=== PATIENT | male | born 1940 | race Caucasian/White ===

== ENCOUNTER → 2017-07-08 09:13 | Outpatient (POV) | payer MEDICARE, SELFPAY | PROVIDERS: Visit Provider Podiatrist | DX: Z00.00 Encounter for general adult medical examination without abnormal findings (principal) ==

== ENCOUNTER → 2017-07-22 10:15 | Outpatient (POV) | payer MEDICARE, SELFPAY | PROVIDERS: Visit Provider Podiatrist | DX: Z00.00 Encounter for general adult medical examination without abnormal findings (principal) ==

== ENCOUNTER → 2017-09-21 14:36 | Outpatient (CLI) | payer MEDICARE, SELFPAY ==
--- NOTE | 2017-09-21 14:46 | XR_ITS ---
XR foot wt bearing RT 3V HISTORY: Post traumatic pain ORDERING PHYSICIAN: Cristina Fowler DPM PATIENT AGE: 77 years COMPARISON: None FINDINGS: There is moderate hallux valgus with the first metatarsophalangeal angle of 34 degrees with hypertrophic changes of the distal aspect of the first metatarsal. No acute fracture or dislocation. There are old fracture of the distal tibia. IMPRESSION: Hallux valgus with bunion formation, no acute finding
--- NOTE | 2017-09-21 14:46 | XR_ITS ---
XR foot wt bearing LT 3V HISTORY: Posttraumatic pain ORDERING PHYSICIAN: Cristina Fowler DPM PATIENT AGE: 77 years COMPARISON: None FINDINGS: There is an oblique mildly displaced fracture involving the mid shaft of the fifth metatarsal. There is 3 mm medial displacement of the distal fracture fragment. No other significant anomalies are evident. IMPRESSION: Oblique mildly displaced fracture midshaft fifth metatarsal
== END ==
PROVIDERS: PCP Internal Medicine Adolescent Medicine; Visit Provider Podiatrist
DX: M79.672 Pain in left foot (principal)
CPT/HCPCS: 73630

== ENCOUNTER → 2017-10-24 08:38 | Outpatient (CLI) | payer MEDICARE, SELFPAY ==
--- NOTE | 2017-10-24 08:39 | XR_ITS ---
XR foot wt bearing LT 3V HISTORY: Pain, follow-up fracture ITS.REASON: fracture follow up ORDERING PHYSICIAN: Cristina Fowler DPM PATIENT AGE: 77 years COMPARISON: 09/21/2017 FINDINGS: Healing oblique fractures noted involving the mid to distal shaft of the fifth metatarsal with developing callus formation. There is approximate 4 mm medial displacement of the distal fracture fragment with good alignment. IMPRESSION: Healing fifth metatarsal fracture with mild displacement
== END ==
PROVIDERS: Visit Provider Podiatrist
DX: S92.352A Displaced fracture of fifth metatarsal bone, left foot, initial encounter for closed fracture (principal)
CPT/HCPCS: 73630

== ENCOUNTER → 2019-04-12 15:08 | Outpatient (CLI) | payer MEDICARE, SELFPAY ==
--- NOTE | 2019-04-12 15:22 | XR_ITS ---
PROCEDURE: XR FOOT WT BEARING RT 3V CLINICAL INDICATION: foot pain COMPARISON: [id number] XR foot wt bearing LT 3V from 09/21/2017 [id number] XR foot wt bearing RT 3V from 09/21/2017 [id number] XR foot wt bearing LT 3V from 10/24/2017 FINDINGS: There is a transverse fracture involving the base of the 5th metatarsal with mild proximal displacement of the proximal fracture fragment by 4 mm. There is mild hallux valgus with osteoarthritis of the 1st MTP joint and mild degenerative changes of the tarsal metatarsal junction. There is an old fracture of the distal tibia IMPRESSION: Transverse fracture base of 5th metatarsal with mild displacement Dictated by: Per Reyez MD 04/12/2019 16:32 Electronically signed by Per Reyez MD in [place] 04/12/2019 16:32
--- NOTE | 2019-04-12 15:22 | XR_ITS ---
PROCEDURE: XR ANKLE WT BEARING RT MIN 3V CLINICAL INDICATION: foot pain Pain, history of fracture COMPARISON: No exams were available for comparison FINDINGS: There is an old healed fracture involving the distal tibia. A faint calcific density is present distal to the fibula and could be due to an old injury. The ankle joint space is well preserved. There is a prominent posterior talar process. IMPRESSION: Old distal tibial fracture. Calcific density is present distal to the tip of the fibula and could be due to an avulsion injury age indeterminate. There are no old ankle films available for comparison Dictated by: Per Reyez MD 04/12/2019 16:33 Electronically signed by Per Reyez MD in [place] 04/12/2019 16:33
== END ==
PROVIDERS: Visit Provider Podiatrist
DX: M79.671 Pain in right foot (principal); M25.571 Pain in right ankle and joints of right foot
CPT/HCPCS: 73610; 73630

== ENCOUNTER → 2019-05-28 10:29 | Outpatient (CLI) | payer MEDICARE, SELFPAY ==
--- NOTE | 2019-05-28 11:02 | XR_ITS ---
PROCEDURE: XR FOOT WT BEARING RT 3V CLINICAL INDICATION: RT FOOT PAIN COMPARISON: No exams were available for comparison FINDINGS: There is a minimally displaced fracture involving the base of the 5th metatarsal. This is of unknown age. Please correlate with history. There is mild prominence of the posterior talar process. There is hallux valgus with mild osteoarthritic change of the 1st MTP joint and bunion formation of the distal aspect of the 1st metatarsal. Other findings:None. IMPRESSION: 1. Minimally distracted fracture at the base of the 5th metatarsal. 2. Hallux valgus with osteoarthritic change Dictated by: Per Reyez MD 05/28/2019 11:37 Electronically signed by Per Reyez MD in [place] 05/28/2019 11:37
== END ==
PROVIDERS: PCP Internal Medicine Adolescent Medicine; Visit Provider Podiatrist
DX: S90.31XA Contusion of right foot, initial encounter (principal); S90.121A Contusion of right lesser toe(s) without damage to nail, initial encounter; S92.351A Displaced fracture of fifth metatarsal bone, right foot, initial encounter for closed fracture
CPT/HCPCS: 73630

== ENCOUNTER → 2020-02-19 11:02 | Outpatient (CLI) | payer MEDICARE, SELFPAY ==
[2020-02-19 12:27] LABS: Chloride 107 mmol/L (98-107); Potassium 4.1 mmoL/L (3.5-5.1); Sodium 139 mmol/L (136-145)
[2020-02-19 12:30] LABS: Alanine Aminotransferase 12 U/L (12-78); Albumin Level 4.2 g/dl (3.5-5.0); Albumin/Globulin Ratio 1.2 (1.1-1.8); Alkaline Phosphatase 121 U/L (38-126); Anion Gap 10.1 mEq/L (5-15); Aspartate Amino Transferase 20 U/L (17-59); Bilirubin,Total 0.6 mg/dl (0.2-1.3); Blood Urea Nitrogen 8 mg/dl (9-20); Calcium 9.4 mg/dl (8.4-10.2); Carbon Dioxide 26 mmol/L (22.0-30.0); Cholesterol 213 mg/dl (140-200); Estimated Glomerular Filt Rate 81 ml/min (>60); GFR (African American) 98 ML/MIN (>60); Globulin 3.4 g/dL (1.3-3.2); Glucose 100 mg/dl (74-100); Total Protein,Serum 7.6 g/dl (6.3-8.2); Triglycerides 137 mg/dl (30-150); VLDL Cholesterol 27 mg/dL (0-40)
[2020-02-19 12:31] LABS: Chol/HDL Ratio 4.7 (1-3.5); HDL Cholesterol 45 mg/dl (40-60)
[2020-02-19 12:41] LABS: Direct LDL Cholesterol 124.09 mg/dL (100-129)
[2020-02-19 20:34] LABS: Free T4 (Free Thyroxine) 0.66 ng/dl (0.78-2.19)
== END ==
PROVIDERS: Visit Provider Nurse Practitioner Family
DX: E03.9 Hypothyroidism, unspecified (principal)
CPT/HCPCS: 36415; 80053; 80061; 84439; 84443

== ENCOUNTER 2021-05-22 09:11 | Emergency (ER) | payer MEDICARE, SELFPAY ==
[2021-05-22 10:22] VITALS: BP 135/84; PULSE 86; RESP 18; TEMP 36.8; O2SAT 97; BMI 17.9
--- NOTE | 2021-05-22 11:01 | HMH.EDUTC ---
[facility] [place] Disposition Clinical Impression: Right foot infection, Non-pressure chronic ulcer of other part of right foot limited to breakdown of skin, Callus of foot Foot ulcer, right Qualifiers: Non-pressure ulcer stage: with other severity Qualified Code(s): L97.518 - Non-pressure chronic ulcer of other part of right foot with other specified severity Disposition: Home, Self-Care Condition on Discharge: Good Instructions: Diabetic Foot Ulcer, DI for Diabetic Foot Ulcer Additional Instructions: Take tylenol or ibuprofen for pain or fever. Take the medications as directed. Follow up with your regular doctor. Follow up with podiatry. I put in a referral to Dr. Fowler, but you will need to call her office to schedule an appointment. Make sure you follow up with podiatry because you could lose you toe or your foot if this is not watched closely and treated appropriately. GO TO THE ER FOR ANY WORSENING SYMPTOMS Prescriptions: Mupirocin [Bactroban 2% Ointment 22gm tube] 1 applicatio TP TID 7 Days #1 gm Transmission Status: Received by [facility] #[id number] Ciprofloxacin HCl [Cipro 500mg Tab] 500 mg PO BID 10 Days #20 tab Transmission Status: Received by [facility] #[id number] clindamycin HCL [Cleocin HCl] 300 mg PO Q8H 10 Days #30 cap Transmission Status: Received by [facility] #[id number] Referrals: Provider,Referral, [Primary Care Provider] - Time of Disposition: 11:51 Medical Decision Making - Medical Records Medical records reviewed: No: I reviewed the patient's medical records. - Tanvir Inquiry Pt receiving controlled substance: No Vital Signs: 05/22/21 10:22 05/22/21 12:03 Temperature 98.2 F 98.2 F Temperature Source Oral Pulse Rate 86 Pulse Rate [Left] 86 Respiratory Rate 18 18 Blood Pressure 135/84 Blood Pressure [Right Arm] 135/84 Blood Pressure Mean [Right Arm] 101 02 Sat by Pulse Oximetry 97 Orders (Tests/Meds): ED MEDICATIONS Discontinued Medications Generic Name Dose Route Start Last Admin Trade Name Freq PRN Reason Stop Dose Admin Ceftriaxone Sodium 1 gm 05/22/21 11:20 05/22/21 11:31 Ceftriaxone 1gm Vial IM 05/22/21 11:21 1 gm ONCE ONE Administration Lidocaine HCl 0 ml 05/22/21 11:20 05/22/21 11:31 Lidocaine 1% 5ml Pf Vial IM 05/22/21 11:21 2 ml ONCE ONE Administration [facility] [place] HPI - General Stated complaint: right infection and redness of index toe Time Seen by Provider: 05/22/21 11:01 Mode of Arrival: Ambulatory Source of Information: Patient Limitations: No Limitations HEENT Symptoms (Recalled from RN notes): No Resp Symptoms (Recalled from RN notes): No Skin Symptoms (Recalled from RN notes): Yes MS Symptoms (Recalled from RN notes): Yes Functional Status (Recalled from RN notes): wnl - History of Present Illness Provider Complaint: pt c/o R toe w/ infection for seven weeks...Marvin and me cannot get well. . pts second toe on his R foot is completely red. - Related Data Home Medications Medication Instructions Recorded Confirmed levothyroxine 50 mcg capsule 50 mcg PO DAILY 04/16/19 05/28/19 Previous Rx's Medication Instructions Recorded Ciprofloxacin HCl [Cipro 500mg 500 mg PO BID 10 Days #20 tab 05/22/21 Tab] Mupirocin [Bactroban 2% Ointment 1 applicatio TP TID 7 Days #1 gm 05/22/21 22gm tube] clindamycin HCL [Cleocin HCl] 300 mg PO Q8H 10 Days #30 cap 05/22/21 Allergies Allergy/AdvReac Type Severity Reaction Status Date / Time Bactrim DS Allergy Uncoded 05/28/19 12:42 - Worker's Comp Is this a Worker's Comp case?: No [facility] History - Hepatitis A Screen Drug use history?: No High risk sexual behaviors?: No History of sexually transmitted infection?: No Currently employed?: No Childcare worker?: No Do you have indoor plumbing?: Yes Do you have electricity?: Yes Attestation statement:: This patient has been screened for Hepatitis A risk fact
[2021-05-22 12:03] VITALS: BP 135/84; PULSE 86; RESP 18; TEMP 36.8
== END 2021-05-22 12:05 | disposition home or self-care (01) ==
PROVIDERS: Emergency Provider Nurse Practitioner Family
DX: L97.511 Non-pressure chronic ulcer of other part of right foot limited to breakdown of skin (principal)
CPT/HCPCS: G0463; 87070; 87077; 87186; 87205; 96372; 99202; J0696

== ENCOUNTER 2023-08-08 16:06 | Inpatient (IN) | payer MEDICARE, SELFPAY ==
[2023-08-08] VITALS (17 sets, daily range): BP systolic 108–139; BP diastolic 71–112; PULSE 79–114; RESP 12–24; TEMP 36.6–36.9; O2SAT 87–99; BMI 18.6
--- NOTE | 2023-08-08 16:10 | XR_ITS ---
PROCEDURE INFORMATION: Exam: XR Chest Exam date and time: 08/08/2023 4:18 PM Age: 83 years old Clinical indication: Other: Hypoxia; Additional info: Hypoxia, AMS TECHNIQUE: Imaging protocol: Radiologic exam of the chest. Views: Portable semi upright chest x-ray. . COMPARISON: No relevant prior studies available. FINDINGS: Lungs: Consolidation in the right lung base near the costophrenic angle. No other airspace consolidation or nodules.. Pleural spaces: No pleural effusion. No pneumothorax. Heart/Mediastinum: No abnormalities. No cardiomegaly. No pulmonary vascular congestion. Calcified azygos lymph node. Bones/joints: No fractures or bone lesions. IMPRESSION: Right lower lobe pneumonia.
--- NOTE | 2023-08-08 16:10 | CT_ITS ---
PROCEDURE INFORMATION: Exam: CTA Head With Contrast, Arteriography Exam date and time: 08/08/2023 5:21 PM Age: 83 years old Clinical indication: Other: AMS TECHNIQUE: Imaging protocol: Computed tomographic angiography of the head with contrast. Exam focused on the arteries. 3D rendering (Not supervised by radiologist): MIP and/or 3D reconstructed images were created by the technologist. Radiation optimization: All CT scans at this facility use at least one of these dose optimization techniques: automated exposure control; mA and/or kV adjustment per patient size (includes targeted exams where dose is matched to clinical indication); or iterative reconstruction. Contrast material: ISO 370; Contrast volume: 90 ml; Contrast route: INTRAVENOUS (IV); COMPARISON: CT HEAD/BRAIN WO CON 08/08/2023 5:21 PM FINDINGS: ANTERIOR CIRCULATION: Right internal carotid artery: Intracranial segment is patent with no significant stenosis. No aneurysm. Right middle cerebral artery: No occlusion or significant stenosis. No aneurysm. Right anterior cerebral artery: No occlusion or significant stenosis. No aneurysm. Left internal carotid artery: Intracranial segment is patent with no significant stenosis. No aneurysm. Left middle cerebral artery: No occlusion or significant stenosis. No aneurysm. Left anterior cerebral artery: No occlusion or significant stenosis. No aneurysm. POSTERIOR CIRCULATION: Right vertebral artery: No occlusion or significant stenosis. No aneurysm. Terminates in the PICA. Left vertebral artery: No occlusion or significant stenosis. No aneurysm. Basilar artery: No occlusion or significant stenosis. No aneurysm. Right posterior cerebral artery: No occlusion or significant stenosis. No aneurysm. Left posterior cerebral artery: No occlusion or significant stenosis. No aneurysm. Hypoplastic P1. Brain: No definite mass, mass effect, or midline shift. Cerebral ventricles: No ventriculomegaly. Bones/joints: No acute fracture or focal bone lesions. Soft tissues: No masses or swelling. IMPRESSION: No large vessel occlusion. No acute intracranial abnormalities.
--- NOTE | 2023-08-08 16:10 | CT_ITS ---
PROCEDURE INFORMATION: Exam: CT Head Without Contrast Exam date and time: 08/08/2023 5:21 PM Age: 83 years old Clinical indication: Altered mental status/memory loss; Additional info: AMS TECHNIQUE: Imaging protocol: Computed tomography of the head without contrast. Radiation optimization: All CT scans at this facility use at least one of these dose optimization techniques: automated exposure control; mA and/or kV adjustment per patient size (includes targeted exams where dose is matched to clinical indication); or iterative reconstruction. COMPARISON: CT ANGIO HEAD 08/08/2023 5:21 PM FINDINGS: Limitations: Motion artifact. Brain: No hemorrhage. Moderately extensive low density in the white matter of both cerebral hemispheres without mass effect. No other intra-axial or extra-axial lesions or masses. No midline shift. Cerebral ventricles: Ventricular systems are mildly prominent but are age-appropriate. Paranasal sinuses: Visualized sinuses are well aerated. No fluid levels. Mastoid air cells: Visualized mastoid air cells are well aerated. Bones: No acute fracture or bone lesions. Soft tissues: No abnormalities. IMPRESSION: 1. No acute intracranial abnormality. 2. Cerebral atrophy and moderately extensive white matter microvascular disease.
--- NOTE | 2023-08-08 16:10 | CT_ITS ---
PROCEDURE INFORMATION: Exam: CTA Chest With Contrast Exam date and time: 08/08/2023 5:25 PM Age: 83 years old Clinical indication: Other: Hypoxia; Additional info: AMS, hypoxia TECHNIQUE: Imaging protocol: Computed tomographic angiography of the chest with contrast. Exam focused on the arteries. 3D rendering (Not supervised by radiologist): MIP and/or 3D reconstructed images were created by the technologist. Radiation optimization: All CT scans at this facility use at least one of these dose optimization techniques: automated exposure control; mA and/or kV adjustment per patient size (includes targeted exams where dose is matched to clinical indication); or iterative reconstruction. Contrast material: ISO 370; Contrast volume: 90 ml; Contrast route: INTRAVENOUS (IV); COMPARISON: CR XR CHEST PORTABLE 08/08/2023 4:18 PM FINDINGS: Pulmonary arteries: No large central pulmonary emboli. Assessment of the small peripheral subsegmental branch vessels in the lung bases was limited due to respiratory motion. 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 No dissection or rupture. Mild-moderate aortic tortuosity with mild calcific atherosclerosis. No mediastinal hematoma. Thyroid: The thyroid gland is moderately atrophic. Correlate clinically for evidence of hypothyroidism. Lungs: Mild-moderate bilateral bronchiectasis. Mild-moderate peripheral fibrosis in the upper, mid, and lower lung zacarias. Peripheral consolidative density in the lateral basilar right lower lobe is concerning for superimposed pneumonia versus non infectious alveolitis, or possibly a small zone of peripheral pulmonary contusion given the nearby lower right posterior rib fractures. No pulmonary mass lesions are identified. 2 cm aerated lung cyst in the lateral left lower lobe. Mild pleuroparenchymal scarring in the pulmonary apices bilaterally. Pleural spaces: No pleural effusion. No pneumothorax. Heart: Heart size normal. Mild coronary artery calcification. No pericardial effusion. Esophagus: The esophagus is largely contracted but demonstrates no gross abnormality. Lymph nodes: No supraclavicular or axillary adenopathy. Enlarged pretracheal retrocaval node, nonspecific. Bones/joints: Acute fracture of the posterior right 12th rib with mild displacement. Acute fracture of the right posterior 11th rib with slight displacement. Chronic fracture of the right posterior 10th and 9th ribs. No segmental rib fractures. Osteopenia. Soft tissues: The soft tissues of the chest wall demonstrate no acute abnormality. IMPRESSION: 1. No large central pulmonary emboli. Assessment of the small peripheral branch vessels in the lung bases was limited by respiratory motion. 2. Acute minimally displaced mildly displaced fractures of the right posterior 11th and 12th ribs. No pneumothorax. 3. Peripheral consolidative airspace disease in the posterolateral right lung base. This could represent pneumonia, alveolitis, or possibly small pulmonary contusion given the nearby rib fractures. 4. Mild-moderate peripheral interstitial fibrosis in the upper, mid, and basilar lung zacarias. Mild-moderate bilateral bronchiectasis. 5. Enlarged pretracheal retrocaval node, nonspecific.The thyroid gland is moderately atrophic. Correlate clinically for evidence of hypothyroidism.
--- NOTE | 2023-08-08 16:10 | CT_ITS ---
PROCEDURE INFORMATION: Exam: CTA Neck With Contrast Exam date and time: 08/08/2023 5:21 PM Age: 83 years old Clinical indication: Other: AMS TECHNIQUE: Imaging protocol: Computed tomographic angiography of the neck with contrast. Exam focused on the cervical segments of the vasculature. 3D rendering (Not supervised by radiologist): MIP and/or 3D reconstructed images were created by the technologist. Radiation optimization: All CT scans at this facility use at least one of these dose optimization techniques: automated exposure control; mA and/or kV adjustment per patient size (includes targeted exams where dose is matched to clinical indication); or iterative reconstruction. Contrast material: ISO 370; Contrast volume: 90 ml; Contrast route: INTRAVENOUS (IV); COMPARISON: CT ANGIO HEAD 08/08/2023 5:21 PM FINDINGS: Right common carotid artery: No stenosis. No dissection or occlusion. Right internal carotid artery: No stenosis of the extracranial segment. No dissection or occlusion. Right external carotid artery: No occlusion or stenosis of the origin. Left common carotid artery: No stenosis. No dissection or occlusion. Left internal carotid artery: No stenosis of the extracranial segment. No dissection or occlusion. Left external carotid artery: No occlusion or stenosis of the origin. Right vertebral artery: No stenosis. No dissection or occlusion. Left vertebral artery: No stenosis. No dissection or occlusion. Soft tissues: No masses or edema. Bones/joints: No acute fracture, subluxations, or bone lesions. Degenerative disc space narrowing and facet hypertrophy at multiple levels of the cervical spine. IMPRESSION: No stenosis or occlusion. REFERENCES: NASCET CRITERIA. The degree of stenosis in the cervical segment of the internal carotid artery is based on NASCET criteria. Normal is no stenosis. Mild is less than 50% stenosis. Moderate is 50-69% stenosis. Severe is 70% to 99% stenosis. Total occlusion is no detectable patent lumen.
--- NOTE | 2023-08-08 16:10 | CT_ITS ---
PROCEDURE INFORMATION: Exam: CT Abdomen And Pelvis With Contrast Exam date and time: 08/08/2023 5:25 PM Age: 83 years old Clinical indication: Other: AMS TECHNIQUE: Imaging protocol: Computed tomography of the abdomen and pelvis with contrast. Radiation optimization: All CT scans at this facility use at least one of these dose optimization techniques: automated exposure control; mA and/or kV adjustment per patient size (includes targeted exams where dose is matched to clinical indication); or iterative reconstruction. Contrast material: ISOVUE; Contrast volume: 70 ml; Contrast route: IV; COMPARISON: CT ANGIO CHEST PE PROTOCOL 08/08/2023 5:25 PM FINDINGS: Esophagus: The visualized distal esophagus is largely contracted without gross abnormality. Liver: Liver assessment is motion limited. Normal contour. No mass lesions. No intrahepatic biliary ductal dilatation. Gallbladder and bile ducts: Gallbladder is moderately distended but otherwise unremarkable. Nondilated bile ducts. Pancreas: Mild pancreatic atrophy without acute abnormality. No pancreatic ductal dilatation. Spleen: Normal. No splenomegaly. 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 This does not require further evaluation. The right adrenal gland is normal. Kidneys and ureters: No acute abnormalities. No hydronephrosis or hydroureter. No urolithiasis is identified although excretory phase contrast in the collecting system limits sensitivity for urolithiasis. Stomach and bowel: The stomach is unremarkable. The small bowel is nondilated with no gross abnormality. No acute colonic abnormalities. There are few diverticula present in the distal colon without evidence of acute diverticulitis. Appendix: No evidence of appendicitis. Intraperitoneal space: No peritoneal free fluid or air. Vasculature: No acute process. No abdominal aortic aneurysm. Mild-moderate calcific atherosclerosis. Lymph nodes: No adenopathy. Urinary bladder: Adames catheter in place with balloon appropriately positioned in the urinary bladder, which is largely contracted without gross abnormality. Reproductive: Severe prostate enlargement and heterogeneity, nonspecific, correlate with PSA. Bones/joints: No acute osseous abnormalities in the abdomen/pelvis. Osteopenia. Old healed and fixated fractures in the right hemipelvis without gross complication. Chronic appearing mild superior endplate compression deformities of L5 and L1. Lower right posterior rib fractures again noted, please see chest CT report. Soft tissues: Unremarkable. IMPRESSION: 1. No acute findings in the abdomen/pelvis. 2. Nonemergent findings detailed above.
--- NOTE | 2023-08-08 16:12 | HMH.EDGENADL ---
Discharge Plan Disposition Patient Disposition: Admitted Condition: Serious Prescriptions Prescriptions: No Action levothyroxine 100 mcg tablet 100 mcg PO DAILY Patient Comments: TAKE 1 TABLET BY MOUTH EVERY DAY gabapentin 100 mg capsule 100 mg PO TIDP PRN (Reason: Shingles Pain) Patient Comments: TAKE 1 CAPSULE BY MOUTH THREE TIMES DAILY NEEDED FOR SHINGLES PAIN Referrals Follow up/Referrals: Nate Fajardo MD [Primary Care Provider] - See instructions Clinical Impressions Clinical Impression: RLL pneumonia, UTI (urinary tract infection), Encephalopathy, metabolic, Septic shock Discharge ED Provider: Flynn Sanchez Adult HPI General Chief complaint: Weakness Stated complaint: hypoxia, been in bed for days Time Seen by Provider: 08/08/23 16:09 History of Present Illness HPI narrative: 83-year-old male with with past medical history significant for diabetes, hypothyroidism, presents today for evaluation of mental status. EMS states the patient was found in an altered state in his bed. Had reportedly been and has been alone for the past 2 to 3 days per neighbor who found him in his home. Blood pressure and blood glucose within range en route to ED. Further history this time difficult obtain Related Data Home Medications Medication Instructions Recorded Confirmed gabapentin 100 mg capsule 100 mg PO TIDP PRN Shingles Pain 08/08/23 08/08/23 levothyroxine 100 mcg tablet 100 mcg PO DAILY 08/08/23 08/08/23 Allergies Allergy/AdvReac Type Severity Reaction Status Date / Time Bactrim DS Allergy Uncoded 05/28/19 12:42 [facility] Disclaimer: The information contained in this section may have been updated after the patient was seen, as this information can be updated by other users. Medical History (Updated 08/08/23 @ 18:39 by Flynn Sanchez DO) Shingles Shingles (herpes zoster) polyneuropathy Diabetes Hypothyroid Social History (Updated 08/08/23 @ 17:45 by Kade Trammell RN) Smoking Status: Unknown if ever smoked alcohol intake: never substance use type: denies use current occupational status: retired Travel in the last 8 weeks: None household members: spouse and family housing: house ROS Obtained: Yes All systems reviewed & no additional complaints except as documented Physical Exam General General appearance: in no apparent distress, lethargic and cachectic Head Head exam: atraumatic and normocephalic Eye Eye exam: Present normal appearance, PERRL and EOMI ENT ENT exam: Present normal oropharynx and mucous membranes moist Neck Neck exam: Present full ROM; Absent meningismus Respiratory Respiratory exam: Present other (Decreased breath sounds on the right.); Absent respiratory distress, wheezes, stridor or accessory muscle use Cardiovascular Cardiovascular exam: Present normal rhythm and tachycardia Abdominal Exam Abdominal exam: Present soft; Absent distention, tenderness, guarding, rebound or rigidity Neurological Exam Neurological exam: Present alert and motor sensory deficit Expanded Neurological Exam Coma scale eye opening: Spontaneous Coma scale motor response: Withdraws to pain Coma scale verbal response: None Coma scale total: 9 Psychiatric Psychiatric exam: Present normal affect and normal mood Skin Skin exam: Present warm and dry Medical Decision Making Medical Records Medical records reviewed: Yes I reviewed the patient's medical records. Tanvir Inquiry Pt receiving controlled substance: No Tanvir was queried for this patient: No Vital Signs: 08/08/23 16:06 08/08/23 16:34 08/08/23 16:45 Temperature 97.8 F Temperature Source Axillary Pulse Rate 114 H 103 H Pulse Rate [Left] 108 H Respiratory Rate 18 24 18 Blood Pressure 139/112 H 115/74 Blood Pressure [Right Arm] 130/81 Blood Pressure Mean 117 87 Blood Pressure Mean [Right Arm] 97 Blood Pressure Source [Right Arm] Automatic Cuff Blood Pressure Position [Right Arm] Supine 02 Sat by Pulse Oximetry 87 L 95 96 Oxygen Delivery Method Room Air Nasal Cannula Nasal Cannula Oxygen Flow Rate (LPM) 4 4 08/08/23 17:01 08/08/23 17:34 08/08/23 17:46 Temperature Temperature Source Pulse Rate 108 H 102 H 102 H Pulse Rate [Left] Respiratory Rate 18 21 17 Blood Pressure 139/86 115/78 125/90 Blood Pressure [Right Arm] Blood Pressure Mean 103 90 95 Blood Pressure Mean [Right Arm] Blood Pressure Source [Right Arm] Blood Pressure Position [Right Arm] 02 Sat by Pulse Oximetry 97 98 98 Oxygen Delivery Method Nasal Cannula Nasal Cannula Nasal Cannula Oxygen Flow Rate (LPM) 2 2 4 08/08/23 18:00 08/08/23 18:15 Temperature Temperature Source Pulse Rate 91 H 94 H Pulse Rate [Left] Respiratory Rate 18 18 Blood Pressure 123/96 H 108/75 L Blood Pressure [Right Arm] Blood Pressure Mean 104 86 Blood Pressure Mean [Right Arm] Blood Pressure Source [Right Arm] Blood Pressure Position [Right Arm] 02 Sat by Pulse Oximetry 97 97 Oxygen Delivery Method Nasal Cannula Nasal Cannula Oxygen Flow Rate (LPM) 2 2 Lab Data Lab Results 08/08/23 16:12: VBG pH 7.43 H, VBG pCO2 31.8 L, VBG pO2 47.0 H, VBG HCO3 20.5 L, VBG Total CO2 21.5 L, VBG O2 Saturation 84.9 H, VBG Base Excess -3.9 L, VBG Lactic Acid 4.8 H 08/08/23 16:15: Urine Color Halle, Urine Appearance Clear, Urine pH 6.5, Ur Specific [place] 1.025, Urine Protein 1+, Urine Glucose (UA) Negative, Urine Ketones 1+, Urine Blood Trace-i, Urine Nitrate Positive, Urine Bilirubin 3+ A, Urine Urobilinogen >=8.0, Ur Leukocyte Esterase Negative, Urine RBC 3-5, Urine WBC None, Ur Squamous Epith Cells Occasional, Urine Bacteria Trace 08/08/23 16:18: WBC 14.4 H, RBC 5.98, Hgb 17.7, Hct 55.9 H, MCV 93.5, MCH 29.7, MCHC 31.7 L, RDW 16.3, Plt Count 257, MPV 8.9, Neut % (Auto) 93.7 H, Lymph % (Auto) 3.2 L, [place] % (Auto) 2.5, Eos % (Auto) 0.2, Baso % (Auto) 0.4, Neut # (Auto) 13.5 H, Lymph # (Auto) 0.5 L, [place] # (Auto) 0.4, Eos # (Auto) 0.0, Baso # (Auto) 0.1, Sodium 148 H, Potassium 5.3 H, Chloride 112 H, Carbon Dioxide 19 L, Anion Gap 22.3 H, BUN 62 H, Creatinine 1.10, Estimated Creat Clear 46, Estimated GFR 64, Est GFR ( Amer) 78, Glucose 140 H, Calcium 9.8, Total Bilirubin 2.5 H, AST 151 H, ALT 90 H, Alkaline Phosphatase 121, Total Creatine Kinase 2352 H*, Troponin I 0.06 H, Total Protein 9.4 H, Albumin 4.4, Globulin 5.0 H, Albumin/Globulin Ratio 0.9 L, TSH 21.20 H, Free T4 0.90 08/08/23 16:18 08/08/23 16:18 Orders (Tests/Meds): ED MEDICATIONS Generic Name Dose Route Start Last Admin Trade Name Fariha PRN Reason Stop Dose Admin Enoxaparin Sodium 40 mg 08/09/23 09:00 Enoxaparin 40mg/0.4ml Syringe SQ 09/08/23 08:59 DAILY MAGI Lactated Ringer's 1,870 mls @ 935 mls/hr 08/08/23 16:45 08/08/23 16:47 Lactated Ringer's 1000 Ml Bag 30 ml/kg infuse over 2 hr (1870 ml) 08/08/23 18:44 935 mls/hr IV Administration .Q2H ONE Doxycycline Hyclate 100 mg/ 250 mls @ 166.667 mls/hr 08/08/23 17:00 08/08/23 17:03 Sodium Chloride IV 08/18/23 16:59 166.667 mls/hr Q12H MAGI Administration Cefepime HCl 2 gm/ Sodium 100 mls @ 200 mls/hr 08/08/23 21:30 Chloride IV 08/18/23 21:29 Q12H MAGI Vancomycin/PEG/NADA/Lysine/Water 1.5 gm in 300 mls @ 150 mls/hr 08/08/23 18:45 Vancomycin 1.5gm/300ml (Peg) Premix IV 08/08/23 20:44 ONCE ONE Miscellaneous 1 each 08/08/23 18:30 08/08/23 18:34 Vancomycin Consult Request NOTAPPLIC 09/07/23 18:29 1 each CONSULT PHARMACY MAGI Administration Pantoprazole Sodium 40 mg 08/08/23 21:00 Pantoprazole 40mg Vial IV 09/07/23 20:59 HS MAGI Discontinued Medications Generic Name Dose Route Start Last Admin Trade Name Fariha PRN Reason Stop Dose Admin Ceftriaxone Sodium 2 gm/ 100 mls @ 200 mls/hr 08/08/23 16:49 08/08/23 17:01 Sodium Chloride IV 08/08/23 17:18 200 mls/hr Q24H ONE Administration Iopamidol 160 ml 08/08/23 17:28 08/08/23 17:29 Iopamidol-370 (76%);100ml Bottle IV 08/08/23 17:29 160 ml ONCE ONE Administration Levothyroxine Sodium 200 mcg 08/08/23 18:27 Levothyroxine Sodium 100 Mcg Vial IV 08/08/23 18:28 ONCE ONE Sodium Chloride 50 ml 08/08/23 17:28 08/08/23 17:29 0.9 % Sodium Chloride 50 Ml Vial IV 08/08/23 17:29 50 ml ONCE ONE Administration Sodium Chloride 10 ml 08/08/23 17:28 08/08/23 17:29 Sodium Chloride 0.9% 10ml Syr (Rad Only) IV 08/08/23 17:29 10 ml ONCE ONE Administration ORDERS Category Date Time Status CT abdomen pelvis w con Stat Cat Scan 08/08/23 16:[address] angio chest PE protocol Stat Cat Scan 08/08/23 16:[address] angio head Stat Cat Scan 08/08/23 16:[address] angio neck Stat Cat Scan 08/08/23 16:[address] head/brain wo con Stat Cat Scan 08/08/23 16:10 Completed CXR --portable [XR chest portable] Stat Exams 08/08/23 16:10 Completed CBC w/Auto Diff [Complete Blood Count Auto Diff] Stat Lab 08/08/23 16:18 Results CK [Creatine Kinase] Stat Lab 08/08/23 16:18 Completed CMP [Comprehensive Metabolic Panel] Stat Lab 08/08/23 16:18 Completed Complete Blood Count Auto Diff AMLAB Lab 08/09/23 06:00 Ordered Comprehensive Metabolic Panel AMLAB Lab 08/09/23 06:00 Ordered Free T4 (Free Thyroxine) Stat Lab 08/08/23 16:18 Completed Magnesium AMLAB Lab 08/09/23 06:00 Ordered TSH [Thyroid Stimulating Hormone] Stat Lab 08/08/23 16:18 Completed Trop I [Troponin I] Stat Lab 08/08/23 16:18 Completed Troponin I Q3H Lab 08/08/23 19:15 Ordered Troponin I Q3H Lab 08/08/23 22:15 Ordered UA [Urinalysis and Microscopic] Stat Lab 08/08/23 16:15 Ordered Blood Culture Stat Micro 08/08/23 18:17 Ordered VBG [Venous Blood Gas] Stat RT 08/08/23 16:15 Ordered Medical Decision Narrative: 83-year-old male with with past medical history significant for diabetes, hypothyroidism, presents today for evaluation of mental status. EMS states the patient was found in an altered state in his bed. Had reportedly been and has been alone for the past 2 to 3 days per neighbor who found him in his home. He was also found to be hypoxic per EMS. Further history difficult to obtain. On assessment, he was normotensive, tachycardic, afebrile. Minimally responsive, he did withdraw from pain. GCS of 9. Chest with decreased breath sounds on the right. Abdomen soft nondistended. On nonrebreather for oxygen support. No signs of trauma. Differential diagnoses include but limited to intracranial abnormality, ACS, arrhythmia, electrolyte disturbance, UTI, sepsis, septic shock, pleural effusion, pneumonia, pneumothorax, among others. EKG personally inter by me. Sinus tachycardia with a rate of 110 bpm. No ischemic changes. QTc is not prolonged at 386. Patient's lab workup today has been remarkable for a WBC of 14.4. VBG showing pH of 7.43. pCO2 31.8. Lactic acid of 4.8. Sodium 148, potassium 5.3, chloride 112. Anion gap of 22.3. BUN 62. Creatinine within range at 1.1. His CK is elevated at 2352. Initial troponin of 0.06. TSH 21.2, free T4 of 0.9. Urinalysis showing positive nitrates. CT scan of the head and CTA head/neck without any acute abnormalities. He does have a right lower lobe pneumonia on my informal interpretation on chest x-ray. On my wet read of the CT scan of the chest, I can also visualize a right lower lobe pneumonia, radiology report confirmed. CT scan of the abdomen and pelvis with no acute findings. After patient's chest x-ray resulted and given that he had a right lower lobe pneumonia, I did order for ceftriaxone and doxycycline to initiate treatment. Will broaden antibiotics given that patient's labs are consistent with septic shock. I did consult with hospital medicine and discussed management and they have agreed to evaluate and admit. Critical Care Critical Care Time Critical Care Time: Yes Attestation: On 08/08/23, the high probability of a clinically significant, sudden or life threatening deterioration of the following system(s) required my full and direct attention, intervention and personal management. The time I documented below is in addition to time spent performing reported procedures but includes the following listed in this critical care notation. Total Time Total Critical Care Time: 35
--- NOTE | 2023-08-08 16:13 | ECG_ITS ---
APPROVED REPORT Exam: Resting ECG HR:110 bpm ECG Measurements Heart Rate 110 AXES ME 150 P 82 QRSd 90 QRS 90 QT 321 T 83 QTc 386 Conclusion SINUS TACHYCARDIA WITH OCCASIONAL SUPRAVENTRICULAR PREMATURE COMPLEXES NONSPECIFIC ST & T-WAVE ABNORMALITY ABNORMAL RHYTHM ECG UNCONFIRMED REPORT Electronically signed by : VALERIE TORRE, 08/08/2023 23:49:40
[2023-08-08 16:27] LABS: VBG Base Excess -3.9 mmol/L (-2.4-2.3); VBG HCO3 20.5 mmol/L (23-30); VBG Oxygen Saturation 84.9 % (50-70); VBG PCO2 31.8 mmol/L (35-51); VBG PH 7.43 mmol/L (7.31-7.41); VBG Total CO2 21.5 mmol/L (23-27)
[2023-08-08 16:30] LABS: Lactate Venous 4.8 mmol/L (0.4-2.0)
[2023-08-08 16:31] LABS: Basophils # 0.1 K/mm3 (0-0.2); Basophils % 0.4 % (0.1-2.0); Eosinophils % 0.2 % (0.1-12.0); Hematocrit 55.9 % (42.0-52.0); Hemoglobin 17.7 g/dL (14.1-18.0); Lymphocytes # 0.5 K/mm3 (0.7-4.5); Lymphocytes % 3.2 % (10-50); Mean Corpuscular HGB Conc 31.7 g/dL (31.8-35.4); Mean Corpuscular Hemoglobin 29.7 pg (27.0-31.2); Mean Corpuscular Volume 93.5 fl (80-94); Mean Platelet Volume 8.9 fl (7.4-10.4); Monocytes # 0.4 K/mm3 (0.1-1.0); Monocytes % 2.5 % (1.7-9.3); Neutrophils # 13.5 K/mm3 (1.8-7.8); Neutrophils % 93.7 % (37.0-80.0); Platelet Count 257 K/mm3 (142-424); Red Blood Count 5.98 M/mm3 (4.60-6.20); Red Cell Distribution Width 16.3 % (11.5-17.5); White Blood Count 14.4 K/mm3 (4.8-10.8)
[2023-08-08 16:31] LABS: Microscopic, Urine URINE MICROSCOPIC (MICROSCOPIC)
[2023-08-08 16:43] LABS: Chloride 112 mmol/L (98-107); Potassium 5.3 mmoL/L (3.5-5.1); Sodium 148 mmol/L (136-145)
[2023-08-08 16:46] LABS: Alanine Aminotransferase 90 U/L (12-78); Albumin Level 4.4 g/dl (3.5-5.0); Albumin/Globulin Ratio 0.9 (1.1-1.8); Alkaline Phosphatase 121 U/L (38-126); Anion Gap 22.3 mEq/L (5-15); Aspartate Amino Transferase 151 U/L (17-59); Bilirubin,Total 2.5 mg/dl (0.2-1.3); Blood Urea Nitrogen 62 mg/dl (9-20); Calcium 9.8 mg/dl (8.4-10.2); Carbon Dioxide 19 mmol/L (22.0-30.0); Creatinine Clearance Estimated 46 mL/min (50-200); Estimated Glomerular Filt Rate 64 ml/min (>60); GFR (African American) 78 ML/MIN (>60); Glucose 140 mg/dl (74-100); Total Protein,Serum 9.4 g/dl (6.3-8.2)
[2023-08-08] MEDS: LACTATED RINGERS 935 ML IV (16:47)
[2023-08-08 16:51] LABS: Appearance,Urine CLEAR (Clear); Blood, Urine TRACE-I (Negative); Color,Urine AMBER (Yellow); Glucose,Urine (UA) Negative (Negative); Ketones,Urine 1+ (Negative); Leukocyte Esterase,Urine Negative (Negative); Nitrate,Urine POSITIVE (Negative); PH,Urine 6.5 (5.0-8.5); Protein,Urine 1+ (Negative); Specific Gravity, Urine 1.025 (1.005-1.030); Urobilinogen,Urine >=8.0 EU/dl (0.2)
[2023-08-08 16:59] LABS: Bilirubin,Urine 3+ (Negative)
[2023-08-08 16:59] LABS: Troponin I 0.06 ng/ml (0.00-0.034)
[2023-08-08 17:00] LABS: MANUAL DIFFERENTIAL MANUAL DIFFERENTIAL (MANUAL DIFF)
[2023-08-08] MEDS: CEFTRIAXONE SODIUM 2 GM in 0.9 % SODIUM CHLORIDE 100 ML IV (17:01)
[2023-08-08] MEDS: DOXYCYCLINE HYCLATE 100 MG in 0.9 % SODIUM CHLORIDE 250 ML 166.667000000000002 MG IV (17:03)
--- NOTE | 2023-08-08 17:15 | PC.NURSE ---
going to CT
[2023-08-08 17:17] LABS: Creatine Kinase 2352 U/L (55-170)
[2023-08-08 17:21] LABS: Bacteria,Urine Trace /lpf; Squamous Epithelial Cell,Urine Occasional #/hpf (0-5)
[2023-08-08] MEDS: IOPAMIDOL-370 (76%);100ML BOTTLE 160 ML IV (17:29)
[2023-08-08] MEDS: SODIUM CHLORIDE 0.9% 10ML SYR (RAD ONLY) 10 ML IV (17:29)
[2023-08-08] MEDS: 0.9 % SODIUM CHLORIDE 50 ML VIAL IV (17:29)
--- NOTE | 2023-08-08 17:31 | PC.NURSE ---
pt returned from CT
--- NOTE | 2023-08-08 18:32 | PC.NURSE ---
Per House, Dr. Pineda would like pt adx as step-down. States there the pt in room 218 is being d/c and they will have to turn-over the room. Staff will call ER once room is ready.
--- NOTE | 2023-08-08 18:33 | PC.NURSE ---
Spoke to Liz with [facility] to verify Vanc and Levothyroxine dosing
[2023-08-08] MEDS: VANCOMYCIN CONSULT REQUEST 1 EACH NOTAPPLIC ×2 (18:34→21:54)
[2023-08-08] MEDS: VANCOMYCIN/WATER FOR INJ (PEG) 1.5 GM/300 ML PIGGYBACK IV (18:41)
[2023-08-08] MEDS: LEVOTHYROXINE SODIUM 100 MCG VIAL 200 MCG IV (18:41)
[2023-08-08 19:11] LABS: Lymphocytes % 9 % (10-50); Monocytes % 1 % (2-9); Neutrophils % 90 % (42-76); Platelet Estimate Normal; RBC Morphology Normal; Total Cells Counted 100
--- NOTE | 2023-08-08 19:13 | PC.NURSE ---
Report still unable to be given at this time. 2nd floor to call when available
[2023-08-08 19:48] LABS: Troponin I 0.07 ng/ml (0.00-0.034)
--- NOTE | 2023-08-08 19:56 | PC.NURSE ---
Report given to ALFREDITO Barr at this time
[2023-08-08 20:02] LABS: Acetone, Serum (Rapid) None Detected (None Detect)
[2023-08-08 20:06] LABS: Ethyl Alcohol < 10 mg/dl (0-10)
[2023-08-08 20:28] LABS: Reflex Lactic Add Lactic Reflex
[2023-08-08] MEDS: CEFEPIME HCL 2 GM in 0.9 % SODIUM CHLORIDE 100 ML IV (21:18)
[2023-08-08] MEDS: PANTOPRAZOLE 40MG VIAL 40 MG IV (21:18)
[2023-08-08] MEDS: 0.9 % SODIUM CHLORIDE 1000ML 1,000 ML 150 ML IV (21:37)
[2023-08-08 21:40] LABS: Lactic Acid Follow Up (RFLX 1) 3.5 mmol/L (0.7-2.1)
[2023-08-08] MEDS: 0.9 % SODIUM CHLORIDE 1000ML 1,000 ML 999 ML IV (21:56)
[2023-08-08 22:05] LABS: Ammonia < 9 umol/L (9-30)
--- NOTE | 2023-08-08 22:09 | EXP.SEPSISRE ---
[facility] Tissue Perfusion Eval Sepsis Re-Evaluation Performed: Yes Date Performed: 08/08/23 Time Performed: 21:40
[2023-08-08 22:11] LABS: POC Glucose,Bedside 120 (70-110)
[2023-08-08 22:17] LABS: Troponin I 0.07 ng/ml (0.00-0.034)
[2023-08-08 22:59] LABS: Reflex Lactic (2 hrs) Add Lactic Reflex
--- NOTE | 2023-08-08 23:15 | EXP.HP ---
History of Present Illness *Admission Date: 08/08/23 *Reason for visit:: Altered mental status *History of present illness: This is an 83-year-old male with past medical history of diabetes and hypothyroidism who presents to the emergency department for altered mental status. Information surrounding patient unable to be obtained secondary to patient's mental status at this time. Does not appear to have much medical history other than hypothyroidism. Does follow in the outpatient setting with podiatry but no other documentation to aid in collateral. No family at bedside. Patient was apparently found by a neighbor who had not seen him in several days. When neighbor found him, he was unresponsive. At the time of patient's arrival to the emergency department via EMS, he was noted to have stable blood pressure and glucose, requiring 2 L nasal cannula for hypoxia but otherwise stable. Emergency department workup notable for blood blood cell 14, VBG showing AHI 7.4, lactic acid of 4.8, potassium of 5.3 with anion gap of 22. Creatinine 1.1. CK of 2352, mildly elevated troponin at 0.04. TSH of 21 with a free T4 of 0.9. Urinalysis positive for nitrates but otherwise negative. CT scan of the abdomen and chest notable for right lower lobe pneumonia with subsequent acute 11th and 12th rib fractures. He is also noted to have elevated AST and ALT, with a T bilirubin of 2.5. Given patient's encephalopathy and likely septic pneumonia with rhabdomyolysis, he will be admitted to the hospital service for further evaluation management. [facility] Disclaimer: The information contained in this section may have been updated after the patient was seen, as this information can be updated by other users. Medical History (Updated 08/08/23 @ 23:48 by SERGIO Smallwood) Shingles Shingles (herpes zoster) polyneuropathy Diabetes Hypothyroid Social History (Updated 08/08/23 @ 17:45 by Kade Trammell RN) Smoking Status: Unknown if ever smoked alcohol intake: never substance use type: denies use current occupational status: retired Travel in the last 8 weeks: None household members: spouse and family housing: house Review of Systems Review of Systems Review of systems:: unable to obtain Meds Home Medications and Allergies Home Medications Medication Instructions Recorded Confirmed Type gabapentin 100 mg capsule 100 mg PO TIDP PRN Shingles Pain 08/08/23 08/08/23 History levothyroxine 100 mcg tablet 100 mcg PO DAILY 08/08/23 08/08/23 History New Prescriptions to Start Prescriptions: Allergies Allergy/AdvReac Type Severity Reaction Status Date / Time Bactrim DS Allergy Uncoded 05/28/19 12:42 Exam Data for Last 24 hours Vital signs and Labs for Last 24 Hours: Temp Pulse Resp BP Pulse Ox O2 Del Method O2 Flow Rate 98.4 F 81 12 131/73 99 Room Air 2 08/08/23 20:00 08/08/23 21:52 08/08/23 20:00 08/08/23 20:00 08/08/23 20:00 08/08/23 20:00 08/08/23 19:58 Laboratory Results - last 24 hr 08/08/23 16:12: VBG pH 7.43 H, VBG pCO2 31.8 L, VBG pO2 47.0 H, VBG HCO3 20.5 L, VBG Total CO2 21.5 L, VBG O2 Saturation 84.9 H, VBG Base Excess -3.9 L, VBG Lactic Acid 4.8 H 08/08/23 16:15: Urine Color Halle, Urine Appearance Clear, Urine pH 6.5, Ur Specific [place] 1.025, Urine Protein 1+, Urine Glucose (UA) Negative, Urine Ketones 1+, Urine Blood Trace-i, Urine Nitrate Positive, Urine Bilirubin 3+ A, Urine Urobilinogen >=8.0, Ur Leukocyte Esterase Negative, Urine RBC 3-5, Urine WBC None, Ur Squamous Epith Cells Occasional, Urine Bacteria Trace 08/08/23 16:18: WBC 14.4 H, RBC 5.98, Hgb 17.7, Hct 55.9 H, MCV 93.5, MCH 29.7, MCHC 31.7 L, RDW 16.3, Plt Count 257, MPV 8.9, Neut % (Auto) 93.7 H, Lymph % (Auto) 3.2 L, [place] % (Auto) 2.5, Eos % (Auto) 0.2, Baso % (Auto) 0.4, Neut # (Auto) 13.5 H, Lymph # (Auto) 0.5 L, [place] # (Auto) 0.4, Eos # (Auto) 0.0, Baso # (Auto) 0.1, Total Counted 100, Neutrophils % (Manual) 90 H, Lymphocytes % (Manual) 9 L, Monocytes % (Manual) 1 L, Platelet Estimate Normal, RBC Morphology Normal, Sodium 148 H, Potassium 5.3 H, Chloride 112 H, Carbon Dioxide 19 L, Anion Gap 22.3 H, BUN 62 H, Creatinine 1.10, Estimated Creat Clear 46, Estimated GFR 64, Est GFR ( Amer) 78, Glucose 140 H, Calcium 9.8, Total Bilirubin 2.5 H, AST 151 H, ALT 90 H, Alkaline Phosphatase 121, Total Creatine Kinase 2352 H*, Troponin I 0.06 H, Total Protein 9.4 H, Albumin 4.4, Globulin 5.0 H, Albumin/Globulin Ratio 0.9 L, TSH 21.20 H, Free T4 0.90 08/08/23 16:31: Plasma/Serum Alcohol < 10, Acetone Level None detected 08/08/23 19:08: Troponin I 0.07 H 08/08/23 21:00: Lactate 3.5 H 08/08/23 21:35: Ammonia < 9 L, Troponin I 0.07 H 08/08/23 22:05: POC Glucose 120 H I & O for Last 24 hours: Intake & Output 08/05/23 08/06/23 08/07/23 08/08/23 23:59 23:59 23:59 23:59 Intake Total 2350 / 2350 Output Total 1500 / 1500 Balance 850 / 850 Weight 62.46 kg Constitutional Constitutional: no acute distress and chronically ill appearing *Routine HEENT Exam Head: Present normocephalic and atraumatic Eye: Present EOMI ENT: Present mucous membranes dry *Routine Neck Exam Neck: Present supple and full ROM *Routine Respiratory Exam Respiratory: Present crackles (RLL) and normal respiratory effort *Routine Cardiovascular Exam Cardiovascular: Present RRR, Normal S1 and Normal S2 *Routine Abdominal Exam Abdominal: Present soft and normoactive bowel sounds *Routine Rectal Exam Rectal:: deferred *Routine Genitalia Exam Genitalia:: deferred *Routine Extremities Exam Extremities: Present full ROM, pulses intact and normal capillary refill *Routine Skin Exam Comments: Deep tissue injury to coccyx/sacrum. Ecchymosis noted to the right lateral chest *Routine Neurological Exam Neurological: Present CN II-XII intact Comments: Nonbillable but will shake head when asked his name. Does reach for blankets when removed from him for physical assessment. Will move upper and lower extremities spontaneously Detailed Neurological Exam Brainstem reflexes: present: corneal reflex and present: gag reflex Assessment and Plan *Assessment and plan (1) Severe sepsis with acute organ dysfunction: Status: Acute Category: Medical Code(s): A41.9 - Sepsis, unspecified organism; R65.20 - Severe sepsis without septic shock (2) Encephalopathy, metabolic: Status: Acute Category: Medical Code(s): G93.41 - Metabolic encephalopathy (3) Acute cystitis: Status: Acute Qualifiers: Hematuria presence: without hematuria Qualified Code(s): N30.00 - Acute cystitis without hematuria Category: Medical Code(s): N30.00 - Acute cystitis without hematuria (4) Hypothyroid: Status: Acute Qualifiers: Hypothyroidism type: acquired Qualified Code(s): E03.9 - Hypothyroidism, unspecified Category: Medical Code(s): E03.9 - Hypothyroidism, unspecified (5) Pneumonia: Status: Acute Qualifiers: Laterality: right Lung location: lower lobe of lung Pneumonia type: due to unspecified organism Qualified Code(s): J18.9 - Pneumonia, unspecified organism Category: Medical Code(s): J18.9 - Pneumonia, unspecified organism (6) Fracture of rib of right side: Status: Acute Qualifiers: Encounter type: initial encounter Fracture type: closed Rib fracture type: multiple ribs Qualified Code(s): S22.41XA - Multiple fractures of ribs, right side, initial encounter for closed fracture Category: Medical Code(s): S22.31XA - Fracture of one rib, right side, initial encounter for closed fracture (7) Rhabdomyolysis: Status: Acute Qualifiers: Encounter type: initial encounter Rhabdomyolysis type: traumatic Qualified Code(s): T79.6XXA - Traumatic ischemia of muscle, initial encounter Category: Medical Code(s): M62.82 - Rhabdomyolysis (8) Transaminitis: Status: Acute Category: Medical Code(s): R74.01 - Elevation of levels of liver transaminase levels (9) NSTEMI (non-ST elevated myocardial infarction): Status: Acute Category: Medical Code(s): I21.4 - Non-ST elevation (NSTEMI) myocardial infarction Plan #Severe sepsis with organ dysfunction Meets criteria for leukocytosis, tachycardia, lactic acidosis, elevated troponin with right lower lobe pneumonia Received 30 mL/kg of normal saline in emergency department Repeat lactic acid improved to 3.5 Blood cultures obtained prior to broad-spectrum antibiotic coverage Continue Vanco and cefepime Legionella, MRSA and sputum culture pending #Metabolic encephalopathy Unknown baseline, no family at bedside to provide collateral Likely secondary to acute infection. May be element severe hypothyroidism causing myexadema coma like symptoms Some improvement in mental status noted after admission. Patient opening eyes to verbal stimuli and shaking his head yes and no spoken to. Reorient as needed #Pneumonia #Right rib fractures Pneumonia likely sympathetic to right rib fractures given location Currently oxygenating well on room air Sputum culture pending Blood cultures pending Continue broad-spectrum antibiotic coverage #Anion Gap Acidosis likely secondary to dehydration, sepsis and trauma Continue MIVF Renal funciton stable #Traumatic rhabdomyolysis #Transaminitis CPK of 2300. Likely patient had fall resulting in right rib fractures and was found down after approximately 2 days Liver enzymes likely secondary to hepatic congestion given muscle breakdown with rhabdomyolysis Continue aggressive hydration Adames catheter for strict intake and output Repeat CPK in a.m. Repeat CMP in a.m. # Hypothyroidism Patient with known hypothyroidism with a TSH today of 21 Patient received 200 mcg of levothyroxine IV on admission Continue 100 mcg IV daily, transition to oral once able to take p.o. Patient still lethargic but will open eyes to verbal stimuli and shake head yes and no to some questions. Mental status seems to be slowly improving Vital signs stable. No bradycardia noted. No hypertension noted. Respiratory rate even and unlabored. Oxygenating well on room air Glucose within normal limits #Acute cystitis Urinalysis with only nitrite positive but given patient's altered mental status will continue antibiotics. Currently on broad-spectrum antibiotics #Drug therapeutic monitoring Will need pharmacy consult for vancomycin #T2DM Reported, but does not take any medications on home medicine list Will continue glucose checks given hypothyroidism #NSTEMI DVT PPx Lovenox Full code No family or contact information for collateral
[2023-08-08 23:34] LABS: Lactic Acid Follow up (RFLX 2) 2.9 mmol/L (0.7-2.1)
--- NOTE | 2023-08-08 23:56 | PC.WOUNDNOTE ---
Skin assessment upon admission
[2023-08-09] VITALS (23 sets, daily range): BP systolic 88–118; BP diastolic 50–73; PULSE 70–96; RESP 12–20; TEMP 36.7–37.2; O2SAT 95–100; BMI 18.7
[2023-08-09] MEDS: SODIUM CHLORIDE 3% 15ML NEB 3 ML IH (00:46)
[2023-08-09 00:52] LABS: Lactic Acid 2.7 mmol/L (0.7-2.1)
[2023-08-09 02:56] LABS: Troponin I 0.07 ng/ml (0.00-0.034)
[2023-08-09] MEDS: DOXYCYCLINE HYCLATE 100 MG in 0.9 % SODIUM CHLORIDE 250 ML 166.667000000000002 MG IV ×2 (04:29→17:01)
[2023-08-09] MEDS: 0.9 % SODIUM CHLORIDE 1000ML 1,000 ML 150 ML IV ×2 (05:17→12:25)
[2023-08-09] MEDS: LEVOTHYROXINE SODIUM 100 MCG VIAL IV (06:25)
[2023-08-09 06:33] LABS: Basophils % 0.2 % (0.1-2.0); Eosinophils % 0.1 % (0.1-12.0); Hematocrit 44.5 % (42.0-52.0); Lymphocytes # 0.5 K/mm3 (0.7-4.5); Lymphocytes % 4.4 % (10-50); Mean Corpuscular HGB Conc 32.4 g/dL (31.8-35.4); Mean Corpuscular Volume 92.7 fl (80-94); Mean Platelet Volume 9.2 fl (7.4-10.4); Monocytes # 0.3 K/mm3 (0.1-1.0); Neutrophils # 9.7 K/mm3 (1.8-7.8); Neutrophils % 92.3 % (37.0-80.0); Platelet Count 195 K/mm3 (142-424); Red Cell Distribution Width 16.3 % (11.5-17.5); White Blood Count 10.5 K/mm3 (4.8-10.8)
[2023-08-09 06:51] LABS: POC Glucose,Bedside 101 (70-110)
[2023-08-09 06:52] LABS: Hemoglobin 14.4 g/dL (14.1-18.0); MANUAL DIFFERENTIAL MANUAL DIFFERENTIAL (MANUAL DIFF)
[2023-08-09 07:05] LABS: Alanine Aminotransferase 62 U/L (12-78); Albumin Level 2.9 g/dl (3.5-5.0); Albumin/Globulin Ratio 0.9 (1.1-1.8); Alkaline Phosphatase 113 U/L (38-126); Anion Gap 12.5 mEq/L (5-15); Aspartate Amino Transferase 103 U/L (17-59); Bilirubin,Total 1.1 mg/dl (0.2-1.3); Blood Urea Nitrogen 39 mg/dl (9-20); Calcium 8.1 mg/dl (8.4-10.2); Carbon Dioxide 23 mmol/L (22.0-30.0); Chloride 117 mmol/L (98-107); Creatine Kinase 1176 U/L (55-170); Creatinine Clearance Estimated 51 mL/min (50-200); Estimated Glomerular Filt Rate 108 ml/min (>60); GFR (African American) 131 ML/MIN (>60); Globulin 3.2 g/dL (1.3-3.2); Glucose 105 mg/dl (74-100); Potassium 3.5 mmoL/L (3.5-5.1); Sodium 149 mmol/L (136-145); Total Protein,Serum 6.1 g/dl (6.3-8.2)
[2023-08-09 08:19] LABS: Eosinophils % 1 % (0-3); Lymphocytes % 4 % (10-50); Monocytes % 4 % (2-9); Neutrophils % 75 % (42-76); Total Cells Counted 100
[2023-08-09 08:20] LABS: Anisocytosis 1+; Platelet Estimate Normal
[2023-08-09 08:21] LABS: Burr Cells 1+
[2023-08-09 08:23] LABS: Hypochromasia 1+; Poikilocytosis 1+
--- NOTE | 2023-08-09 08:27 | P.CONPHA_ITS ---
Pharmacy Consult Date: 08/09/23 Time: 08:27 Referring provider: DR. ROBERTSON Reason for Consult:: VANCOMYCIN DOSING Allergies Allergy/AdvReac Type Severity Reaction Status Date / Time Bactrim DS Allergy Uncoded 05/28/19 12:42 Home Medications Medication Instructions Recorded Confirmed Type gabapentin 100 mg capsule 100 mg PO TIDP PRN Shingles Pain 08/08/23 08/08/23 History levothyroxine 100 mcg tablet 100 mcg PO DAILY 08/08/23 08/08/23 History New Prescriptions to Start Prescriptions: Height: 1.83 m Weight: 62.777 kg Laboratory Results:: Laboratory Results - last 24 hr 08/08/23 16:12: VBG pH 7.43 H, VBG pCO2 31.8 L, VBG pO2 47.0 H, VBG HCO3 20.5 L, VBG Total CO2 21.5 L, VBG O2 Saturation 84.9 H, VBG Base Excess -3.9 L, VBG Lactic Acid 4.8 H 08/08/23 16:15: Urine Color Halle, Urine Appearance Clear, Urine pH 6.5, Ur S pecific [place] 1.025, Urine Protein 1+, Urine Glucose (UA) Negative, Urine Ketones 1+, Urine Blood Trace-i, Urine Nitrate Positive, Urine Bilirubin 3+ A, Urine Urobilinogen >=8.0, Ur Leukocyte Esterase Negative, Urine RBC 3-5, Urine WBC None, Ur Squamous Epith Cells Occasional, Urine Bacteria Trace 08/08/23 16:18: WBC 14.4 H, RBC 5.98, Hgb 17.7, Hct 55.9 H, MCV 93.5, MCH 29.7, MCHC 31.7 L, RDW 16.3, Plt Count 257, MPV 8.9, Neut % (Auto) 93.7 H, Lymph % (Auto) 3.2 L, [place] % (Auto) 2.5, Eos % (Auto) 0.2, Baso % (Auto) 0.4, Neut # (Auto) 13.5 H, Lymph # (Auto) 0.5 L, [place] # (Auto) 0.4, Eos # (Auto) 0.0, Baso # (Auto) 0.1, Total Counted 100, Neutrophils % (Manual) 90 H, Lymphocytes % (Manual) 9 L, Monocytes % (Manual) 1 L, Platelet Estimate Normal, RBC Morphology Normal, Sodium 148 H, Potassium 5.3 H, Chloride 112 H, Carbon Dioxide 19 L, Anion Gap 22.3 H, BUN 62 H, Creatinine 1.10, Estimated Creat Clear 46, Estimated GFR 64, Est GFR ( Amer) 78, Glucose 140 H, Calcium 9.8, Total Bilirubin 2.5 H, AST 151 H, ALT 90 H, Alkaline Phosphatase 121, Total Creatine Kinase 2352 H*, Troponin I 0.06 H, Total Protein 9.4 H, Albumin 4.4, Globulin 5.0 H, Albumin/Globulin Ratio 0.9 L, TSH 21.20 H, Free T4 0.90 08/08/23 16:31: Plasma/Serum Alcohol < 10, Acetone Level None detected 08/08/23 19:08: Troponin I 0.07 H 08/08/23 21:00: Lactate 3.5 H 08/08/23 21:35: Ammonia < 9 L, Troponin I 0.07 H 08/08/23 22:05: POC Glucose 120 H 08/08/23 23:13: Lactate 2.9 H 08/09/23 00:33: Lactate 2.7 H 08/09/23 02:15: Troponin I 0.07 H 08/09/23 05:39: WBC 10.5 D, RBC 4.80, Hgb 14.4 D, Hct 44.5, MCV 92.7, MCH 30.0, MCHC 32.4, RDW 16.3, Plt Count 195, MPV 9.2, Neut % (Auto) 92.3 H, Lymph % (Auto) 4.4 L, [place] % (Auto) 3.0, Eos % (Auto) 0.1, Baso % (Auto) 0.2, Neut # (Auto) 9.7 H, Lymph # (Auto) 0.5 L, [place] # (Auto) 0.3, Eos # (Auto) 0.0, Baso # (Auto) 0.0, Total Counted 100, Neutrophils % (Manual) 75, Band Neutrophils % 16.0 H, Lymphocytes % (Manual) 4 L, Monocytes % (Manual) 4, Eosinophils % (Manual) 1, Platelet Estimate Normal, RBC Morphology Not Reportable, Hypochromasia 1+, Poikilocytosis 1+, Anisocytosis 1+, Umer Cells 1+, Sodium 149 H, Potassium 3.5 D, Chloride 117 H, Carbon Dioxide 23, Anion Gap 12.5, BUN 39 H D, Creatinine 0.70 D, Estimated Creat Clear 51, Estimated GFR 108, Est GFR ( Amer) 131 D, Glucose 105 H D, Calcium 8.1 L, Magnesium 2.0, Total Bilirubin 1.1, AST 103 H D, ALT 62 D, Alkaline Phosphatase 113, Total Creatine Kinase 1176 H* D, Total Protein 6.1 L D, Albumin 2.9 L D, Globulin 3.2, Albumin/Globulin Ratio 0.9 L 08/09/23 06:44: POC Glucose 101 Medical History: Medical History (Updated 08/08/23 @ 23:48 by Aixa Boogie [facility]Gregory) Shingles Shingles (herpes zoster) polyneuropathy Diabetes Hypothyroid Assessment and Plan Assessment and plan all Dx Assessment and Plan for all problems:: Pharmacokinetic dosing service Objective: Patient: Floor: Age: 83 yo Serum creatinine: 1 mg/dL Height: 72.0 Inches Weight (kg): 63 Assessment: IBW (kg): 77.60 Dosing wt(kg): 63 Estimated Creatinine clearance (ml/min): 50.8 CRCL method: Cockcroft and Gault using ibw(default). Drug selected: Vancomycin Loading dose (mg): 0 Vd (liters): 50.4 (factor used: 0.8 L/kg) Tad (hr-1): 0.047 Half life (hrs): 14.75 Recommended dose: 1250 mg Interval: 24 hrs Infusion time (hrs): 2.0 Predicted peak (mcg/mL): 35.0 Predicted trough (mcg/mL): 12.45 Total body weight is being used for vancomycin dosing. Recommendations: Give Vancomycin 1250 mg q 24 hrs with an expected Cpeak of 35.0 mcg/ml and an expected Ctrough of 12.45 mcg/ml ----Vanco only - ignore for aminoglycosides----- CLvanco= 2.37 L/hr AUC 0-24 /ROMMEL Data: ROMMEL 0.5 mcg/mL: AUC/ROMMEL: 1054.9 ROMMEL 1.0 mcg/mL: AUC/ROMMEL: 527.4 --------- ROMMEL 1.5 mcg/mL: AUC/ROMMEL: 351.6 ROMMEL 2.0 mcg/mL: AUC/ROMMEL: 263.7
[2023-08-09] MEDS: CEFEPIME HCL 2 GM in 0.9 % SODIUM CHLORIDE 100 ML IV ×2 (08:55→20:36)
[2023-08-09] MEDS: ENOXAPARIN 40MG/0.4ML SYRINGE 40 MG SQ (08:55)
--- NOTE | 2023-08-09 09:55 | HMH.PHAINT1 ---
Pharmacy Intervention Comments: MEDICATION RECONCILIATION COMPLETED ON PATIENT USING EXTERNAL FILL HISTORY FROM PHARMACY. -ALVA SMALLWOOD, ANNEMARIED
--- NOTE | 2023-08-09 10:00 | HMH.PTEV ---
Physical Therapy Evaluation Rehab PT IP Evaluation Start: 08/08/23 18:25 Freq: ONCE Status: Active Protocol: Document 08/09/23 09:53 ROBBI (Rec: 08/09/23 10:00 ROBBI [id number]) Subjective/History History History Per H&P: This is an 83-year-old male with past medical history of diabetes and hypothyroidism who presents to the emergency department for altered mental status. Information surrounding patient unable to be obtained secondary to patient's mental status at this time. Does not appear to have much medical history other than hypothyroidism. Does follow in the outpatient setting with podiatry but no other documentation to aid in collateral. No family at bedside. Subjective Subjective Pt non-verbal. Confirm history with CM. New diagnosis of cancer in past 12 No months? Rehab PT IP Eval Objective Appearance Difficulty following instructions none Ambulation Patient Able to Ambulate No Balance Ability to Arise Unable Transfers Bed Transfer Ability Maximum x 2 (75% assist) Rehab PT IP prob,goals,plan Problems Date of Evaluation: 08/09/23 PT IP Problems Bed Mobility,Transfers,Gait, Balance,Self care,Safety Rehab Potential Rehab Potential Fair Equipment Needs Assistive Devices None / NA Plan PT Intervention Plan Bed Mobility,Transfers,Gait, Balance,Self care,Safety, Therapeutic Exercise Other Intervention Plan 1-2 times PT Plan Frequency Daily Duration LOS Discharge Goals Bed Transfer Ability Maximum x 1 (75% assist) Sit to Stand Chair Transfer Ability Maximum x 2 (75% assist) Discharge Plan PT Discharge Plan Initial physical therapy evaluation performed. Patient presents below baseline at this time in functional mobility, transfers, and strength. Pt not safe to return home at this time d/t current level of functional mobility. PT recommending short-term rehabilitation stay upon d/c from [facility]. Pt would benefit from skilled PT while at [facility] to prevent further functional decline and maximize safety with mobility. Eval Complexity Eval Charge Codes 07228 - High Complexity PHYSICIAN CERTIFICATION: I certify the specified therapy services for Robert Smiley Kenrick are required, authorized, and reviewed every 30 days.
--- NOTE | 2023-08-09 10:04 | HMH.OTEV ---
OT Inpatient Evaluation Rehab OT IP Evaluation Start: 08/08/23 18:25 Freq: ONCE Status: Active Protocol: Document 08/09/23 09:45 ADALBERTO (Rec: 08/09/23 10:04 ADALBERTO [id number]) Rehab OT IP Assessment Subjective History This is an 83-year-old male with past medical history of diabetes and hypothyroidism who presents to the emergency department for altered mental status. Information surrounding patient unable to be obtained secondary to patient's mental status at this time. Does not appear to have much medical history other than hypothyroidism. Does follow in the outpatient setting with podiatry but no other documentation to aid in collateral. No family at bedside. Patient was apparently found by a neighbor who had not seen him in several days. When neighbor found him, he was unresponsive. At the time of patient's arrival to the emergency department via EMS, he was noted to have stable blood pressure and glucose, requiring 2 L nasal cannula for hypoxia but otherwise stable. Emergency department workup notable for blood blood cell 14, VBG showing AHI 7.4, lactic acid of 4.8, potassium of 5.3 with anion gap of 22. Creatinine 1.1. CK of 2352, mildly elevated troponin at 0. 04. TSH of 21 with a free T4 of 0.9. Urinalysis positive for nitrates but otherwise negative. CT scan of the abdomen and chest notable for right lower lobe pneumonia with subsequent acute 11th and 12th rib fractures. He is also noted to have elevated AST and ALT, with a T bilirubin of 2.5. Given patient's encephalopathy and likely septic pneumonia with rhabdomyolysis, he will be admitted to the hospital service for further evaluation management. Subjective Patient did not speak during initial evaluation. Instructed Patient on proper hand and foot placement to complete bed mobility from supine->sit @ EOB with Max A x2. Patient required max A to sit @ EOB this date up to 2-3 mins. Patient able to follow simple 1 step commands 50% of time when asked, Can you move your toes? Can you look up? Patient unable to move finger on command. Objective Patient Orientation Person,Name,Age,Birthday,Year Right Upper Extremity Gross ROM WFL Left Upper Extremity Gross ROM WFL Bed Mobility bed mobility - supine/sit Assist Level Maximum x 2 (75% assist) Lower Body Dressing Ability Unable/dependent Upper Body Dressing Ability Unable/dependent Rehab OT IP prob,goals,plan Problems Date of Evaluation: 08/09/23 OT IP Problems Bed Mobility,Transfers,Balance ,Self care,Safety Rehab Potential Rehab Potential Good Equipment Needs Assistive Devices Rolling / Wheeled Walker Plan OT intervention Plan Bed Mobility,Transfers,Balance ,Self care,Safety,Therapeutic Exercise OT Plan Frequency Daily Duration LOS Discharge Goals Bed Mobility Ability Assistance x2 Discharge Plan OT Discharge Plan Recommend placement at this time. Patient unable to provide for self indepedently. will continue to assist patient as needed til proper placement. Eval Complexity Eval Charge Codes 51315 - Low Complexity PHYSICIAN CERTIFICATION: I certify the specified therapy services for Robert Smiley Kenrick are required, authorized, and reviewed every 30 days.
--- NOTE | 2023-08-09 10:51 | CA_ITS ---
APPROVED REPORT EXAM: Comprehensive 2D, Doppler, and color-flow Echocardiogram Legal Paraprofessional: Chantal Mcbride RVT Ht: 6 ft 0 in Wt: 138lbs BSA: 1.82 BP: 98/62 mmHg Indications: AMS,DM,SEPTIC SHOCK,PNEUMONIA TDS-PT UNRESPONSIVE LAYING ON BACK,BEST WINDOWS POSSIBLE 2D Dimensions IVSd 0.88 cm M: 0.6-1.2 LVEF (Visual) 65.90 % PWd 0.62 cm M: 0.6 - 1.2 LVDd 3.34 cm M: 4.2 - 5.9 LVDs 2.16 cm M: 2.5 - 4.0 M-Mode Dimensions LA Diam 2.17 cm (1.9-4.0) LV Diastology E Decel Time 150 (160-240 msec) E/A Ratio 1.3 Aortic Valve AO Peak GR. 5.30 mmHg Mitral Valve MV E Max Poli. 75.0 (40-130 cm/s) MV A Velocity 57.0 (40-130 cm/s) E/A Ratio 1.32 MV PHT 44.0 ms Pulmonary Valve PV Peak Velocity 85.0 (50-150 cm/s) Tricuspid Valve TR P. Velocity 252.00 cm/s RAP Estimate 10.00 mmHg RVSP 35.40 mmHg Left Ventricle The left ventricle is normal size. The left ventricular systolic function is normal. The left ventricular ejection fraction is within the normal range. There is increased LV wall thickness. The septum is asynchronous. The left ventricular diastolic function is normal. LVEF is 55%. Right Ventricle The right ventricle is mildly dilated. The right ventricular systolic function is normal. Atria The left atrium size is normal. The right atrium size is normal. There is no Doppler evidence of interatrial shunt. Aortic Valve The aortic valve is mildly thickened. There is no aortic valvular stenosis. Trace aortic regurgitation. Mitral Valve The mitral valve leaflets are mildly thickened. Trace mitral regurgitation. No evidence of mitral valve stenosis. Tricuspid Valve The tricuspid valve leaflets are thin and pliable. Mild tricuspid regurgitation. RVSP is 30???35 mmHg. Pulmonic Valve The pulmonary valve is not well-visualized. Great Vessels The aortic root is normal in size. The ascending aorta is mildly dilated, measuring 3.9 cm in diameter. IVC is normal in size and collapses >50% with inspiration. Pericardium There is a small sized, anterior pericardial effusion present, measuring 0.4 cm in its largest pocket in diastole. The effusion echogenicity appears heterogeneous. No echo indications of tamponade. Other Information Study Quality: Fair Conclusion Normal LV systolic function. Mild RV dilation with normal RV systolic function. Mild TR. RVSP 30-35 mmHg. Small sized, anterior pericardial effusion present, measuring 0.4 cm in its largest pocket in diastole. The effusion echogenicity appears heterogeneous. No echo indications of tamponade. In the setting of small anterior pericardial effusion, serial TTE's are recommended to evaluate for progression. Electronically signed by : Anupama Delarosa MD 08/11/2023 13:50:39
--- NOTE | 2023-08-09 11:54 | SW/DCPLANNER ---
Addendum entered by [facility] 08/18/23 10:42: Patient will discharge to [facility] level of care w/ Hospice to admit once he arrives to facility. Addendum entered by [facility] 08/17/23 15:04: Elvi stated that once patient discharges to [facility] he will be admitted to their services. Per Dr Pineda patient is planned to discharge tomorrow morning. Addendum entered by [facility] 08/17/23 13:32: Elvi w/ Hospice will be onsite to evaluate patient today. Addendum entered by [facility] 08/17/23 12:41: Guille has called back and stated that he is agreeable to pursue Hospice. I will follow up w/ Zoe at [facility] once information is reviewed. Violet rae/ Valery Petit stated that she can accept this patient under Hospice as well. Addendum entered by [facility] 08/17/23 11:34: stated that due to little/no improvement we will approach Hospice again w/ patient and family. I attempted to call Guille x2 no answer at this time VM left. Addendum entered by [facility] 08/16/23 12:18: Violet rae/ Valery Petit stated that she can accept this patient once medically stable for discharge. Discharge date is unknown at this time. Addendum entered by [facility] 08/16/23 08:51: I spoke w/ patient's brother Guille this AM regarding discharge plans. Patient has shown improvement and is able to work w/ PT at this time. I have updated Guille that we could start looking into placement for this patient. Guille is agreeable to placement, willing to assist w/ paperwork and prefer information be faxed to [facility] and [place]. I will fax information to both facilities and continue to follow up. Discharge date is unknown at this time. Original Note: Patient is not able to communicate at this time. I did call Rachele Soto to confirm I can look up his brother's phone number (Guille). Guille answered and stated that he does not have the best relationship w/ patient but is willing to assist w/ decision making if needed. I will inform patient's nurse (Olivia) of Guille's contact information. I will continue to follow up w/ Guille regarding discharge plans. [place] [phone]
[2023-08-09 12:19] LABS: POC Glucose,Bedside 96 (70-110)
--- NOTE | 2023-08-09 13:10 | PC.NURSE ---
1310 attempted to call pt brother, call went straight to voicemail.
--- NOTE | 2023-08-09 13:38 | EXP.CARD.CON ---
History of Present Illness History of Present Illness Consult date: 08/09/23 Requesting physician: Aixa Boogie Chief complaint: AMS History of present illness: 83-year-old white male without known cardiovascular disease was brought in by EMS after being found down by neighbor with altered mental status. Workup in the ER revealed right rib fractures with associated pneumonia sepsis and rhabdomyolysis with a CK greater than 2000. We are consulted for elevated troponin. He had a series of 4 troponins checked which were all 0.07. EKG shows sinus rhythm without ischemia. Patient remains altered and unresponsive. No family bedside, staff is working on this. [facility] Disclaimer: The information contained in this section may have been updated after the patient was seen, as this information can be updated by other users. Medical History Shingles Shingles (herpes zoster) polyneuropathy Diabetes Hypothyroid Social History Smoking Status: Unknown if ever smoked alcohol intake: never substance use type: denies use current occupational status: retired Travel in the last 8 weeks: None household members: spouse and family housing: house Review of Systems Review of Systems Review of systems:: unable to obtain Exam Data for Last 24 hours Vital signs and Labs for Last 24 Hours: Temp Pulse Resp BP Pulse Ox O2 Del Method O2 Flow Rate 98.5 F 79 19 88/53 L 100 Room Air 1 08/09/23 08:00 08/09/23 12:00 08/09/23 12:00 08/09/23 12:00 08/09/23 12:00 08/09/23 12:00 08/09/23 04:00 Laboratory Results - last 24 hr 08/08/23 16:12: VBG pH 7.43 H, VBG pCO2 31.8 L, VBG pO2 47.0 H, VBG HCO3 20.5 L, VBG Total CO2 21.5 L, VBG O2 Saturation 84.9 H, VBG Base Excess -3.9 L, VBG Lactic Acid 4.8 H 08/08/23 16:15: Urine Color Halle, Urine Appearance Clear, Urine pH 6.5, Ur Specific [place] 1.025, Urine Protein 1+, Urine Glucose (UA) Negative, Urine Ketones 1+, Urine Blood Trace-i, Urine Nitrate Positive, Urine Bilirubin 3+ A, Urine Urobilinogen >=8.0, Ur Leukocyte Esterase Negative, Urine RBC 3-5, Urine WBC None, Ur Squamous Epith Cells Occasional, Urine Bacteria Trace 08/08/23 16:18: WBC 14.4 H, RBC 5.98, Hgb 17.7, Hct 55.9 H, MCV 93.5, MCH 29.7, MCHC 31.7 L, RDW 16.3, Plt Count 257, MPV 8.9, Neut % (Auto) 93.7 H, Lymph % (Auto) 3.2 L, [place] % (Auto) 2.5, Eos % (Auto) 0.2, Baso % (Auto) 0.4, Neut # (Auto) 13.5 H, Lymph # (Auto) 0.5 L, [place] # (Auto) 0.4, Eos # (Auto) 0.0, Baso # (Auto) 0.1, Total Counted 100, Neutrophils % (Manual) 90 H, Lymphocytes % (Manual) 9 L, Monocytes % (Manual) 1 L, Platelet Estimate Normal, RBC Morphology Normal, Sodium 148 H, Potassium 5.3 H, Chloride 112 H, Carbon Dioxide 19 L, Anion Gap 22.3 H, BUN 62 H, Creatinine 1.10, Estimated Creat Clear 46, Estimated GFR 64, Est GFR ( Amer) 78, Glucose 140 H, Calcium 9.8, Total Bilirubin 2.5 H, AST 151 H, ALT 90 H, Alkaline Phosphatase 121, Total Creatine Kinase 2352 H*, Troponin I 0.06 H, Total Protein 9.4 H, Albumin 4.4, Globulin 5.0 H, Albumin/Globulin Ratio 0.9 L, TSH 21.20 H, Free T4 0.90 08/08/23 16:31: Plasma/Serum Alcohol < 10, Acetone Level None detected 08/08/23 19:08: Troponin I 0.07 H 08/08/23 21:00: Lactate 3.5 H 08/08/23 21:35: Ammonia < 9 L, Troponin I 0.07 H 08/08/23 22:05: POC Glucose 120 H 08/08/23 23:13: Lactate 2.9 H 08/09/23 00:33: Lactate 2.7 H 08/09/23 02:15: Troponin I 0.07 H 08/09/23 05:39: WBC 10.5 D, RBC 4.80, Hgb 14.4 D, Hct 44.5, MCV 92.7, MCH 30.0, MCHC 32.4, RDW 16.3, Plt Count 195, MPV 9.2, Neut % (Auto) 92.3 H, Lymph % (Auto) 4.4 L, [place] % (Auto) 3.0, Eos % (Auto) 0.1, Baso % (Auto) 0.2, Neut # (Auto) 9.7 H, Lymph # (Auto) 0.5 L, [place] # (Auto) 0.3, Eos # (Auto) 0.0, Baso # (Auto) 0.0, Total Counted 100, Neutrophils % (Manual) 75, Band Neutrophils % 16.0 H, Lymphocytes % (Manual) 4 L, Monocytes % (Manual) 4, Eosinophils % (Manual) 1, Platelet Estimate Normal, RBC Morphology Not Reportable, Hypochromasia 1+, Poikilocytosis 1+, Anisocytosis 1+, [place] Cells 1+, Sodium 149 H, Potassium 3.5 D, Chloride 117 H, Carbon Dioxide 23, Anion Gap 12.5, BUN 39 H D, Creatinine 0.70 D, Estimated Creat Clear 51, Estimated GFR 108, Est GFR ( Amer) 131 D, Glucose 105 H D, Calcium 8.1 L, Magnesium 2.0, Total Bilirubin 1.1, AST 103 H D, ALT 62 D, Alkaline Phosphatase 113, Total Creatine Kinase 1176 H* D, Total Protein 6.1 L D, Albumin 2.9 L D, Globulin 3.2, Albumin/Globulin Ratio 0.9 L 08/09/23 06:44: POC Glucose 101 08/09/23 12:10: POC Glucose 96 I & O for Last 24 hours: Intake & Output 08/06/23 08/07/23 08/08/23 08/09/23 23:59 23:59 23:59 23:59 Intake Total 2350 / 2350 2230 / 2230 Output Total 1500 / 1500 1490 / 1490 Balance 850 / 850 740 / 740 Weight 137 lb 9 oz 138 lb 6.4 oz Microbiology Reports for the Last 24 Hours: Microbiology 08/08/23 17:00 Blood Blood Culture - Preliminary Constitutional Constitutional: obtunded *Routine HEENT Exam Eye: Present PERRL *Routine Respiratory Exam Respiratory: Present CTA bilaterally; Absent accessory muscle use, wheezes or crackles *Routine Cardiovascular Exam Cardiovascular: Present RRR, Normal S1 and Normal S2; Absent murmur, gallop or rubs *Routine Abdominal Exam Abdominal: Present soft *Routine Extremities Exam Extremities: Present pulses intact; Absent cyanosis or edema *Routine Skin Exam Skin: Present intact; Absent erythema or wounds *Routine Neurological Exam Neurological: Present altered mental status Meds Home Medications and Allergies Home Medications Medication Instructions Recorded Confirmed Type gabapentin 100 mg capsule 100 mg PO TIDP PRN Shingles Pain 08/08/23 08/08/23 History levothyroxine 100 mcg tablet 100 mcg PO DAILY 08/08/23 08/08/23 History New Prescriptions to Start Prescriptions: Allergies Allergy/AdvReac Type Severity Reaction Status Date / Time sulfamethoxazole Allergy Unknown Unknown Verified 08/09/23 10:21 [From Bactrim] allergy reaction trimethoprim [From Bactrim] Allergy Unknown Unknown Verified 08/09/23 10:21 allergy reaction Assessment and Plan *Assessment and plan (1) Elevated troponin: Status: Acute Category: Medical Code(s): R79.89 - Other specified abnormal findings of blood chemistry (2) Rhabdomyolysis: Status: Acute Qualifiers: Rhabdomyolysis type: traumatic Encounter type: initial encounter Qualified Code(s): T79.6XXA - Traumatic ischemia of muscle, initial encounter Category: Medical Code(s): M62.82 - Rhabdomyolysis (3) Fracture of rib of right side: Status: Acute Qualifiers: Encounter type: initial encounter Rib fracture type: multiple ribs Fracture type: closed Qualified Code(s): S22.41XA - Multiple fractures of ribs, right side, initial encounter for closed fracture Category: Medical Code(s): S22.31XA - Fracture of one rib, right side, initial encounter for closed fracture (4) Acute cystitis: Status: Acute Qualifiers: Hematuria presence: without hematuria Qualified Code(s): N30.00 - Acute cystitis without hematuria Category: Medical Code(s): N30.00 - Acute cystitis without hematuria (5) Severe sepsis with acute organ dysfunction: Status: Acute Category: Medical Code(s): A41.9 - Sepsis, unspecified organism; R65.20 - Severe sepsis without septic shock (6) Encephalopathy, metabolic: Status: Acute Category: Medical Code(s): G93.41 - Metabolic encephalopathy Plan Elevated troponin -Mild flat troponin elevation in the setting of septic shock with rhabdomyolysis -Normal EKG -Will check 2D echo Septic shock, rhabdomyolysis, rib fracture, pneumonia -Complex clinical scenario, patient on broad-spectrum antibiotics Acute metabolic encephalopathy -Staff attempting to contact family
--- NOTE | 2023-08-09 13:49 | PC.NURSE ---
when turning pt at this time, pt was more verbally responsive to staff. when asked if pt was in pain he said no. when asked if he was hot, he said no . when asked if he was cold, pt again said no . frequent oral care is being provided to pt as he has thick coating of phlegm on his tongue and palate of his mouth.
--- NOTE | 2023-08-09 17:22 | P.PN_ITS ---
Subjective *Date: 08/09/23 *Time: 17:22 Interval history: seen at bedside, denied CP, SOB, N/V Exam Data for Last 24 hours Vital signs and Labs for Last 24 Hours: Temp Pulse Resp BP Pulse Ox O2 Del Method O2 Flow Rate 98.9 F 80 20 109/66 L 100 Room Air 1 08/09/23 15:38 08/09/23 16:00 08/09/23 15:38 08/09/23 15:38 08/09/23 15:38 08/09/23 15:38 08/09/23 04:00 Laboratory Results - last 24 hr 08/08/23 16:15: Urine Color [place], Urine Appearance Clear, Urine pH 6.5, Ur Specific [place] 1.025, Urine Protein 1+, Urine Glucose (UA) Negative, Urine Ketones 1+, Urine Blood Trace-i, Urine Nitrate Positive, Urine Bilirubin 3+ A, Urine Urobilinogen >=8.0, Ur Leukocyte Esterase Negative, Urine RBC 3-5, Urine WBC None, Ur Squamous Epith Cells Occasional, Urine Bacteria Trace 08/08/23 16:18: Total Counted 100, Neutrophils % (Manual) 90 H, Lymphocytes % (Manual) 9 L, Monocytes % (Manual) 1 L, Platelet Estimate Normal, RBC Morphology Normal 08/08/23 16:31: Plasma/Serum Alcohol < 10, Acetone Level None detected 08/08/23 19:08: Troponin I 0.07 H 08/08/23 21:00: Lactate 3.5 H 08/08/23 21:35: Ammonia < 9 L, Troponin I 0.07 H 08/08/23 22:05: POC Glucose 120 H 08/08/23 23:13: Lactate 2.9 H 08/09/23 00:33: Lactate 2.7 H 08/09/23 02:15: Troponin I 0.07 H 08/09/23 05:39: WBC 10.5 D, RBC 4.80, Hgb 14.4 D, Hct 44.5, MCV 92.7, MCH 30.0, MCHC 32.4, RDW 16.3, Plt Count 195, MPV 9.2, Neut % (Auto) 92.3 H, Lymph % (Auto) 4.4 L, [place] % (Auto) 3.0, Eos % (Auto) 0.1, Baso % (Auto) 0.2, Neut # (Auto) 9.7 H, Lymph # (Auto) 0.5 L, [place] # (Auto) 0.3, Eos # (Auto) 0.0, Baso # (Auto) 0.0, Total Counted 100, Neutrophils % (Manual) 75, Band Neutrophils % 16.0 H, Lymphocytes % (Manual) 4 L, Monocytes % (Manual) 4, Eosinophils % (Manual) 1, Platelet Estimate Normal, RBC Morphology Not Reportable, Hypochromasia 1+, Poikilocytosis 1+, Anisocytosis 1+, [place] Cells 1+, Sodium 149 H, Potassium 3.5 D, Chloride 117 H, Carbon Dioxide 23, Anion Gap 12.5, BUN 39 H D, Creatinine 0.70 D, Estimated Creat Clear 51, Estimated GFR 108, Est GFR ( Amer) 131 D, Glucose 105 H D, Calcium 8.1 L, Magnesium 2.0, Total Bilirubin 1.1, AST 103 H D, ALT 62 D, Alkaline Phosphatase 113, Total Creatine Kinase 1176 H* D, Total Protein 6.1 L D, Albumin 2.9 L D, Globulin 3.2, Albumin/Globulin Ratio 0.9 L 08/09/23 06:44: POC Glucose 101 08/09/23 12:10: POC Glucose 96 I & O for Last 24 hours: Intake & Output 08/06/23 08/07/23 08/08/23 08/09/23 23:59 23:59 23:59 23:59 Intake Total 2350 / 2350 2462 / 2462 Output Total 1500 / 1500 2115 / 2115 Balance 850 / 850 347 / 347 Weight 62.397 kg 62.777 kg Microbiology Reports for the Last 24 Hours: Microbiology 08/08/23 17:00 Blood Blood Culture - Preliminary Constitutional Constitutional: no acute distress *Routine HEENT Exam Head: Present normocephalic Eye: Present EOMI and PERRL ENT: Present mucous membranes moist *Routine Neck Exam Neck: Present supple; Absent lymphadenopathy *Routine Respiratory Exam Respiratory: Present CTA bilaterally *Routine Cardiovascular Exam Cardiovascular: Present RRR *Routine Abdominal Exam Abdominal: Present soft and normoactive bowel sounds; Absent tenderness *Routine Extremities Exam Extremities: Absent cyanosis, clubbing or edema *Routine Skin Exam Skin: Present warm; Absent rash *Routine Neurological Exam Neurological: Present alert and oriented X3 Assessment and Plan *Assessment and plan (1) Severe sepsis with acute organ dysfunction: Status: Acute Category: Medical Code(s): A41.9 - Sepsis, unspecified organism; R65.20 - Severe sepsis without septic shock (2) Encephalopathy, metabolic: Status: Acute Category: Medical Code(s): G93.41 - Metabolic encephalopathy (3) Acute cystitis: Status: Acute Qualifiers: Hematuria presence: without hematuria Qualified Code(s): N30.00 - Acute cystitis without hematuria Category: Medical Code(s): N30.00 - Acute cystitis without hematuria (4) Hypothyroid: Status: Acute Qualifiers: Hypothyroidism type: acquired Qualified Code(s): E03.9 - Hypothyroidism, unspecified Category: Medical Code(s): E03.9 - Hypothyroidism, unspecified (5) Pneumonia: Status: Acute Qualifiers: Pneumonia type: due to unspecified organism Laterality: right Lung location: lower lobe of lung Qualified Code(s): J18.9 - Pneumonia, unspecified organism Category: Medical Code(s): J18.9 - Pneumonia, unspecified organism (6) Fracture of rib of right side: Status: Acute Qualifiers: Encounter type: initial encounter Rib fracture type: multiple ribs Fracture type: closed Qualified Code(s): S22.41XA - Multiple fractures of ribs, right side, initial encounter for closed fracture Category: Medical Code(s): S22.31XA - Fracture of one rib, right side, initial encounter for closed fracture (7) Rhabdomyolysis: Status: Acute Qualifiers: Rhabdomyolysis type: traumatic Encounter type: initial encounter Qualified Code(s): T79.6XXA - Traumatic ischemia of muscle, initial encounter Category: Medical Code(s): M62.82 - Rhabdomyolysis (8) Transaminitis: Status: Acute Category: Medical Code(s): R74.01 - Elevation of levels of liver transaminase levels (9) NSTEMI (non-ST elevated myocardial infarction): Status: Acute Category: Medical Code(s): I21.4 - Non-ST elevation (NSTEMI) myocardial infarction Plan #Severe sepsis with organ dysfunction continue IV fluids, not requiring vasopresor support for now Blood cultures obtained prior to broad-spectrum antibiotic coverage Continue Vancomycin and cefepime Legionella, MRSA and sputum culture pending #Metabolic encephalopathy - improving Unknown baseline, no family at bedside to provide collateral Likely secondary to acute infection. May be element severe hypothyroidism causing myexadema coma like symptoms Some improvement in mental status noted after admission. Patient opening eyes to verbal stimuli and shaking his head yes and no spoken to. Reorient as needed #Pneumonia #Right rib fractures Pneumonia likely sympathetic to right rib fractures given location Currently oxygenating well on room air Sputum culture pending Blood cultures pending Continue broad-spectrum antibiotic coverage #Anion Gap Acidosis likely secondary to dehydration, sepsis and trauma Continue MIVF Renal funciton stable #Traumatic rhabdomyolysis #Transaminitis CPK of 2300. Likely patient had fall resulting in right rib fractures and was found down after approximately 2 days Liver enzymes likely secondary to hepatic congestion given muscle breakdown with rhabdomyolysis Continue aggressive hydration Adames catheter for strict intake and output monitor CK level # Hypothyroidism Patient with known hypothyroidism with a TSH today of 21 Patient received 200 mcg of levothyroxine IV on admission Continue 100 mcg IV daily, transition to oral once able to take p.o. #Acute cystitis Urinalysis with only nitrite positive but given patient's altered mental status will continue antibiotics. Currently on broad-spectrum antibiotics #T2DM ISS, monitor #NSTEMI DVT PPx Lovenox Full code No family or contact information for collateral continue IV abx and IV fluids, monitor CK level
[2023-08-09 17:35] LABS: POC Glucose,Bedside 79 (70-110)
--- NOTE | 2023-08-09 17:42 | PC.NURSE ---
TOOK OVER CARE OF PATIENT AT APPX 1530. SINCE THIS, PT HAS REMAINED MOSTLY UNRESPONSIVE. PT HAS NO VERBAL RESPONSE. DID SLIGHTLY REACT TO TOUCHES TO THE FACE. NO OTHER REACTIONS. Q2H TURNING AND ORAL CARE BEING COMPLETED. PT TOLERATING THESE WELL. X2 ASSIST. F/C IN PLACE DRAINING DARK YELLOW URINE. FLUIDS AND ABX INFUSING AT THIS TIME. NO NEEDS OR C/O NOTED. FSBS AT 1700 WAS 79. VSS.
[2023-08-09] MEDS: VANCOMYCIN/WATER FOR INJ (PEG) 1.25 GM/250 ML PIGGYBACK IV (20:36)
[2023-08-09] MEDS: PANTOPRAZOLE 40MG VIAL 40 MG IV (20:36)
[2023-08-09] MEDS: Dextrose 5 % and 0.9 % NaCl 1,000 ML 75 ML IV (21:01)
[2023-08-09 21:09] LABS: POC Glucose,Bedside 103 (70-110)
[2023-08-10] VITALS (10 sets, daily range): BP systolic 94–136; BP diastolic 62–68; PULSE 0–80; RESP 16–20; TEMP 36.4–36.9; O2SAT 96–98
[2023-08-10] MEDS: DOXYCYCLINE HYCLATE 100 MG in 0.9 % SODIUM CHLORIDE 250 ML 166.667000000000002 MG IV ×2 (04:47→18:01)
[2023-08-10 05:13] LABS: POC Glucose,Bedside 110 (70-110)
--- NOTE | 2023-08-10 05:18 | PC.NURSE ---
PATIENT IS NON-VERBAL. WILL OPEN EYES BRIEFLY TO SHAKING. VITAL SIGNS STABLE. NO INDICATIONS OF PAIN. REMAINS NPO. LIANG CATH PATENT AND INTACT TO BSD, URINE CLEAR YELLOW. HAS NOT REQUIRED S/S INSULIN THIS SHUFT. LAST FSBS WAs 110.
[2023-08-10] MEDS: ENOXAPARIN 40MG/0.4ML SYRINGE 40 MG SQ (08:49)
[2023-08-10] MEDS: CEFEPIME HCL 2 GM in 0.9 % SODIUM CHLORIDE 100 ML IV ×2 (08:50→21:07)
[2023-08-10 10:50] LABS: Basophils % 0.6 % (0.1-2.0); Eosinophils # 0.1 K/mm3 (0.0-0.4); Eosinophils % 0.8 % (0.1-12.0); Hematocrit 43.5 % (42.0-52.0); Hemoglobin 13.9 g/dL (14.1-18.0); Lymphocytes # 0.5 K/mm3 (0.7-4.5); Lymphocytes % 6.7 % (10-50); Mean Corpuscular HGB Conc 31.8 g/dL (31.8-35.4); Mean Corpuscular Hemoglobin 29.5 pg (27.0-31.2); Mean Corpuscular Volume 92.6 fl (80-94); Mean Platelet Volume 9.3 fl (7.4-10.4); Monocytes # 0.1 K/mm3 (0.1-1.0); Monocytes % 1.9 % (1.7-9.3); Neutrophils % 90.1 % (37.0-80.0); Platelet Count 208 K/mm3 (142-424); Red Cell Distribution Width 16.4 % (11.5-17.5); White Blood Count 6.7 K/mm3 (4.8-10.8)
--- NOTE | 2023-08-10 10:52 | PC.NURSE ---
I spoke with pt's brother Guille. He stated that he and his would be here around 2-2:30 this afternoon.
[2023-08-10 11:02] LABS: Anion Gap 11.9 mEq/L (5-15); Blood Urea Nitrogen 23 mg/dl (9-20); Calcium 7.9 mg/dl (8.4-10.2); Carbon Dioxide 22 mmol/L (22.0-30.0); Chloride 117 mmol/L (98-107); Creatine Kinase 437 U/L (55-170); Creatinine Clearance Estimated 54 mL/min (50-200); Estimated Glomerular Filt Rate 108 ml/min (>60); GFR (African American) 131 ML/MIN (>60); Glucose 121 mg/dl (74-100); Sodium 148 mmol/L (136-145)
[2023-08-10 11:04] LABS: Ammonia < 9 umol/L (9-30); Potassium 2.9 mmoL/L (3.5-5.1)
[2023-08-10 11:14] LABS: MANUAL DIFFERENTIAL MANUAL DIFFERENTIAL (MANUAL DIFF)
[2023-08-10 11:54] LABS: POC Glucose,Bedside 122 (70-110)
--- NOTE | 2023-08-10 11:54 | P.PN_ITS ---
Subjective Subjective Date: 08/10/23 Time: 10:00 Principal diagnosis: Sepsis, rhabdomyolysis Interval history: No significant clinical changes overnight. This morning patient is able to squeeze my hand on command but otherwise remains obtunded. 2D echo shows normal function but mild heterogeneous pericardial effusion which may be suggestive of mild bleeding. Exam Data for Last 24 hours Vital signs and Labs for Last 24 Hours: Temp Pulse Resp BP Pulse Ox O2 Del Method O2 Flow Rate 97.6 F 73 16 136/65 98 Room Air 1 08/10/23 11:08/10/23 11:08/10/23 11:08/10/23 11:08/10/23 11:08/10/23 11:08/09/23 04:00 Laboratory Results - last 24 hr 08/09/23 12:10: POC Glucose 96 08/09/23 17:28: POC Glucose 79 08/09/23 20:31: POC Glucose 103 08/10/23 05:04: POC Glucose 110 08/10/23 10:25: WBC 6.7 D, RBC 4.70, Hgb 13.9 L, Hct 43.5, MCV 92.6, MCH 29.5, MCHC 31.8, RDW 16.4, Plt Count 208, MPV 9.3, Neut % (Auto) 90.1 H, Lymph % (Auto) 6.7 L, [place] % (Auto) 1.9, Eos % (Auto) 0.8, Baso % (Auto) 0.6, Neut # (Auto) 6.0, Lymph # (Auto) 0.5 L, [place] # (Auto) 0.1, Eos # (Auto) 0.1, Baso # (Auto) 0.0, Sodium 148 H, Potassium 2.9 L*, Chloride 117 H, Carbon Dioxide 22, Anion Gap 11.9, BUN 23 H D, Creatinine 0.70, Estimated Creat Clear 54, Estimated GFR 108, Est GFR ( Amer) 131, Glucose 121 H, Calcium 7.9 L, Ammonia < 9 L , Total Creatine Kinase 437 H D Temp Pulse Resp BP Pulse Ox O2 Del Method O2 Flow Rate 98.5 F 79 19 88/53 L 100 Room Air 1 08/09/23 08:00 08/09/23 12:08/09/23 12:00 08/09/23 12:00 08/09/23 12:00 08/09/23 12:00 08/09/23 04:00 Laboratory Results - last 24 hr 08/08/23 16:12: VBG pH 7.43 H, VBG pCO2 31.8 L, VBG pO2 47.0 H, VBG HCO3 20.5 L, VBG Total CO2 21.5 L, VBG O2 Saturation 84.9 H, VBG Base Excess -3.9 L, VBG Lactic Acid 4.8 H 08/08/23 16:15: Urine Color [place]alle, Urine Appearance Clear, Urine pH 6.5, Ur Specific [place] 1.025, Urine Protein 1+, Urine Glucose (UA) Negative, Urine Ketones 1+, Urine Blood Trace-i, Urine Nitrate Positive, Urine Bilirubin 3+ A, Urine Urobilinogen >=8.0, Ur Leukocyte Esterase Negative, Urine RBC 3-5, Urine WBC None, Ur Squamous Epith Cells Occasional, Urine Bacteria Trace 08/08/23 16:18: WBC 14.4 H, RBC 5.98, Hgb 17.7, Hct 55.9 H, MCV 93.5, MCH 29.7, MCHC 31.7 L, RDW 16.3, Plt Count 257, MPV 8.9, Neut % (Auto) 93.7 H, Lymph % (Auto) 3.2 L, [place] % (Auto) 2.5, Eos % (Auto) 0.2, Baso % (Auto) 0.4, Neut # (Auto) 13.5 H, Lymph # (Auto) 0.5 L, [place] # (Auto) 0.4, Eos # (Auto) 0.0, Baso # (Auto) 0.1, Total Counted 100, Neutrophils % (Manual) 90 H, Lymphocytes % (Manual) 9 L, Monocytes % (Manual) 1 L, Platelet Estimate Normal, RBC Morphology Normal, Sodium 148 H, Potassium 5.3 H, Chloride 112 H, Carbon Dioxide 19 L, Anion Gap 22.3 H, BUN 62 H, Creatinine 1.10, Estimated Creat Clear 46, Estimated GFR 64, Est GFR ( Amer) 78, Glucose 140 H, Calcium 9.8, Total Bilirubin 2.5 H, AST 151 H, ALT 90 H, Alkaline Phosphatase 121, Total Creatine Kinase 2352 H*, Troponin I 0.06 H, Total Protein 9.4 H, Albumin 4.4, Globulin 5.0 H, Albumin/Globulin Ratio 0.9 L, TSH 21.20 H, Free T4 0.90 08/08/23 16:31: Plasma/Serum Alcohol < 10, Acetone Level None detected 08/08/23 19:08: Troponin I 0.07 H 08/08/23 21:00: Lactate 3.5 H 08/08/23 21:35: Ammonia < 9 L, Troponin I 0.07 H 08/08/23 22:05: POC Glucose 120 H 08/08/23 23:13: Lactate 2.9 H 08/09/23 00:33: Lactate 2.7 H 08/09/23 02:15: Troponin I 0.07 H 08/09/23 05:39: WBC 10.5 D, RBC 4.80, Hgb 14.4 D, Hct 44.5, MCV 92.7, MCH 30.0, MCHC 32.4, RDW 16.3, Plt Count 195, MPV 9.2, Neut % (Auto) 92.3 H, Lymph % (Auto) 4.4 L, [place] % (Auto) 3.0, Eos % (Auto) 0.1, Baso % (Auto) 0.2, Neut # (Auto) 9.7 H, Lymph # (Auto) 0.5 L, [place] # (Auto) 0.3, Eos # (Auto) 0.0, Baso # (Auto) 0.0, Total Counted 100, Neutrophils % (Manual) 75, Band Neutrophils % 16.0 H, Lymphocytes % (Manual) 4 L, Monocytes % (Manual) 4, Eosinophils % (Manual) 1, Platelet Estimate Normal, RBC Morphology Not Reportable, Hypochromasia 1+, Poikilocytosis 1+, Anisocytosis 1+, [place] Cells 1+, Sodium 149 H, Potassium 3.5 D, Chloride 117 H, Carbon Dioxide 23, Anion Gap 12.5, BUN 39 H D, Creatinine 0.70 D, Estimated Creat Clear 51, Estimated GFR 108, Est GFR ( Amer) 131 D, Glucose 105 H D, Calcium 8.1 L, Magnesium 2.0, Total Bilirubin 1.1, AST 103 H D, ALT 62 D, Alkaline Phosphatase 113, Total Creatine Kinase 1176 H* D, Total Protein 6.1 L D, Albumin 2.9 L D, Globulin 3.2, Albumin/Globulin Ratio 0.9 L 08/09/23 06:44: POC Glucose 101 08/09/23 12:10: POC Glucose 96 I & O for Last 24 hours: Intake & Output 08/07/23 08/08/23 08/09/23 08/10/23 23:59 23:59 23:59 23:59 Intake Total 2350 / 2350 2462 / 3942 2125 / 2125 Output Total 1500 / 1500 2115 / 2115 2650 / 2650 Balance 850 / 850 347 / 1827 -525 / -525 Weight 137 lb 9 oz 148 lb 1.352 oz 148 lb 1.6 oz Intake & Output 08/06/23 08/07/23 08/08/23 08/09/23 23:59 23:59 23:59 23:59 Intake Total 2350 / 2350 2230 / 2230 Output Total 1500 / 1500 1490 / 1490 Balance 850 / 850 740 / 740 Weight 137 lb 9 oz 138 lb 6.4 oz Microbiology Reports for the Last 24 Hours: Microbiology 08/08/23 17:00 Blood Blood Culture - Preliminary Microbiology 08/08/23 17:00 Blood Blood Culture - Preliminary Constitutional Constitutional: obtunded *Routine HEENT Exam Eye: Present PERRL *Routine Respiratory Exam Respiratory: Present CTA bilaterally; Absent accessory muscle use, wheezes or crackles *Routine Cardiovascular Exam Cardiovascular: Present RRR, Normal S1 and Normal S2; Absent murmur, gallop or rubs *Routine Abdominal Exam Abdominal: Present soft *Routine Extremities Exam Extremities: Present pulses intact; Absent cyanosis or edema *Routine Skin Exam Skin: Present intact; Absent erythema or wounds *Routine Neurological Exam Neurological: Present altered mental status Progress Note: A&P Assessment and plan (1) Severe sepsis with acute organ dysfunction: Status: Acute (2) Encephalopathy, metabolic: Status: Acute (3) Acute cystitis: Status: Acute (4) Hypothyroid: Status: Acute (5) Pneumonia: Status: Acute (6) Fracture of rib of right side: Status: Acute (7) Rhabdomyolysis: Status: Acute (8) Transaminitis: Status: Acute (9) NSTEMI (non-ST elevated myocardial infarction): Status: Acute Assessment and Plan Assessment and Plan for All Diagnoses:: Small anterior heterogeneous pericardial effusion -Possible bleed, labs stable, repeat limited echo tomorrow Elevated troponin -Mild flat troponin elevation in the setting of septic shock with rhabdomyolysis -Normal EKG -ECHO shows normal EF, no wall motion changes -Plan: No further inpatient ischemic workup warranted at this time, can reassess outpatient. Septic shock, rhabdomyolysis, rib fracture, pneumonia -Complex clinical scenario, patient on broad-spectrum antibiotics Acute metabolic encephalopathy -Staff attempting to contact family Altered Mental Status - pt obtunded but responds slowly to basic commands
[2023-08-10 12:34] LABS: Eosinophils % 1 % (0-3); Lymphocytes % 6 % (10-50); Neutrophils % 93 % (42-76); RBC Morphology Normal; Total Cells Counted 100
[2023-08-10 12:35] LABS: Platelet Estimate Normal
[2023-08-10] MEDS: Dextrose 5 % and 0.9 % NaCl 1,000 ML 75 ML IV (12:59)
--- NOTE | 2023-08-10 14:36 | CARE MANAGER ---
Expressed concern to Dr. Noe about K+ level of 2.9 and no K+ replacement ordered. ALFREDITO Crowell
--- NOTE | 2023-08-10 15:59 | EXP.PN ---
Subjective *Date: 08/10/23 *Time: 15:59 Interval history: patient is seen at bedside, he is lethargic and not holding conversations, he is not eating/swallowing Exam Data for Last 24 hours Vital signs and Labs for Last 24 Hours: Temp Pulse Resp BP Pulse Ox O2 Del Method O2 Flow Rate 97.6 F 60 16 136/65 98 Room Air 1 08/10/23 11:29 08/10/23 12:00 08/10/23 11:29 08/10/23 11:29 08/10/23 11:29 08/10/23 13:00 08/09/23 04:00 Laboratory Results - last 24 hr 08/09/23 17:28: POC Glucose 79 08/09/23 20:31: POC Glucose 103 08/10/23 05:04: POC Glucose 110 08/10/23 10:25: WBC 6.7 D, RBC 4.70, Hgb 13.9 L, Hct 43.5, MCV 92.6, MCH 29.5, MCHC 31.8, RDW 16.4, Plt Count 208, MPV 9.3, Neut % (Auto) 90.1 H, Lymph % (Auto) 6.7 L, [place] % (Auto) 1.9, Eos % (Auto) 0.8, Baso % (Auto) 0.6, Neut # (Auto) 6.0, Lymph # (Auto) 0.5 L, [place] # (Auto) 0.1, Eos # (Auto) 0.1, Baso # (Auto) 0.0, Total Counted 100, Neutrophils % (Manual) 93 H, Lymphocytes % (Manual) 6 L, Eosinophils % (Manual) 1, Platelet Estimate Normal, RBC Morphology Normal, Sodium 148 H, Potassium 2.9 L*, Chloride 117 H, Carbon Dioxide 22, Anion Gap 11.9, BUN 23 H D, Creatinine 0.70, Estimated Creat Clear 54, Estimated GFR 108, Est GFR ( Amer) 131, Glucose 121 H, Calcium 7.9 L, Ammonia < 9 L, Total Creatine Kinase 437 H D 08/10/23 11:33: POC Glucose 122 H I & O for Last 24 hours: Intake & Output 08/07/23 08/08/23 08/09/23 08/10/23 23:59 23:59 23:59 23:59 Intake Total 2350 / 2350 2462 / 3942 2125 / 2125 Output Total 1500 / 1500 2115 / 2115 2650 / 2650 Balance 850 / 850 347 / 1827 -525 / -525 Weight 62.397 kg 67.17 kg 67.177 kg Microbiology Reports for the Last 24 Hours: Microbiology 08/08/23 17:00 Blood Blood Culture - Preliminary Constitutional Constitutional: somnolent Comments: lethargic *Routine HEENT Exam Head: Present normocephalic Eye: Present EOMI and PERRL ENT: Present mucous membranes moist *Routine Neck Exam Neck: Present supple; Absent lymphadenopathy *Routine Respiratory Exam Respiratory: Present CTA bilaterally *Routine Cardiovascular Exam Cardiovascular: Present RRR *Routine Abdominal Exam Abdominal: Present soft and normoactive bowel sounds; Absent tenderness *Routine Extremities Exam Extremities: Absent cyanosis, clubbing or edema *Routine Skin Exam Skin: Present warm; Absent rash Assessment and Plan *Assessment and plan (1) Severe sepsis with acute organ dysfunction: Status: Acute Category: Medical Code(s): A41.9 - Sepsis, unspecified organism; R65.20 - Severe sepsis without septic shock (2) Encephalopathy, metabolic: Status: Acute Category: Medical Code(s): G93.41 - Metabolic encephalopathy (3) Acute cystitis: Status: Acute Qualifiers: Hematuria presence: without hematuria Qualified Code(s): N30.00 - Acute cystitis without hematuria Category: Medical Code(s): N30.00 - Acute cystitis without hematuria (4) Hypothyroid: Status: Acute Qualifiers: Hypothyroidism type: acquired Qualified Code(s): E03.9 - Hypothyroidism, unspecified Category: Medical Code(s): E03.9 - Hypothyroidism, unspecified (5) Pneumonia: Status: Acute Qualifiers: Pneumonia type: due to unspecified organism Laterality: right Lung location: lower lobe of lung Qualified Code(s): J18.9 - Pneumonia, unspecified organism Category: Medical Code(s): J18.9 - Pneumonia, unspecified organism (6) Fracture of rib of right side: Status: Acute Qualifiers: Encounter type: initial encounter Rib fracture type: multiple ribs Fracture type: closed Qualified Code(s): S22.41XA - Multiple fractures of ribs, right side, initial encounter for closed fracture Category: Medical Code(s): S22.31XA - Fracture of one rib, right side, initial encounter for closed fracture (7) Rhabdomyolysis: Status: Acute Qualifiers: Rhabdomyolysis type: traumatic Encounter type: initial encounter Qualified Code(s): T79.6XXA - Traumatic ischemia of muscle, initial encounter Category: Medical Code(s): M62.82 - Rhabdomyolysis (8) Transaminitis: Status: Acute Category: Medical Code(s): R74.01 - Elevation of levels of liver transaminase levels (9) NSTEMI (non-ST elevated myocardial infarction): Status: Acute Category: Medical Code(s): I21.4 - Non-ST elevation (NSTEMI) myocardial infarction Plan #Severe sepsis with organ dysfunction continue IV fluids, not requiring vasopresor support for now Blood cultures obtained prior to broad-spectrum antibiotic coverage Continue Vancomycin and cefepime Legionella, MRSA and sputum culture pending #Metabolic encephalopathy - improving Unknown baseline, no family at bedside to provide collateral Likely secondary to acute infection. May be element severe hypothyroidism causing myexadema coma like symptoms Some improvement in mental status noted after admission. Patient opening eyes to verbal stimuli and shaking his head yes and no spoken to Reorient as needed #Pneumonia #Right rib fractures Pneumonia likely sympathetic to right rib fractures given location Currently oxygenating well on room air Sputum culture pending Blood cultures pending Continue broad-spectrum antibiotic coverage #Anion Gap Acidosis likely secondary to dehydration, sepsis and trauma Continue MIVF Renal funciton stable #Traumatic rhabdomyolysis #Transaminitis CPK of 2300. Likely patient had fall resulting in right rib fractures and was found down after approximately 2 days Liver enzymes likely secondary to hepatic congestion given muscle breakdown with rhabdomyolysis Continue aggressive hydration Adames catheter for strict intake and output monitor CK level # Hypothyroidism Patient with known hypothyroidism with a TSH today of 21 Patient received 200 mcg of levothyroxine IV on admission Continue 100 mcg IV daily, transition to oral once able to take p.o. #Acute cystitis Urinalysis with only nitrite positive but given patient's altered mental status will continue antibiotics. Currently on broad-spectrum antibiotics #T2DM ISS, monitor #NSTEMI DVT PPx Lovenox Full code No family or contact information for collateral continue IV abx and IV fluids, monitor CK level, discussed with family at the bedside, and updated on plan of care
[2023-08-10] MEDS: KCl 10mEq/100ml 100 ML 100 MEQ IV ×3 (18:01→21:08)
[2023-08-10 18:53] LABS: POC Glucose,Bedside 110 (70-110)
[2023-08-10] MEDS: SODIUM CHLORIDE 0.9% 10ML VIAL 10 ML IV (21:07)
[2023-08-10] MEDS: PANTOPRAZOLE 40MG VIAL 40 MG IV (21:07)
[2023-08-10] MEDS: VANCOMYCIN/WATER FOR INJ (PEG) 1.25 GM/250 ML PIGGYBACK IV (21:17)
[2023-08-10 21:29] LABS: POC Glucose,Bedside 108 (70-110)
[2023-08-11] VITALS (9 sets, daily range): BP systolic 92–138; BP diastolic 63–70; PULSE 60–84; RESP 16–22; TEMP 35.8–36.9; O2SAT 91–100
[2023-08-11] MEDS: Dextrose 5 % and 0.9 % NaCl 1,000 ML 75 ML IV (01:57)
[2023-08-11] MEDS: DOXYCYCLINE HYCLATE 100 MG in 0.9 % SODIUM CHLORIDE 250 ML 166.667000000000002 MG IV ×2 (05:12→16:53)
[2023-08-11 06:07] LABS: Basophils % 0.4 % (0.1-2.0); Eosinophils # 0.1 K/mm3 (0.0-0.4); Eosinophils % 0.7 % (0.1-12.0); Hematocrit 45.6 % (42.0-52.0); Hemoglobin 14.3 g/dL (14.1-18.0); Lymphocytes # 0.6 K/mm3 (0.7-4.5); Lymphocytes % 7.2 % (10-50); Mean Corpuscular HGB Conc 31.3 g/dL (31.8-35.4); Mean Corpuscular Hemoglobin 29.5 pg (27.0-31.2); Mean Corpuscular Volume 94.1 fl (80-94); Mean Platelet Volume 9.4 fl (7.4-10.4); Monocytes # 0.2 K/mm3 (0.1-1.0); Monocytes % 2.8 % (1.7-9.3); Neutrophils # 7.1 K/mm3 (1.8-7.8); Platelet Count 161 K/mm3 (142-424); Red Blood Count 4.85 M/mm3 (4.60-6.20); Red Cell Distribution Width 16.5 % (11.5-17.5)
[2023-08-11 06:09] LABS: MANUAL DIFFERENTIAL MANUAL DIFFERENTIAL (MANUAL DIFF)
--- NOTE | 2023-08-11 06:11 | PC.NURSE ---
Pt only responds to touch, will moan when talked to, eyes remain open when turning and changing. Adames in place and draining. Remains on room air. Q2 turn. Call light in reach.
[2023-08-11 06:14] LABS: Blood Urea Nitrogen 19 mg/dl (9-20); Calcium 7.8 mg/dl (8.4-10.2); Carbon Dioxide 19 mmol/L (22.0-30.0); Chloride 117 mmol/L (98-107); Creatinine Clearance Estimated 54 mL/min (50-200); Estimated Glomerular Filt Rate 129 ml/min (>60); GFR (African American) 156 ML/MIN (>60); Glucose 136 mg/dl (74-100); Sodium 145 mmol/L (136-145)
[2023-08-11 06:23] LABS: POC Glucose,Bedside 117 (70-110)
[2023-08-11] MEDS: KCl 20mEq/100ml 100 ML 50 MEQ IV ×3 (06:25→10:52)
[2023-08-11 07:02] LABS: Thyroid Stimulating Hormone 5.16 uIU/mL (0.465-4.68)
[2023-08-11 07:51] LABS: Lymphocytes % 15 % (10-50); Neutrophils % 77 % (42-76); Total Cells Counted 100
[2023-08-11 07:56] LABS: Anisocytosis 1+; Platelet Estimate Normal; Poikilocytosis 1+; Tear Drop Cells 1+
[2023-08-11 08:05] LABS: Spherocytes 1+
[2023-08-11 08:06] LABS: Burr Cells 1+
[2023-08-11] MEDS: LEVOTHYROXINE SODIUM 100 MCG VIAL IV (08:11)
[2023-08-11] MEDS: ENOXAPARIN 40MG/0.4ML SYRINGE 40 MG SQ (08:12)
--- NOTE | 2023-08-11 08:39 | P.PN_ITS ---
Subjective *Date: 08/11/23 *Time: 08:39 Medical Exam Vital signs and Labs for Last 24 Hours: Vital Signs Temp Pulse Pulse Resp BP Pulse Ox O2 Del Method 08/11/23 06:55 Room Air 08/11/23 06:00 70 08/11/23 05:00 Room Air 08/11/23 04:00 98.2 F 76 20 105/67 L 96 Room Air 08/11/23 03:00 Room Air 08/11/23 03:00 60 08/11/23 01:00 Room Air 08/11/23 00:00 98.2 F 73 18 138/63 98 Room Air 08/10/23 23:00 Room Air 08/10/23 21:00 Room Air 08/10/23 20:00 80 08/10/23 20:00 Room Air 08/10/23 20:00 98.1 F 74 16 100/68 L 97 Room Air 08/10/23 19:00 Room Air 08/10/23 17:00 Room Air 08/10/23 16:00 75 08/10/23 16:00 98.4 F 76 20 94/62 L 96 Room Air 08/10/23 15:00 Room Air 08/10/23 13:00 Room Air 08/10/23 12:00 60 08/10/23 11:29 97.6 F 73 16 136/65 98 Room Air 08/10/23 11:00 Room Air 08/10/23 09:00 Room Air 08/10/23 08:50 Room Air Intake and Output 08/10/23 08/11/23 08/11/23 23:59 07:59 15:59 Intake Total 2272 / 3 Output Total 500 / 3150 1300 / 1300 Balance -500 / -1025 973 / 973 Intake: Intake, Total IV Amount 2272 / 2273 Cefepime HCl 2 gm In 0.9 % 100 / 100 Sodium Chloride 100 ml @ 200 mls/hr IV Q12H [facility] Rx#:[id number] Dextrose 5 % and 0.9 % NaCl 1, 1673 / 1673 000 ml @ 75 mls/hr IV .[id number] [facility] Rx#:[id number] Doxycycline Hyclate 100 mg In 0 250 / 250 .9 % Sodium Chloride 250 ml @ 166.667 mls/hr IV Q12H [facility] Rx#: [id number] Vancomycin/Water For Inj (Peg) 250 / 250 1.25 gm In 250 ml @ 125 mls/hr IV Q24H [facility] Rx#:[id number] Output: Output, Urine Amount 500 / 3150 1300 / 1300 Other: Number of Voids 0 Number of Unmeasured Voids 0 Weight 67.268 kg Patient Weight 08/11/23 23:59 Weight 67.268 kg Laboratory Results - last 24 hr 08/10/23 10:25: WBC 6.7 D, RBC 4.70, Hgb 13.9 L, Hct 43.5, MCV 92.6, MCH 29.5, MCHC 31.8, RDW 16.4, Plt Count 208, MPV 9.3, Neut % (Auto) 90.1 H, Lymph % (Auto) 6.7 L, [place] % (Auto) 1.9, Eos % (Auto) 0.8, Baso % (Auto) 0.6, Neut # (Auto) 6.0, Lymph # (Auto) 0.5 L, [place] # (Auto) 0.1, Eos # (Auto) 0.1, Baso # (Auto) 0.0, Total Counted 100, Neutrophils % (Manual) 93 H, Lymphocytes % ([place]) 6 L, Eosinophils % (Manual) 1, Platelet Estimate Normal, RBC Morphology Normal, Sodium 148 H, Potassium 2.9 L*, Chloride 117 H, Carbon Dioxide 22, Anion Gap 11.9, BUN 23 H D, Creatinine 0.70, Estimated Creat Clear 54, Estimated GFR 108, Est GFR ( Amer) 131, Glucose 121 H, Calcium 7.9 L, Ammonia < 9 L, Total Creatine Kinase 437 H D 08/10/23 11:33: POC Glucose 122 H 08/10/23 18:45: POC Glucose 110 08/10/23 20:39: POC Glucose 108 08/11/23 05:55: WBC 8.0, RBC 4.85, Hgb 14.3, Hct 45.6, MCV 94.1 H, MCH 29.5, MCHC 31.3 L, RDW 16.5, Plt Count 161, MPV 9.4, Neut % (Auto) 89.0 H, Lymph % (Auto) 7.2 L, [place] % (Auto) 2.8, Eos % (Auto) 0.7, Baso % (Auto) 0.4, Neut # (Auto) 7.1, Lymph # (Auto) 0.6 L, [place] # (Auto) 0.2, Eos # (Auto) 0.1, Baso # (Auto) 0.0, Total Counted 100, Neutrophils % (Manual) 77 H, Band Neutrophils % 8.0, Lymphocytes % (Manual) 15, Platelet Estimate Normal, Poikilocytosis 1+, Anisocytosis 1+, Spherocytes 1+, Tear Drop Cells 1+, [place] Cells 1+, Sodium 145, Potassium 3.0 L, Chloride 117 H, Carbon Dioxide 19 L, Anion Gap 12.0, BUN 19, Creatinine 0.60 L, Estimated Creat Clear 54, Estimated GFR 129, Est GFR ( Amer) 156, Glucose 136 H, Calcium 7.8 L, TSH 5.16 H D 08/11/23 06:15: POC Glucose 117 H I & O for Labs for Last 24 Hours: Intake & Output 08/08/23 08/09/23 08/10/23 08/11/23 23:59 23:59 23:59 23:59 Intake Total 2350 / 2350 2462 / 3942 2125 / 2125 2273 / 2273 Output Total 1500 / 1500 2115 / 2115 3150 / 3150 1300 / 1300 Balance 850 / 850 347 / 1827 -1025 / -1025 973 / 973 Weight 62.397 kg 67.17 kg 67.177 kg 67.268 kg Microbiology Reports for the Last 24 Hours: Microbiology 08/08/23 17:00 Blood Blood Culture - Preliminary The patient's infection will respond to the chosen ABx?: Yes (BLOOD CULTURES PE NDING, SPUTUM UNCOLLECTED. AFEBRILE OVER 24 HR, WBC 8.0) Is the patient receiving the right drug, dose, and route?: Yes Could a more targeted ABx be ordered?: No
--- NOTE | 2023-08-11 09:00 | CA_ITS ---
APPROVED REPORT EXAM: Comprehensive 2D, Doppler, and color-flow Echocardiogram Machining Associate: Carmela Jones, RCS, RVS Ht: 6 ft 0 in Wt: 148lbs BSA: 1.87 BP: 136/55 mmHg Indications: Septic shock, Follow up effusion, DM, Elevated tropnins 2D Dimensions IVSd 0.60 cm M: 0.6-1.2 LVEF (Visual) 35.90 % PWd 0.37 cm M: 0.6 - 1.2 LVDd 5.19 cm M: 4.2 - 5.9 LVDs 4.29 cm M: 2.5 - 4.0 M-Mode Dimensions RVDd 1.71 cm (0.9-2.6) LVDd 5.23 cm (3.5-5.7) LVDs 4.22 cm (3.5-5.7) IVSd 0.70 cm (0.6-1.1) PWd 0.67 cm (0.6-1.1) EF (Teich) 39.40% FS 19.30% EDV (Teich) 131.20 mL ESV (Teich) 79.50 mL LV Diastology E Decel Time 217 (160-240 msec) E/A Ratio 1.19 MED A' 7.00 cm/s LAT A' 10.00 cm/s Mitral Valve MV A Velocity 52.0 (40-130 cm/s) E/A Ratio 1.19 Other Information Study Quality: Technically Difficult Conclusion This is a limited TTE to evaluate for pericardial effusion. Limited windows were obtained. Technically difficult study. There is a small sized, anterior pericardial effusion present. The largest pocket measures 0.3-0.4 cm in diastole. The effusion appears heterogeneous and echodensity. No echo indications of tamponade. Compared to prior study from 2 days prior on 08/09/2023, no significant changes are noted. Electronically signed by : Anupama Delarosa MD 08/11/2023 23:09:54
--- NOTE | 2023-08-11 10:02 | DIET.NUTRFU ---
Addendum entered by Dorinda Hendrix RD, LD 08/11/23 11:24: Spoke to brother and explained TF via NGT and he okay to proceed. Brother does not want PEG if needed manufacturing advisor but was okay with providing nutrition short term to see if the ABT tx would improve his mental status over the next couple days. If mental status improves will consult TAX ACCOUNTING MANAGER for swallow study to determine if oral diet is appropriate. Patient was on a regular diet prior to admit and was independent with meals. Provider ordered another CT scan to review. Brother did also review code status with nursing and patient was made a DNR. PMH indicates patient is diabetic, but does not take medications for that and BS have been fairly controlled since admit (110-136). Will start Jevity 1.2 at 20ml/hr via NG tube with 60ml/hr as goal to provide 100% nutrition at 1728kcal/80mg protein with 1162ml formula water. Currently on dextrose, minimal flushes until fluid completed. Other labs reviewed. No reported BM since admit, no meds in place will continue to monitor. Original Note: Saw patient this morning, nursing staff present. He was unable to follow commands, asked him to blink eyes or squeeze my hand and he was unable to respond. His eye are open and he hangs his mouth open and moans slightly. He continues to be NPO, based on today visit he would not be able to follow commands for bedside swallow. Spoke to dialysis social worker who has been in connect with family and they are not ready for hospice. Currently on Dextrose providing minimal calories. Would recommend NG tube with TF to provide nutritional needs until more alert or usp. He is currently at risk for PCM, will review with provider and nursing team during rounds
[2023-08-11] MEDS: CEFEPIME HCL 2 GM in 0.9 % SODIUM CHLORIDE 100 ML IV ×2 (10:18→20:30)
[2023-08-11 10:30] LABS: POC Glucose,Bedside 118 (70-110)
--- NOTE | 2023-08-11 10:52 | EXP.CARD.PN ---
Subjective Subjective Date: 08/11/23 Time: 10:00 Principal diagnosis: Sepsis, rhabdomyolysis Interval history: No significant change overnight. Patient is obtunded and noncommunicative. Exam Data for Last 24 hours Vital signs and Labs for Last 24 Hours: Temp Pulse Resp BP Pulse Ox O2 Del Method O2 Flow Rate 97.9 F 77 20 109/70 L 96 Room Air 1 08/11/23 08:00 08/11/23 08:00 08/11/23 08:00 08/11/23 08:00 08/11/23 08:00 08/11/23 09:00 08/09/23 04:00 Laboratory Results - last 24 hr 08/10/23 10:25: WBC 6.7 D, RBC 4.70, Hgb 13.9 L, Hct 43.5, MCV 92.6, MCH 29.5, MCHC 31.8, RDW 16.4, Plt Count 208, MPV 9.3, Neut % (Auto) 90.1 H, Lymph % (Auto) 6.7 L, [place] % (Auto) 1.9, Eos % (Auto) 0.8, Baso % (Auto) 0.6, Neut # (Auto) 6.0, Lymph # (Auto) 0.5 L, [place] # (Auto) 0.1, Eos # (Auto) 0.1, Baso # (Auto) 0.0, Total Counted 100, Neutrophils % (Manual) 93 H, Lymphocytes % (Manual) 6 L, Eosinophils % (Manual) 1, Platelet Estimate Normal, RBC Morphology Normal, Sodium 148 H, Potassium 2.9 L*, Chloride 117 H, Carbon Dioxide 22, Anion Gap 11.9, BUN 23 H D, Creatinine 0.70, Estimated Creat Clear 54, Estimated GFR 108, Est GFR ( Amer) 131, Glucose 121 H, Calcium 7.9 L, Ammonia < 9 L, Total Creatine Kinase 437 H D 08/10/23 11:33: POC Glucose 122 H 08/10/23 18:45: POC Glucose 110 08/10/23 20:39: POC Glucose 108 08/11/23 05:55: WBC 8.0, RBC 4.85, Hgb 14.3, Hct 45.6, MCV 94.1 H, MCH 29.5, MCHC 31.3 L, RDW 16.5, Plt Count 161, MPV 9.4, Neut % (Auto) 89.0 H, Lymph % (Auto) 7.2 L, [place] % (Auto) 2.8, Eos % (Auto) 0.7, Baso % (Auto) 0.4, Neut # (Auto) 7.1, Lymph # (Auto) 0.6 L, [place] # (Auto) 0.2, Eos # (Auto) 0.1, Baso # (Auto) 0.0, Total Counted 100, Neutrophils % (Manual) 77 H, Band Neutrophils % 8.0, Lymphocytes % (Manual) 15, Platelet Estimate Normal, Poikilocytosis 1+, Anisocytosis 1+, Spherocytes 1+, Tear Drop Cells 1+, [place] Cells 1+, Sodium 145, Potassium 3.0 L, Chloride 117 H, Carbon Dioxide 19 L, Anion Gap 12.0, BUN 19, Creatinine 0.60 L, Estimated Creat Clear 54, Estimated GFR 129, Est GFR ( Amer) 156, Glucose 136 H, Calcium 7.8 L, TSH 5.16 H D 08/11/23 06:15: POC Glucose 117 H 08/11/23 10:22: POC Glucose 118 H Temp Pulse Resp BP Pulse Ox O2 Del Method O2 Flow Rate 98.5 F 79 19 88/53 L 100 Room Air 1 08/09/23 08:00 08/09/23 12:00 08/09/23 12:00 08/09/23 12:00 08/09/23 12:00 08/09/23 12:00 08/09/23 04:00 Laboratory Results - last 24 hr 08/08/23 16:12: VBG pH 7.43 H, VBG pCO2 31.8 L, VBG pO2 47.0 H, VBG HCO3 20.5 L, VBG Total CO2 21.5 L, VBG O2 Saturation 84.9 H, VBG Base Excess -3.9 L, VBG Lactic Acid 4.8 H 08/08/23 16:15: Urine Color [place], Urine Appearance Clear, Urine pH 6.5, Ur Specific [place] 1.025, Urine Protein 1+, Urine Glucose (UA) Negative, Urine Ketones 1+, Urine Blood Trace-i, Urine Nitrate Positive, Urine Bilirubin 3+ A, Urine Urobilinogen >=8.0, Ur Leukocyte Esterase Negative, Urine RBC 3-5, Urine WBC None, Ur Squamous Epith Cells Occasional, Urine Bacteria Trace 08/08/23 16:18: WBC 14.4 H, RBC 5.98, Hgb 17.7, Hct 55.9 H, MCV 93.5, MCH 29.7, MCHC 31.7 L, RDW 16.3, Plt Count 257, MPV 8.9, Neut % (Auto) 93.7 H, Lymph % (Auto) 3.2 L, [place] % (Auto) 2.5, Eos % (Auto) 0.2, Baso % (Auto) 0.4, Neut # (Auto) 13.5 H, Lymph # (Auto) 0.5 L, [place] # (Auto) 0.4, Eos # (Auto) 0.0, Baso # (Auto) 0.1, Total Counted 100, Neutrophils % (Manual) 90 H, Lymphocytes % (Manual) 9 L, Monocytes % (Manual) 1 L, Platelet Estimate Normal, RBC Morphology Normal, Sodium 148 H, Potassium 5.3 H, Chloride 112 H, Carbon Dioxide 19 L, Anion Gap 22.3 H, BUN 62 H, Creatinine 1.10, Estimated Creat Clear 46, Estimated GFR 64, Est GFR ( Amer) 78, Glucose 140 H, Calcium 9.8, Total Bilirubin 2.5 H, AST 151 H, ALT 90 H, Alkaline Phosphatase 121, Total Creatine Kinase 2352 H*, Troponin I 0.06 H, Total Protein 9.4 H, Albumin 4.4, Globulin 5.0 H, Albumin/Globulin Ratio 0.9 L, TSH 21.20 H, Free T4 0.90 08/08/23 16:31: Plasma/Serum Alcohol < 10, Acetone Level None detected 08/08/23 19:08: Troponin I 0.07 H 08/08/23 21:00: Lactate 3.5 H 08/08/23 21:35: Ammonia < 9 L, Troponin I 0.07 H 08/08/23 22:05: POC Glucose 120 H 08/08/23 23:13: Lactate 2.9 H 08/09/23 00:33: Lactate 2.7 H 08/09/23 02:15: Troponin I 0.07 H 08/09/23 05:39: WBC 10.5 D, RBC 4.80, Hgb 14.4 D, Hct 44.5, MCV 92.7, MCH 30.0, MCHC 32.4, RDW 16.3, Plt Count 195, MPV 9.2, Neut % (Auto) 92.3 H, Lymph % (Auto) 4.4 L, [place] % (Auto) 3.0, Eos % (Auto) 0.1, Baso % (Auto) 0.2, Neut # (Auto) 9.7 H, Lymph # (Auto) 0.5 L, [place] # (Auto) 0.3, Eos # (Auto) 0.0, Baso # (Auto) 0.0, Total Counted 100, Neutrophils % (Manual) 75, Band Neutrophils % 16.0 H, Lymphocytes % (Manual) 4 L, Monocytes % (Manual) 4, Eosinophils % (Manual) 1, Platelet Estimate Normal, RBC Morphology Not Reportable, Hypochromasia 1+, Poikilocytosis 1+, Anisocytosis 1+, [place] Cells 1+, Sodium 149 H, Potassium 3.5 D, Chloride 117 H, Carbon Dioxide 23, Anion Gap 12.5, BUN 39 H D, Creatinine 0.70 D, Estimated Creat Clear 51, Estimated GFR 108, Est GFR ( Amer) 131 D, Glucose 105 H D, Calcium 8.1 L, Magnesium 2.0, Total Bilirubin 1.1, AST 103 H D, ALT 62 D, Alkaline Phosphatase 113, Total Creatine Kinase 1176 H* D, Total Protein 6.1 L D, Albumin 2.9 L D, Globulin 3.2, Albumin/Globulin Ratio 0.9 L 08/09/23 06:44: POC Glucose 101 08/09/23 12:10: POC Glucose 96 I & O for Last 24 hours: Intake & Output 08/08/23 08/09/23 08/10/23 08/11/23 23:59 23:59 23:59 23:59 Intake Total 2350 / 2350 2462 / 3942 2124 / 5 2273 / 2273 Output Total 1500 / 1500 2115 / 2115 3150 / 3150 1300 / 1300 Balance 850 / 850 347 / 1827 -1025 / -1025 973 / 973 Weight 137 lb 9 oz 148 lb 1.352 oz 148 lb 1.6 oz 148 lb 4.8 oz Intake & Output 08/06/23 08/07/23 08/08/23 08/09/23 23:59 23:59 23:59 23:59 Intake Total 2350 / 2350 2230 / 2230 Output Total 1500 / 1500 1490 / 1490 Balance 850 / 850 740 / 740 Weight 137 lb 9 oz 138 lb 6.4 oz Microbiology Reports for the Last 24 Hours: Microbiology 08/08/23 17:00 Blood Blood Culture - Final Staphylococcus epidermidis Microbiology 08/08/23 17:00 Blood Blood Culture - Preliminary Constitutional Constitutional: obtunded *Routine HEENT Exam Eye: Present PERRL *Routine Respiratory Exam Respiratory: Present CTA bilaterally; Absent accessory muscle use, wheezes or crackles *Routine Cardiovascular Exam Cardiovascular: Present RRR, Normal S1 and Normal S2; Absent murmur, gallop or rubs *Routine Abdominal Exam Abdominal: Present soft *Routine Extremities Exam Extremities: Present pulses intact; Absent cyanosis or edema *Routine Skin Exam Skin: Present intact; Absent erythema or wounds *Routine Neurological Exam Neurological: Present altered mental status Progress Note: A&P Assessment and plan (1) Severe sepsis with acute organ dysfunction: Status: Acute (2) Encephalopathy, metabolic: Status: Acute (3) Acute cystitis: Status: Acute (4) Hypothyroid: Status: Acute (5) Pneumonia: Status: Acute (6) Fracture of rib of right side: Status: Acute (7) Rhabdomyolysis: Status: Acute (8) Transaminitis: Status: Acute (9) NSTEMI (non-ST elevated myocardial infarction): Status: Acute Assessment and Plan Assessment and Plan for All Diagnoses:: Small anterior heterogeneous pericardial effusion -Possible bleed, labs stable -Plan: repeat limited echo today Elevated troponin -Mild flat troponin elevation in the setting of septic shock with rhabdomyolysis -Normal EKG -ECHO shows normal EF, no wall motion changes -Plan: No further inpatient ischemic workup warranted at this time, can reassess outpatient. Septic shock, rhabdomyolysis, rib fracture, pneumonia -Complex clinical scenario, patient on broad-spectrum antibiotics Acute metabolic encephalopathy -Staff attempting to contact family Altered Mental Status - pt obtunded but responds slowly to basic commands 08/10: Repeat limited ECHO shows no change and no evidence of bleeding. No further inpatient CV workup warranted at this time. Patient can f/u in our office 2 weeks post discharge.
--- NOTE | 2023-08-11 10:58 | CT_ITS ---
FINAL REPORT CLINICAL HISTORY: change in mental status COMPARISON: 08/08/2023 FINDINGS: Axial images of the head were obtained without contrast. Coronal and sagittal reformatted images were also obtained. This study was performed with techniques to keep radiation doses as low as reasonably achievable (ALARA). Individualized dose reduction techniques using automated exposure control or adjustment of mA and/or kV according to the patient's size were employed. There is generalized age-appropriate atrophy. Periventricular low-attenuation areas are seen consistent with mild chronic ischemic changes. There is no evidence of intracranial hemorrhage or mass. There is no evidence of acute infarct. There is no evidence of shift of the midline structures. No skull abnormality is seen on the bone window images. IMPRESSION: Atrophy and mild periventricular chronic ischemic changes. No acute intracranial abnormality identified. Reviewed, Interpreted and Dictated by Uriel Miranda III, MD Transcribed by Jessica Pineda Authenticated and [facility]
--- NOTE | 2023-08-11 13:05 | XR_ITS ---
FINAL REPORT CLINICAL HISTORY: NG placement. FINDINGS: ABDOMEN SINGLE VIEW There is a nonspecific, nonobstructive bowel gas pattern. No bowel dilation is identified. No abnormal calcification is seen. NG tube tip terminates in the body of the stomach. There are right base pulmonary opacities worrisome for pneumonia. IMPRESSION: NG tube as above. Findings worrisome for right base pneumonia. Reviewed, Interpreted and Dictated by Uriel Miranda III, MD Transcribed by Nitza Acosta Authenticated and [facility]
--- NOTE | 2023-08-11 13:10 | PC.NURSE ---
NG placed right nare.
--- NOTE | 2023-08-11 15:58 | PC.NURSE ---
Dr. Hasmukh harley to start tube feed. jevity 1.2 started at 20 ml/hr with free h2o 125 ml every 6 hours.
[2023-08-11 16:29] LABS: POC Glucose,Bedside 138 (70-110)
--- NOTE | 2023-08-11 17:05 | EXP.PN ---
Subjective *Date: 08/11/23 *Time: 17:05 Interval history: Patient is opening eyes, more alert and awake than yesterday however not completely following commands he appears confused Exam Data for Last 24 hours Vital signs and Labs for Last 24 Hours: Temp Pulse Resp BP Pulse Ox O2 Del Method O2 Flow Rate 98.2 F 65 22 100/70 L 95 Room Air 1 08/11/23 11:30 08/11/23 16:00 08/11/23 11:30 08/11/23 11:30 08/11/23 11:30 08/11/23 15:00 08/09/23 04:00 Laboratory Results - last 24 hr 08/10/23 18:45: POC Glucose 110 08/10/23 20:39: POC Glucose 108 08/11/23 05:55: WBC 8.0, RBC 4.85, Hgb 14.3, Hct 45.6, MCV 94.1 H, MCH 29.5, MCHC 31.3 L, RDW 16.5, Plt Count 161, MPV 9.4, Neut % (Auto) 89.0 H, Lymph % (Auto) 7.2 L, [place] % (Auto) 2.8, Eos % (Auto) 0.7, Baso % (Auto) 0.4, Neut # (Auto) 7.1, Lymph # (Auto) 0.6 L, [place] # (Auto) 0.2, Eos # (Auto) 0.1, Baso # (Auto) 0.0, Total Counted 100, Neutrophils % (Manual) 77 H, Band Neutrophils % 8.0, Lymphocytes % (Manual) 15, Platelet Estimate Normal, Poikilocytosis 1+, Anisocytosis 1+, Spherocytes 1+, Tear Drop Cells 1+, [place] Cells 1+, Sodium 145, Potassium 3.0 L, Chloride 117 H, Carbon Dioxide 19 L, Anion Gap 12.0, BUN 19, Creatinine 0.60 L, Estimated Creat Clear 54, Estimated GFR 129, Est GFR ( Amer) 156, Glucose 136 H, Calcium 7.8 L, TSH 5.16 H D 08/11/23 06:15: POC Glucose 117 H 08/11/23 10:22: POC Glucose 118 H 08/11/23 16:21: POC Glucose 138 H I & O for Last 24 hours: Intake & Output 08/08/23 08/09/23 08/10/23 08/11/23 23:59 23:59 23:59 23:59 Intake Total 2350 / 2350 2462 / 3942 2125 / 2125 3498 / 3498 Output Total 1500 / 1500 2115 / 2115 3150 / 3150 2700 / 2700 Balance 850 / 850 347 / 1827 -1025 / -1025 798 / 798 Weight 62.397 kg 67.17 kg 67.177 kg 67.268 kg Microbiology Reports for the Last 24 Hours: Microbiology 08/08/23 17:00 Blood Blood Culture - Final Staphylococcus epidermidis Constitutional Constitutional: somnolent Comments: lethargic *Routine HEENT Exam Head: Present normocephalic Eye: Present EOMI and PERRL ENT: Present mucous membranes moist *Routine Neck Exam Neck: Present supple; Absent lymphadenopathy *Routine Respiratory Exam Respiratory: Present CTA bilaterally *Routine Cardiovascular Exam Cardiovascular: Present RRR *Routine Abdominal Exam Abdominal: Present soft and normoactive bowel sounds; Absent tenderness *Routine Extremities Exam Extremities: Absent cyanosis, clubbing or edema *Routine Skin Exam Skin: Present warm; Absent rash *Routine Neurological Exam Neurological: Present altered mental status Assessment and Plan *Assessment and plan (1) Severe sepsis with acute organ dysfunction: Status: Acute Category: Medical Code(s): A41.9 - Sepsis, unspecified organism; R65.20 - Severe sepsis without septic shock (2) Encephalopathy, metabolic: Status: Acute Category: Medical Code(s): G93.41 - Metabolic encephalopathy (3) Acute cystitis: Status: Acute Qualifiers: Hematuria presence: without hematuria Qualified Code(s): N30.00 - Acute cystitis without hematuria Category: Medical Code(s): N30.00 - Acute cystitis without hematuria (4) Hypothyroid: Status: Acute Qualifiers: Hypothyroidism type: acquired Qualified Code(s): E03.9 - Hypothyroidism, unspecified Category: Medical Code(s): E03.9 - Hypothyroidism, unspecified (5) Pneumonia: Status: Acute Qualifiers: Pneumonia type: due to unspecified organism Laterality: right Lung location: lower lobe of lung Qualified Code(s): J18.9 - Pneumonia, unspecified organism Category: Medical Code(s): J18.9 - Pneumonia, unspecified organism (6) Fracture of rib of right side: Status: Acute Qualifiers: Encounter type: initial encounter Rib fracture type: multiple ribs Fracture type: closed Qualified Code(s): S22.41XA - Multiple fractures of ribs, right side, initial encounter for closed fracture Category: Medical Code(s): S22.31XA - Fracture of one rib, right side, initial encounter for closed fracture (7) Rhabdomyolysis: Status: Acute Qualifiers: Rhabdomyolysis type: traumatic Encounter type: initial encounter Qualified Code(s): T79.6XXA - Traumatic ischemia of muscle, initial encounter Category: Medical Code(s): M62.82 - Rhabdomyolysis (8) Transaminitis: Status: Acute Category: Medical Code(s): R74.01 - Elevation of levels of liver transaminase levels (9) NSTEMI (non-ST elevated myocardial infarction): Status: Acute Category: Medical Code(s): I21.4 - Non-ST elevation (NSTEMI) myocardial infarction Plan #Severe sepsis with organ dysfunction continue IV fluids, not requiring vasopresor support for now Blood cultures obtained prior to broad-spectrum antibiotic coverage Continue Vancomycin and cefepime Legionella, MRSA and sputum culture pending #Metabolic encephalopathy - improving Unknown baseline, no family at bedside to provide collateral Likely secondary to acute infection. May be element severe hypothyroidism causing myexadema coma like symptoms Some improvement in mental status noted after admission. Patient opening eyes to verbal stimuli and shaking his head yes and no spoken to Reorient as needed #Pneumonia #Right rib fractures Pneumonia likely sympathetic to right rib fractures given location Currently oxygenating well on room air Sputum culture pending Blood cultures pending Continue broad-spectrum antibiotic coverage #Anion Gap Acidosis likely secondary to dehydration, sepsis and trauma Continue MIVF Renal funciton stable #Traumatic rhabdomyolysis #Transaminitis CPK of 2300. Likely patient had fall resulting in right rib fractures and was found down after approximately 2 days Liver enzymes likely secondary to hepatic congestion given muscle breakdown with rhabdomyolysis Continue aggressive hydration Adames catheter for strict intake and output monitor CK level # Hypothyroidism Patient with known hypothyroidism with a TSH today of 21 Patient received 200 mcg of levothyroxine IV on admission Continue 100 mcg IV daily, transition to oral once able to take p.o. #Acute cystitis Urinalysis with only nitrite positive but given patient's altered mental status will continue antibiotics. Currently on broad-spectrum antibiotics #T2DM ISS, monitor #NSTEMI DVT PPx Lovenox Full code No family or contact information for collateral continue IV abx and IV fluids, monitor CBC, BMP, started on feeding tube
[2023-08-11] MEDS: KCl 10mEq/100ml 100 ML 100 MEQ IV (17:21)
[2023-08-11 20:17] LABS: Vancomycin,Trough 11.4 ug/mL (5.0-10.0)
[2023-08-11] MEDS: VANCOMYCIN/WATER FOR INJ (PEG) 1.25 GM/250 ML PIGGYBACK IV (20:26)
[2023-08-11] MEDS: PANTOPRAZOLE 40MG VIAL 40 MG IV (20:26)
[2023-08-11 20:43] LABS: POC Glucose,Bedside 112 (70-110)
--- NOTE | 2023-08-11 21:29 | PC.NURSE ---
GR was 15cc. pt tolerating feed well. increased rate to 40ml/hr.
[2023-08-12] VITALS (9 sets, daily range): BP systolic 90–106; BP diastolic 48–70; PULSE 64–111; RESP 16–22; TEMP 36.3–36.9; O2SAT 97–100
--- NOTE | 2023-08-12 01:36 | PC.NURSE ---
pts bp came up to 103/59 after 250cc of fluid given. pt denies any complaints
--- NOTE | 2023-08-12 01:49 | PC.NURSE ---
GR was 150cc gastric contents, rate still at 40ml/hr.
--- NOTE | 2023-08-12 05:49 | PC.NURSE ---
GR was 100cc of gastric contents, rate at 40mlhr. checked ng tube placement by auscultation. still in proper place. pts abdomen is soft with no distention noted. no vomiting through the shift. pt still obtunded. doesn't follow commands. ocassional groaning through the shift. lerner to bedside draining dark yellow urine. room air. vss. pt receiving iv abx. bed alarm on
[2023-08-12] MEDS: DOXYCYCLINE HYCLATE 100 MG in 0.9 % SODIUM CHLORIDE 250 ML 166.667000000000002 MG IV ×2 (05:57→17:40)
[2023-08-12] MEDS: LEVOTHYROXINE SODIUM 100 MCG VIAL IV (06:03)
[2023-08-12 06:09] LABS: Basophils % 0.2 % (0.1-2.0); Eosinophils # 0.1 K/mm3 (0.0-0.4); Eosinophils % 0.7 % (0.1-12.0); Hematocrit 45.3 % (42.0-52.0); Hemoglobin 14.4 g/dL (14.1-18.0); Lymphocytes # 0.6 K/mm3 (0.7-4.5); Lymphocytes % 8.4 % (10-50); Mean Corpuscular HGB Conc 31.7 g/dL (31.8-35.4); Mean Corpuscular Hemoglobin 29.1 pg (27.0-31.2); Mean Corpuscular Volume 91.9 fl (80-94); Mean Platelet Volume 9.6 fl (7.4-10.4); Monocytes # 0.2 K/mm3 (0.1-1.0); Neutrophils # 6.4 K/mm3 (1.8-7.8); Neutrophils % 88.7 % (37.0-80.0); Platelet Count 145 K/mm3 (142-424); Red Blood Count 4.93 M/mm3 (4.60-6.20); Red Cell Distribution Width 16.6 % (11.5-17.5); White Blood Count 7.3 K/mm3 (4.8-10.8)
[2023-08-12 06:11] LABS: MANUAL DIFFERENTIAL MANUAL DIFFERENTIAL (MANUAL DIFF)
[2023-08-12 06:17] LABS: POC Glucose,Bedside 123 (70-110)
[2023-08-12 06:21] LABS: Anion Gap 16.3 mEq/L (5-15); Blood Urea Nitrogen 21 mg/dl (9-20); Carbon Dioxide 16 mmol/L (22.0-30.0); Chloride 115 mmol/L (98-107); Creatinine Clearance Estimated 54 mL/min (50-200); Estimated Glomerular Filt Rate 129 ml/min (>60); Potassium 3.3 mmoL/L (3.5-5.1); Sodium 144 mmol/L (136-145)
[2023-08-12 06:22] LABS: Calcium 8.1 mg/dl (8.4-10.2); GFR (African American) 156 ML/MIN (>60); Glucose 138 mg/dl (74-100)
--- NOTE | 2023-08-12 07:49 | EXP.PHA.PN ---
Subjective *Date: 08/12/23 *Time: 07:49 Medical Exam Vital signs and Labs for Last 24 Hours: Vital Signs Temp Pulse Pulse Resp BP Pulse Ox O2 Del Method 08/12/23 07:31 97.4 F L 90 22 90/48 L 100 Room Air 08/12/23 06:44 Room Air 08/12/23 05:00 Room Air 08/12/23 04:00 98.4 F 89 20 91/49 L 100 Room Air 08/12/23 04:00 86 08/12/23 03:00 Room Air 08/12/23 01:00 Room Air 08/12/23 00:00 98.2 F 80 17 90/57 L 98 Room Air 08/11/23 23:00 Room Air 08/11/23 21:00 Room Air 08/11/23 20:00 80 08/11/23 20:00 98.5 F 84 18 103/68 L 91 L Room Air 08/11/23 19:56 Room Air 08/11/23 18:08 Room Air 08/11/23 17:00 Room Air 08/11/23 16:00 96.5 F L 73 16 92/63 L 100 Room Air 08/11/23 16:00 65 08/11/23 15:00 Room Air 08/11/23 13:00 Room Air 08/11/23 12:04 Room Air 08/11/23 12:00 75 08/11/23 11:30 98.2 F 83 22 100/70 L 95 Room Air 08/11/23 11:00 Room Air 08/11/23 09:00 Room Air 08/11/23 08:00 75 08/11/23 08:00 Room Air 08/11/23 08:00 97.9 F 77 20 109/70 L 96 Room Air Intake and Output 08/11/23 08/11/23 08/12/23 15:59 23:59 07:59 Intake Total 300 / 3848 925 / 3848 576 / 576 Output Total 1400 / 3200 500 / 3200 1270 / 1270 Balance -1100 / 648 425 / 648 -694 / -694 Intake: Intake, Tube Feeding Amount 226 / 226 Intake, Total IV Amount 300 / 3848 925 / 3848 350 / 350 Cefepime HCl 2 gm In 0.9 % 100 / 300 100 / 100 Sodium Chloride 100 ml @ 200 mls/hr IV Q12H [facility] Rx#:[id number] Dextrose 5 % and 0.9 % NaCl 1, 675 / 2348 000 ml @ 75 mls/hr IV .[id number] [facility] Rx#:[id number] Doxycycline Hyclate 100 mg In 0 250 / 500 .9 % Sodium Chloride 250 ml @ 166.667 mls/hr IV Q12H [facility] Rx#: [id number] KCl 20mEq/100ml 100 ml @ 50 mls 100 / 100 /hr IV Q2H [facility] Rx#:[id number] KCl 20mEq/100ml 100 ml @ 50 mls 100 / 100 /hr IV Q2H [facility] Rx#:[id number] Vancomycin/Water For Inj (Peg) 250 / 250 1.25 gm In 250 ml @ 125 mls/hr IV Q24H [facility] Rx#:[id number] Output: Output, Urine Amount 500 / 1800 550 / 550 Output, Urine Amount (Catheter) 1400 / 1400 720 / 720 Adames 1400 / 1400 720 / 720 Other: Number of Unmeasured Voids 0 0 0 Weight 67.3 kg Patient Weight 08/12/23 23:59 Weight 67.3 kg Laboratory Results - last 24 hr 08/11/23 05:55: Total Counted 100, Neutrophils % (Manual) 77 H, Band Neutrophils % 8.0, Lymphocytes % (Manual) 15, Platelet Estimate Normal, Poikilocytosis 1+, Anisocytosis 1+, Spherocytes 1+, Tear Drop Cells 1+, [place] Cells 1+ 08/11/23 10:22: POC Glucose 118 H 08/11/23 16:21: POC Glucose 138 H 08/11/23 19:52: Vancomycin Trough 11.4 H 08/11/23 20:21: POC Glucose 112 H 08/12/23 05:36: WBC 7.3, RBC 4.93, Hgb 14.4, Hct 45.3, MCV 91.9, MCH 29.1, MCHC 31.7 L, RDW 16.6, Plt Count 145, MPV 9.6, Neut % (Auto) 88.7 H, Lymph % (Auto) 8.4 L, [place] % (Auto) 2.0, Eos % (Auto) 0.7, Baso % (Auto) 0.2, Neut # (Auto) 6.4, Lymph # (Auto) 0.6 L, [place] # (Auto) 0.2, Eos # (Auto) 0.1, Baso # (Auto) 0.0, Sodium 144, Potassium 3.3 L, Chloride 115 H, Carbon Dioxide 16 L, Anion Gap 16.3 H, BUN 21 H, Creatinine 0.60 L, Estimated Creat Clear 54, Estimated GFR 129, Est GFR ( Amer) 156, Glucose 138 H, Calcium 8.1 L 08/12/23 05:56: POC Glucose 123 H I & O for Labs for Last 24 Hours: Intake & Output 08/09/23 08/10/23 08/11/23 08/12/23 23:59 23:59 23:59 23:59 Intake Total 2462 / 3942 2125 / 2125 3498 / 3848 576 / 576 Output Total 2114 / 5 3150 / 3150 3200 / 3200 1270 / 1270 Balance 347 / 1827 -1025 / -1025 298 / 648 -694 / -694 Weight 67.17 kg 67.177 kg 67.268 kg 67.3 kg Microbiology Reports for the Last 24 Hours: Microbiology 08/08/23 17:00 Blood Blood Culture - Final Staphylococcus epidermidis The patient's infection will respond to the chosen ABx?: Yes (WBC = 7.3, AFEBRILE OVER 24 HRS, BLOOD CX = S. EPIDERMIDIS, 2ND CX PENDING) Is the patient receiving the right drug, dose, and route?: Yes Could a more targeted ABx be ordered?: No
[2023-08-12 07:55] LABS: Lymphocytes % 9 % (10-50); Neutrophils % 82 % (42-76); Total Cells Counted 100
[2023-08-12 07:58] LABS: Burr Cells 1+; Platelet Estimate Normal
[2023-08-12 07:59] LABS: Anisocytosis 1+; Poikilocytosis 1+; Tear Drop Cells 1+
--- NOTE | 2023-08-12 08:15 | EXP.PHA.CONS ---
Pharmacy Consult Date: 08/12/23 Time: 08:15 Referring provider: DR. ROBERTSON Reason for Consult:: VANCOMYCIN LEVEL Allergies Allergy/AdvReac Type Severity Reaction Status Date / Time sulfamethoxazole Allergy Unknown Unknown Verified 08/09/23 10:21 [From Bactrim] allergy reaction trimethoprim [From Bactrim] Allergy Unknown Unknown Verified 08/09/23 10:21 allergy reaction Home Medications Medication Instructions Recorded Confirmed Type gabapentin 100 mg capsule 100 mg PO TIDP PRN Shingles Pain 08/08/23 08/08/23 History levothyroxine 100 mcg tablet 100 mcg PO DAILY 08/08/23 08/08/23 History New Prescriptions to Start Prescriptions: Height: 1.83 m Weight: 67.3 kg Laboratory Results:: Laboratory Results - last 24 hr 08/11/23 10:22: POC Glucose 118 H 08/11/23 16:21: POC Glucose 138 H 08/11/23 19:52: Vancomycin Trough 11.4 H 08/11/23 20:21: POC Glucose 112 H 08/12/23 05:36: WBC 7.3, RBC 4.93, Hgb 14.4, Hct 45.3, MCV 91.9, MCH 29.1, MCHC 31.7 L, RDW 16.6, Plt Count 145, MPV 9.6, Neut % (Auto) 88.7 H, Lymph % (Auto) 8.4 L, [place] % (Auto) 2.0, Eos % (Auto) 0.7, Baso % (Auto) 0.2, Neut # (Auto) 6.4, Lymph # (Auto) 0.6 L, [place] # (Auto) 0.2, Eos # (Auto) 0.1, Baso # (Auto) 0.0, Total Counted 100, Neutrophils % (Manual) 82 H, Band Neutrophils % 8.0, Lymphocytes % (Manual) 9 L, Basophils % (Manual) 1.0, Platelet Estimate Normal, Poikilocytosis 1+, Anisocytosis 1+, Tear Drop Cells 1+, [place] Cells 1+, Sodium 144, Potassium 3.3 L, Chloride 115 H, Carbon Dioxide 16 L, Anion Gap 16.3 H, BUN 21 H, Creatinine 0.60 L, Estimated Creat Clear 54, Estimated GFR 129, Est GFR ( Amer) 156, Glucose 138 H, Calcium 8.1 L 08/12/23 05:56: POC Glucose 123 H Medical History: Medical History (Updated 08/09/23 @ 13:45 by YAZ Bains) Shingles Shingles (herpes zoster) polyneuropathy Diabetes Hypothyroid Assessment and Plan Assessment and plan all Dx Assessment and Plan for all problems:: PATIENT'S VANCOMYCIN TROUGH LEVEL WAS 11.4 MCG/ML OVERNIGHT. CONTINUE WITH CURRENT DOSE AND INTERVAL.
--- NOTE | 2023-08-12 08:31 | DIET.NUTRFU ---
Spoke to nursing, tolerating tubefeeding increased to 50ml/hr with goal rate at 60ml/hr. Nursing reported no signs of discomfort with TF. Upon visit patient had eyes open and some moaning. No BM noted, was NPO for 3 days prior to TF starting, will continue to monitor. Dextrose was discontinued will continue flush at 125ml A5S=569po with total fluid of 1623ml once at goal rate meeting 100%. Labs reviewed Na 144, K 3.3L, BUN 21, Cr 0.6 and BS 123. Will continue to monitor.
[2023-08-12] MEDS: CEFEPIME HCL 2 GM in 0.9 % SODIUM CHLORIDE 100 ML IV ×2 (10:04→20:31)
[2023-08-12] MEDS: ENOXAPARIN 40MG/0.4ML SYRINGE 40 MG SQ (10:05)
--- NOTE | 2023-08-12 11:59 | XR_ITS ---
FINAL REPORT CLINICAL HISTORY: SOB COMPARISON: 08/11/2023 FINDINGS: A single portable view of the chest was obtained. The heart size and pulmonary vascularity are within normal limits. The mediastinum is within normal limits. There are persistent bibasilar opacities present, worrisome for pneumonia. An NG tube is present with its tip below the left hemidiaphragm. The bony thorax is intact. IMPRESSION: Persistent bibasilar opacities are present, worrisome for pneumonia. Reviewed, Interpreted and Dictated by Uriel Miranda III, MD Transcribed by Jessica Pineda Authenticated and [facility]
--- NOTE | 2023-08-12 12:00 | EXP.PN ---
Subjective *Date: 08/12/23 *Time: 12:00 Interval history: Patient is opening eyes, more alert and awake today, however not following commands and appears lethargic Exam Data for Last 24 hours Vital signs and Labs for Last 24 Hours: Temp Pulse Resp BP Pulse Ox O2 Del Method O2 Flow Rate 97.6 F 111 H 22 106/70 L 98 Room Air 1 08/12/23 11:38 08/12/23 11:38 08/12/23 11:38 08/12/23 11:38 08/12/23 11:38 08/12/23 11:38 08/09/23 04:00 Laboratory Results - last 24 hr 08/11/23 16:21: POC Glucose 138 H 08/11/23 19:52: Vancomycin Trough 11.4 H 08/11/23 20:21: POC Glucose 112 H 08/12/23 05:36: WBC 7.3, RBC 4.93, Hgb 14.4, Hct 45.3, MCV 91.9, MCH 29.1, MCHC 31.7 L, RDW 16.6, Plt Count 145, MPV 9.6, Neut % (Auto) 88.7 H, Lymph % (Auto) 8.4 L, [place] % (Auto) 2.0, Eos % (Auto) 0.7, Baso % (Auto) 0.2, Neut # (Auto) 6.4, Lymph # (Auto) 0.6 L, [place] # (Auto) 0.2, Eos # (Auto) 0.1, Baso # (Auto) 0.0, Total Counted 100, Neutrophils % (Manual) 82 H, Band Neutrophils % 8.0, Lymphocytes % (Manual) 9 L, Basophils % (Manual) 1.0, Platelet Estimate Normal, Poikilocytosis 1+, Anisocytosis 1+, Tear Drop Cells 1+, [place] Cells 1+, Sodium 144, Potassium 3.3 L, Chloride 115 H, Carbon Dioxide 16 L, Anion Gap 16.3 H, BUN 21 H, Creatinine 0.60 L, Estimated Creat Clear 54, Estimated GFR 129, Est GFR ( Amer) 156, Glucose 138 H, Calcium 8.1 L 08/12/23 05:56: POC Glucose 123 H I & O for Last 24 hours: Intake & Output 08/09/23 08/10/23 08/11/23 05/17/24 23:59 23:59 23:59 23:59 Intake Total 2462 / 3942 2125 / 2125 3498 / 3848 1096 / 1096 Output Total 2114 / 2114 3150 / 3150 3200 / 3200 1270 / 1270 Balance 347 / 1827 -1025 / -1025 298 / 648 -174 / -174 Weight 67.17 kg 67.177 kg 67.268 kg 67.3 kg Microbiology Reports for the Last 24 Hours: Microbiology 08/08/23 17:00 Blood Blood Culture - Final Staphylococcus epidermidis Constitutional Constitutional: no acute distress *Routine HEENT Exam Head: Present normocephalic Eye: Present EOMI and PERRL ENT: Present mucous membranes moist *Routine Neck Exam Neck: Present supple; Absent lymphadenopathy *Routine Respiratory Exam Respiratory: Present CTA bilaterally *Routine Cardiovascular Exam Cardiovascular: Present RRR *Routine Abdominal Exam Abdominal: Present soft and normoactive bowel sounds; Absent tenderness *Routine Extremities Exam Extremities: Absent cyanosis, clubbing or edema *Routine Skin Exam Skin: Present warm; Absent rash *Routine Neurological Exam Neurological: Present alert and oriented X3 Assessment and Plan *Assessment and plan (1) Severe sepsis with acute organ dysfunction: Status: Acute Category: Medical Code(s): A41.9 - Sepsis, unspecified organism; R65.20 - Severe sepsis without septic shock (2) Encephalopathy, metabolic: Status: Acute Category: Medical Code(s): G93.41 - Metabolic encephalopathy (3) Acute cystitis: Status: Acute Qualifiers: Hematuria presence: without hematuria Qualified Code(s): N30.00 - Acute cystitis without hematuria Category: Medical Code(s): N30.00 - Acute cystitis without hematuria (4) Hypothyroid: Status: Acute Qualifiers: Hypothyroidism type: acquired Qualified Code(s): E03.9 - Hypothyroidism, unspecified Category: Medical Code(s): E03.9 - Hypothyroidism, unspecified (5) Pneumonia: Status: Acute Qualifiers: Pneumonia type: due to unspecified organism Laterality: right Lung location: lower lobe of lung Qualified Code(s): J18.9 - Pneumonia, unspecified organism Category: Medical Code(s): J18.9 - Pneumonia, unspecified organism (6) Fracture of rib of right side: Status: Acute Qualifiers: Encounter type: initial encounter Rib fracture type: multiple ribs Fracture type: closed Qualified Code(s): S22.41XA - Multiple fractures of ribs, right side, initial encounter for closed fracture Category: Medical Code(s): S22.31XA - Fracture of one rib, right side, initial encounter for closed fracture (7) Rhabdomyolysis: Status: Acute Qualifiers: Rhabdomyolysis type: traumatic Encounter type: initial encounter Qualified Code(s): T79.6XXA - Traumatic ischemia of muscle, initial encounter Category: Medical Code(s): M62.82 - Rhabdomyolysis (8) Transaminitis: Status: Acute Category: Medical Code(s): R74.01 - Elevation of levels of liver transaminase levels (9) NSTEMI (non-ST elevated myocardial infarction): Status: Acute Category: Medical Code(s): I21.4 - Non-ST elevation (NSTEMI) myocardial infarction Plan #Severe sepsis with organ dysfunction continue IV fluids,tube feeding Continue Vancomycin and cefepime Legionella, MRSA and sputum culture pending repeat blood cultures, earlier cultures growing staph epidermidis #Metabolic encephalopathy - improving Unknown baseline, no family at bedside to provide collateral Likely secondary to acute infection. May be element severe hypothyroidism causing myexadema coma like symptoms Some improvement in mental status noted after admission. #Pneumonia #Right rib fractures Pneumonia likely sympathetic to right rib fractures given location Currently oxygenating well on room air Sputum culture pending Blood cultures pending Continue broad-spectrum antibiotic coverage #Anion Gap Acidosis likely secondary to dehydration, sepsis and trauma Continue MIVF Renal funciton stable #Traumatic rhabdomyolysis #TransaminitisCPK has improved Continue aggressive hydration Adames catheter for strict intake and output monitor CK level # Hypothyroidism Patient with known hypothyroidism with a TSH today of 21 Patient received 200 mcg of levothyroxine IV on admission Continue 100 mcg IV daily, transition to oral once able to take p.o. #Acute cystitis Urinalysis with only nitrite positive but given patient's altered mental status will continue antibiotics. Currently on broad-spectrum antibiotics #T2DM ISS, monitor #NSTEMI DVT PPx Lovenox Full code continue IV abx and IV fluids, monitor CBC, BMP, started on feeding tube, family is interested in hospice if no improvement after treatment
[2023-08-12] MEDS: ACETAMINOPHEN 325MG TAB 650 MG G-TUBE ×2 (12:36→23:54)
[2023-08-12 12:50] LABS: POC Glucose,Bedside 157 (70-110)
--- NOTE | 2023-08-12 16:19 | PC.NURSE ---
Pt has tolerated titration of Jevity from 40 ml to 50 ml/hr. He was medicated with tylenol during shift X 1 which was effective for discomfort/signs of pain, moaning and grimacing. Pt has slept most of the afternoon. No visitors today
[2023-08-12 19:21] LABS: POC Glucose,Bedside 119 (70-110)
[2023-08-12] MEDS: VANCOMYCIN/WATER FOR INJ (PEG) 1.25 GM/250 ML PIGGYBACK IV (20:23)
[2023-08-12] MEDS: PANTOPRAZOLE 40MG VIAL 40 MG IV (20:24)
[2023-08-13] VITALS (7 sets, daily range): BP systolic 94–118; BP diastolic 58–68; PULSE 70–85; RESP 18–24; TEMP 35.7–37; O2SAT 96–100; BMI 19.8
[2023-08-13] MEDS: DOXYCYCLINE HYCLATE 100 MG in 0.9 % SODIUM CHLORIDE 250 ML 166.667000000000002 MG IV (04:35)
[2023-08-13 05:43] LABS: POC Glucose,Bedside 125 (70-110)
[2023-08-13] MEDS: LEVOTHYROXINE SODIUM 100 MCG VIAL IV (06:08)
[2023-08-13 07:59] LABS: Legionella pneumophila Abs. Non Reactive (Non Reactive)
[2023-08-13] MEDS: ENOXAPARIN 40MG/0.4ML SYRINGE 40 MG SQ (08:22)
[2023-08-13] MEDS: CEFEPIME HCL 2 GM in 0.9 % SODIUM CHLORIDE 100 ML IV (08:34)
[2023-08-13 08:43] LABS: Blood Urea Nitrogen 27 mg/dl (9-20); Calcium 8.2 mg/dl (8.4-10.2); Carbon Dioxide 19 mmol/L (22.0-30.0); Chloride 117 mmol/L (98-107); Creatinine Clearance Estimated 54 mL/min (50-200); Estimated Glomerular Filt Rate 159 ml/min (>60); GFR (African American) 193 ML/MIN (>60); Glucose 99 mg/dl (74-100); Sodium 146 mmol/L (136-145)
[2023-08-13 08:52] LABS: Basophils % 0.7 % (0.1-2.0); Eosinophils # 0.1 K/mm3 (0.0-0.4); Eosinophils % 1.2 % (0.1-12.0); Hematocrit 50.4 % (42.0-52.0); Hemoglobin 15.9 g/dL (14.1-18.0); Lymphocytes # 0.4 K/mm3 (0.7-4.5); Lymphocytes % 7.7 % (10-50); Mean Corpuscular HGB Conc 31.6 g/dL (31.8-35.4); Mean Platelet Volume 10.7 fl (7.4-10.4); Monocytes # 0.1 K/mm3 (0.1-1.0); Monocytes % 1.9 % (1.7-9.3); Neutrophils # 4.7 K/mm3 (1.8-7.8); Neutrophils % 88.4 % (37.0-80.0); Platelet Count 105 K/mm3 (142-424); Red Blood Count 5.48 M/mm3 (4.60-6.20); Red Cell Distribution Width 16.8 % (11.5-17.5); White Blood Count 5.3 K/mm3 (4.8-10.8)
[2023-08-13 08:57] LABS: MANUAL DIFFERENTIAL MANUAL DIFFERENTIAL (MANUAL DIFF)
[2023-08-13 10:17] LABS: Eosinophils % 1 % (0-3); Lymphocytes % 8 % (10-50); Monocytes % 1 % (2-9); Neutrophils % 90 % (42-76); Total Cells Counted 100
[2023-08-13 10:19] LABS: Platelet Estimate Moderate Decrease; RBC Morphology Normal
--- NOTE | 2023-08-13 10:29 | XR_ITS ---
PROCEDURE INFORMATION: Exam: XR Chest Exam date and time: 08/13/2023 11:00 AM Age: 83 years old Clinical indication: Other: Aspiration TECHNIQUE: Imaging protocol: Radiologic exam of the chest. Views: 1 view. COMPARISON: CR XR CHEST PORTABLE 08/12/2023 12:08 PM FINDINGS: Tubes, catheters and devices: NG tube coursing into the stomach below the field of view. Lungs: Redemonstration of ill-defined infiltrate right lower lobe progressed from previous exam as well as cyst patchy bronchiolitis left lower lobe more apparent on the current study consistent with history of aspiration. Upper lung zones remain relatively clear. Pleural spaces: Unremarkable. No pleural effusion. No pneumothorax. Heart/Mediastinum: Large calcified mediastinal lymph node redemonstrated. Heart is not enlarged. Bones/joints: Unremarkable for age. IMPRESSION: Progressive bilateral lower lobe opacities more pronounced on the right consistent with history of recent aspiration.
[2023-08-13 11:24] LABS: MRSA DNA PCR Negative
[2023-08-13 11:26] LABS: POC Glucose,Bedside 128 (70-110)
--- NOTE | 2023-08-13 13:07 | ECG_ITS ---
APPROVED REPORT Exam: Resting ECG HR:77 bpm ECG Measurements Heart Rate 77 AXES MA 171 P 77 QRSd 89 QRS 81 QT 380 T 80 QTc 412 Conclusion SINUS RHYTHM SEPTAL MYOCARDIAL INFARCTION , OF INDETERMINATE AGE [40+ ms Q WAVE IN V1/V2] ABNORMAL ECG UNCONFIRMED REPORT Electronically signed by : KULWINDER MÁRQUEZ, 08/14/2023 03:30:44
[2023-08-13 13:26] LABS: Chloride 119 mmol/L (98-107); Sodium 145 mmol/L (136-145)
[2023-08-13 13:27] LABS: Potassium 3.2 mmoL/L (3.5-5.1)
[2023-08-13 13:30] LABS: Anion Gap 10.2 mEq/L (5-15); Blood Urea Nitrogen 27 mg/dl (9-20); Calcium 8.3 mg/dl (8.4-10.2); Carbon Dioxide 19 mmol/L (22.0-30.0); Creatinine Clearance Estimated 54 mL/min (50-200); Estimated Glomerular Filt Rate 159 ml/min (>60); GFR (African American) 193 ML/MIN (>60); Glucose 112 mg/dl (74-100)
[2023-08-13 13:42] LABS: Troponin I 0.01 ng/ml (0.00-0.034)
--- NOTE | 2023-08-13 15:15 | EXP.PN ---
Subjective *Date: 08/13/23 *Time: 15:15 Interval history: Patient is opening eyes, more alert and awake today than yesterday, he reportedly has 150ml residual fluid from TF, patient however not following commands and appears lethargic Exam Data for Last 24 hours Vital signs and Labs for Last 24 Hours: Temp Pulse Resp BP Pulse Ox O2 Del Method O2 Flow Rate 96.3 F L 80 22 94/65 L 100 Room Air 1 08/13/23 11:34 08/13/23 12:00 08/13/23 11:34 08/13/23 11:34 08/13/23 11:34 08/13/23 13:00 08/09/23 04:00 Laboratory Results - last 24 hr 08/09/23 05:39: Legionella pneumophila Ab Non reactive 08/09/23 10:36: MRSA (PCR) Negative 08/12/23 19:13: POC Glucose 119 H 08/13/23 05:35: POC Glucose 125 H 08/13/23 06:45: WBC 5.3 D, RBC 5.48, Hgb 15.9, Hct 50.4, MCV 92.0, MCH 29.0, MCHC 31.6 L, RDW 16.8, Plt Count 105 L D, MPV 10.7 H, Neut % (Auto) 88.4 H, Lymph % (Auto) 7.7 L, [place] % (Auto) 1.9, Eos % (Auto) 1.2, Baso % (Auto) 0.7, Neut # (Auto) 4.7, Lymph # (Auto) 0.4 L, [place] # (Auto) 0.1, Eos # (Auto) 0.1, Baso # (Auto) 0.0, Total Counted 100, Neutrophils % (Manual) 90 H, Lymphocytes % (Manual) 8 L, Monocytes % (Manual) 1 L, Eosinophils % (Manual) 1, Platelet Estimate Moderate decrease, RBC Morphology Normal, Sodium 146 H, Potassium 3.0 L, Chloride 117 H, Carbon Dioxide 19 L, Anion Gap 13.0, BUN 27 H D, Creatinine 0.50 L, Estimated Creat Clear 54, Estimated GFR 159, Est GFR ( Amer) 193 D, Glucose 99, Calcium 8.2 L 08/13/23 11:18: POC Glucose 128 H 05/18/24 13:15: Sodium 145, Potassium 3.2 L, Chloride 119 H, Carbon Dioxide 19 L, Anion Gap 10.2, BUN 27 H, Creatinine 0.50 L, Estimated Creat Clear 54, Estimated GFR 159, Est GFR ( Amer) 193, Glucose 112 H, Calcium 8.3 L, Magnesium 2.0, Troponin I 0.01 I & O for Last 24 hours: Intake & Output 08/10/23 08/11/23 08/12/23 08/13/23 23:59 23:59 23:59 23:59 Intake Total 2125 / 2125 3498 / 3848 1469 / 2223 754 / 754 Output Total 3150 / 3150 3200 / 3200 1520 / 2170 875 / 875 Balance -1025 / -1025 298 / 648 -51 / 53 -121 / -121 Weight 67.177 kg 67.268 kg 67.3 kg 66.633 kg Constitutional Constitutional: no acute distress *Routine HEENT Exam Head: Present normocephalic Eye: Present EOMI and PERRL ENT: Present mucous membranes moist *Routine Neck Exam Neck: Present supple; Absent lymphadenopathy *Routine Respiratory Exam Respiratory: Present CTA bilaterally *Routine Cardiovascular Exam Cardiovascular: Present RRR *Routine Abdominal Exam Abdominal: Present soft and normoactive bowel sounds; Absent tenderness *Routine Extremities Exam Extremities: Absent cyanosis, clubbing or edema *Routine Skin Exam Skin: Present warm; Absent rash *Routine Neurological Exam Neurological: Present alert Comments: AxA x 0 Assessment and Plan *Assessment and plan (1) Severe sepsis with acute organ dysfunction: Status: Acute Category: Medical Code(s): A41.9 - Sepsis, unspecified organism; R65.20 - Severe sepsis without septic shock (2) Encephalopathy, metabolic: Status: Acute Category: Medical Code(s): G93.41 - Metabolic encephalopathy (3) Acute cystitis: Status: Acute Qualifiers: Hematuria presence: without hematuria Qualified Code(s): N30.00 - Acute cystitis without hematuria Category: Medical Code(s): N30.00 - Acute cystitis without hematuria (4) Hypothyroid: Status: Acute Qualifiers: Hypothyroidism type: acquired Qualified Code(s): E03.9 - Hypothyroidism, unspecified Category: Medical Code(s): E03.9 - Hypothyroidism, unspecified (5) Pneumonia: Status: Acute Qualifiers: Pneumonia type: due to unspecified organism Laterality: right Lung location: lower lobe of lung Qualified Code(s): J18.9 - Pneumonia, unspecified organism Category: Medical Code(s): J18.9 - Pneumonia, unspecified organism (6) Fracture of rib of right side: Status: Acute Qualifiers: Encounter type: initial encounter Rib fracture type: multiple ribs Fracture type: closed Qualified Code(s): S22.41XA - Multiple fractures of ribs, right side, initial encounter for closed fracture Category: Medical Code(s): S22.31XA - Fracture of one rib, right side, initial encounter for closed fracture (7) Rhabdomyolysis: Status: Acute Qualifiers: Rhabdomyolysis type: traumatic Encounter type: initial encounter Qualified Code(s): T79.6XXA - Traumatic ischemia of muscle, initial encounter Category: Medical Code(s): M62.82 - Rhabdomyolysis (8) Transaminitis: Status: Acute Category: Medical Code(s): R74.01 - Elevation of levels of liver transaminase levels (9) NSTEMI (non-ST elevated myocardial infarction): Status: Acute Category: Medical Code(s): I21.4 - Non-ST elevation (NSTEMI) myocardial infarction Plan #Severe sepsis with organ dysfunction continue IV fluids,tube feeding Continue Vancomycin and cefepime Legionella, MRSA and sputum culture pending repeat blood cultures, earlier cultures growing staph epidermidis #Metabolic encephalopathy - improving Unknown baseline, no family at bedside to provide collateral Likely secondary to acute infection. May be element severe hypothyroidism causing myexadema coma like symptoms Some improvement in mental status noted after admission. #Pneumonia #Right rib fractures Aspiration PNA likely tube feeding aspiration on top of already existing PNA Currently oxygenating well on room air Sputum culture pending Blood cultures pending Continue broad-spectrum antibiotic coverage with vancomycina and zosyn #Anion Gap Acidosis likely secondary to dehydration, sepsis and trauma Continue MIVF Renal funciton stable #Traumatic rhabdomyolysis #TransaminitisCPK has improved Continue aggressive hydration Adames catheter for strict intake and output monitor CK level # Hypothyroidism Patient with known hypothyroidism with a TSH today of 21 Patient received 200 mcg of levothyroxine IV on admission Continue 100 mcg IV daily, transition to oral once able to take p.o. #Acute cystitis Urinalysis with only nitrite positive but given patient's altered mental status will continue antibiotics. Currently on broad-spectrum antibiotics #T2DM ISS, monitor #NSTEMI DVT PPx Lovenox Full code Continue broad-spectrum antibiotic coverage with vancomycina and zosyn , monitor CBC, BMP, Hold feeding tube due to aspiration, family is interested in hospice if no improvement after treatment
[2023-08-13] MEDS: PIPERACILLIN/TAZO 3.375 GM in 0.9 % SODIUM CHLORIDE 50 ML IV ×2 (15:19→20:27)
[2023-08-13] MEDS: KCl 10mEq/100ml 100 ML 100 MEQ IV ×3 (16:29→19:04)
[2023-08-13 17:51] LABS: POC Glucose,Bedside 112 (70-110)
--- NOTE | 2023-08-13 18:39 | PC.NURSE ---
PT HAS BEEN MOSTLY OBTUNDED THIS SHIFT. Q2 TURN AND ORAL CARE. TUBE FEEDS WERE HELD THIS MORNING R/T POTENTIAL ASPIRATION (SEE PROVIDER NOTIFICATION). FAMILY DID COME TO VISIT PATIENT TODAY. O2 SATS HAVE REMAINED STABLE ON ROOM AIR.
[2023-08-13] MEDS: PANTOPRAZOLE 40MG VIAL 40 MG IV (20:27)
[2023-08-13] MEDS: VANCOMYCIN/WATER FOR INJ (PEG) 1.25 GM/250 ML PIGGYBACK IV (20:28)
[2023-08-14] VITALS (9 sets, daily range): BP systolic 96–106; BP diastolic 53–65; PULSE 60–80; RESP 16–22; TEMP 36.2–37; O2SAT 96–100
[2023-08-14] MEDS: PIPERACILLIN/TAZO 3.375 GM in 0.9 % SODIUM CHLORIDE 50 ML IV ×4 (03:13→20:38)
[2023-08-14 03:26] LABS: POC Glucose,Bedside 85 (70-110)
[2023-08-14 03:26] LABS: POC Glucose,Bedside 92 (70-110)
[2023-08-14] MEDS: LEVOTHYROXINE SODIUM 100 MCG VIAL IV (06:22)
[2023-08-14] MEDS: ENOXAPARIN 40MG/0.4ML SYRINGE 40 MG SQ (08:37)
--- NOTE | 2023-08-14 08:50 | PC.NURSE ---
Consulted about low platelets. okayed to go ahead and give Lovenox
--- NOTE | 2023-08-14 10:20 | PC.NURSE ---
Addendum entered by Opal Ayala RN 08/14/23 10:28: NICOLA ARROYO Original Note: Pt following commands this AM. Alert to self. Pt followed commands of sticking his tongue out and coughing etc. Bedside swallow was obtained. Pt passed.Pt will be placed on full liquid diet.
[2023-08-14 11:16] LABS: POC Glucose,Bedside 101 (70-110)
--- NOTE | 2023-08-14 16:07 | EXP.PN ---
Subjective *Date: 08/14/23 *Time: 16:07 Interval history: seen at bedside, he is more awake and making sounds and can say his name however not following commands Exam Data for Last 24 hours Vital signs and Labs for Last 24 Hours: Temp Pulse Resp BP Pulse Ox O2 Del Method O2 Flow Rate 98.2 F 76 16 96/65 L 96 Room Air 1 08/14/23 15:40 08/14/23 15:40 08/14/23 15:40 08/14/23 15:40 08/14/23 15:40 08/14/23 15:40 08/09/23 04:00 Laboratory Results - last 24 hr 08/13/23 17:43: POC Glucose 112 H 08/13/23 21:41: POC Glucose 85 08/14/23 03:18: POC Glucose 92 08/14/23 11:03: POC Glucose 101 I & O for Last 24 hours: Intake & Output 08/11/23 08/12/23 08/13/23 08/14/23 23:59 23:59 23:59 23:59 Intake Total 3498 / 3848 1469 / 2223 754 / 754 840 / 840 Output Total 3200 / 3200 1520 / 2170 875 / 875 700 / 700 Balance 298 / 648 -51 / 53 -121 / -121 140 / 140 Weight 67.268 kg 67.3 kg 66.633 kg 67.313 kg Constitutional Constitutional: no acute distress *Routine HEENT Exam Head: Present normocephalic Eye: Present EOMI and PERRL ENT: Present mucous membranes moist *Routine Neck Exam Neck: Present supple; Absent lymphadenopathy *Routine Respiratory Exam Respiratory: Present CTA bilaterally *Routine Cardiovascular Exam Cardiovascular: Present RRR *Routine Abdominal Exam Abdominal: Present soft and normoactive bowel sounds; Absent tenderness *Routine Extremities Exam Extremities: Absent cyanosis, clubbing or edema *Routine Skin Exam Skin: Present warm; Absent rash *Routine Neurological Exam Neurological: Present alert Comments: AxA x 0 Assessment and Plan *Assessment and plan (1) Severe sepsis with acute organ dysfunction: Status: Acute Category: Medical Code(s): A41.9 - Sepsis, unspecified organism; R65.20 - Severe sepsis without septic shock (2) Encephalopathy, metabolic: Status: Acute Category: Medical Code(s): G93.41 - Metabolic encephalopathy (3) Acute cystitis: Status: Acute Qualifiers: Hematuria presence: without hematuria Qualified Code(s): N30.00 - Acute cystitis without hematuria Category: Medical Code(s): N30.00 - Acute cystitis without hematuria (4) Hypothyroid: Status: Acute Qualifiers: Hypothyroidism type: acquired Qualified Code(s): E03.9 - Hypothyroidism, unspecified Category: Medical Code(s): E03.9 - Hypothyroidism, unspecified (5) Pneumonia: Status: Acute Qualifiers: Pneumonia type: due to unspecified organism Laterality: right Lung location: lower lobe of lung Qualified Code(s): J18.9 - Pneumonia, unspecified organism Category: Medical Code(s): J18.9 - Pneumonia, unspecified organism (6) Fracture of rib of right side: Status: Acute Qualifiers: Encounter type: initial encounter Rib fracture type: multiple ribs Fracture type: closed Qualified Code(s): S22.41XA - Multiple fractures of ribs, right side, initial encounter for closed fracture Category: Medical Code(s): S22.31XA - Fracture of one rib, right side, initial encounter for closed fracture (7) Rhabdomyolysis: Status: Acute Qualifiers: Rhabdomyolysis type: traumatic Encounter type: initial encounter Qualified Code(s): T79.6XXA - Traumatic ischemia of muscle, initial encounter Category: Medical Code(s): M62.82 - Rhabdomyolysis (8) Transaminitis: Status: Acute Category: Medical Code(s): R74.01 - Elevation of levels of liver transaminase levels (9) NSTEMI (non-ST elevated myocardial infarction): Status: Acute Category: Medical Code(s): I21.4 - Non-ST elevation (NSTEMI) myocardial infarction Plan #Severe sepsis with organ dysfunction continue IV fluids, tube feeding Continue Vancomycin and cefepime Legionella, MRSA and sputum culture pending repeat blood cultures, earlier cultures growing staph epidermidis #Metabolic encephalopathy - improving Unknown baseline, no family at bedside to provide collateral Likely secondary to acute infection. May be element severe hypothyroidism causing myexadema coma like symptoms Some improvement in mental status noted after admission. #Pneumonia #Right rib fractures Aspiration PNA likely tube feeding aspiration on top of already existing PNA Currently oxygenating well on room air Sputum culture pending Blood cultures pending Continue broad-spectrum antibiotic coverage with vancomycina and zosyn #Anion Gap Acidosis likely secondary to dehydration, sepsis and trauma Continue MIVF Renal funciton stable #Traumatic rhabdomyolysis #TransaminitisCPK has improved Continue aggressive hydration Adames catheter for strict intake and output monitor CK level # Hypothyroidism Patient with known hypothyroidism with a TSH today of 21 Patient received 200 mcg of levothyroxine IV on admission Continue 100 mcg IV daily, transition to oral once able to take p.o. #Acute cystitis Urinalysis with only nitrite positive but given patient's altered mental status will continue antibiotics. Currently on broad-spectrum antibiotics #T2DM ISS, monitor #NSTEMI DVT PPx Lovenox Full code Continue broad-spectrum antibiotic coverage with vancomycina and zosyn, monitor CBC, BMP, Hold feeding tube due to aspiration, family is interested in hospice if no improvement after treatment continue to mon itor CBC, BMP
--- NOTE | 2023-08-14 17:44 | PC.NURSE ---
Patient alert to self only. Adames in place and draining dark yellow urine. Passed bedside swallow. NG tube discontinued. Continuous pulse ox discontinued. Tolerated full liquid diet at lunch well and advanced to soft mechanical diet for dinner. Slow to swallow food and drink. IV in [place] discontinued due to swelling. New 20g IV placed in right forearm. Patient tolerated well. Family (cousin), neighbor and a alevism friend came to visit patient today.
[2023-08-14] MEDS: PANTOPRAZOLE 40MG VIAL 40 MG IV (20:38)
[2023-08-14] MEDS: SODIUM CHLORIDE 0.9% 10ML VIAL 10 ML IV (20:38)
[2023-08-14] MEDS: VANCOMYCIN/WATER FOR INJ (PEG) 1.25 GM/250 ML PIGGYBACK IV (21:36)
[2023-08-15] VITALS (9 sets, daily range): BP systolic 82–96; BP diastolic 48–62; PULSE 70–80; RESP 16–20; TEMP 36.3–37; O2SAT 96–97; BMI 20.4
--- NOTE | 2023-08-15 01:14 | PC.NURSE ---
Contacted BETH GEORGE at this time with reports of BP 82/48. orsers to continue to monitor BP at this time.
[2023-08-15] MEDS: PIPERACILLIN/TAZO 3.375 GM in 0.9 % SODIUM CHLORIDE 50 ML IV ×4 (02:28→20:57)
--- NOTE | 2023-08-15 04:51 | PC.NURSE ---
pt is alert to self and currently tolerating RA well. Pt pressure areas have been redressed this shift and look to be improving considering admission wound photos. Pt received a BB and has been repositioned Q2 hr this shift with no complaints.
[2023-08-15] MEDS: LEVOTHYROXINE SODIUM 100 MCG VIAL IV (06:10)
[2023-08-15] MEDS: SODIUM CHLORIDE 0.9% 10ML VIAL 10 ML IV ×2 (06:10→20:05)
[2023-08-15 07:31] LABS: Basophils % 0.9 % (0.1-2.0); Eosinophils # 0.1 K/mm3 (0.0-0.4); Hematocrit 39.5 % (42.0-52.0); Hemoglobin 12.8 g/dL (14.1-18.0); Lymphocytes # 0.9 K/mm3 (0.7-4.5); Mean Corpuscular HGB Conc 32.5 g/dL (31.8-35.4); Mean Corpuscular Hemoglobin 29.4 pg (27.0-31.2); Mean Corpuscular Volume 90.3 fl (80-94); Monocytes # 0.2 K/mm3 (0.1-1.0); Monocytes % 4.6 % (1.7-9.3); Neutrophils # 3.3 K/mm3 (1.8-7.8); Neutrophils % 73.4 % (37.0-80.0); Platelet Count 105 K/mm3 (142-424); Red Blood Count 4.37 M/mm3 (4.60-6.20); Red Cell Distribution Width 16.8 % (11.5-17.5); White Blood Count 4.5 K/mm3 (4.8-10.8)
[2023-08-15 07:42] LABS: Anion Gap 8.4 mEq/L (5-15); Blood Urea Nitrogen 19 mg/dl (9-20); Calcium 8.6 mg/dl (8.4-10.2); Carbon Dioxide 23 mmol/L (22.0-30.0); Chloride 116 mmol/L (98-107); Creatinine Clearance Estimated 55 mL/min (50-200); Estimated Glomerular Filt Rate 159 ml/min (>60); GFR (African American) 193 ML/MIN (>60); Glucose 108 mg/dl (74-100); Potassium 3.4 mmoL/L (3.5-5.1); Sodium 144 mmol/L (136-145)
--- NOTE | 2023-08-15 09:20 | DIET.NUTRFU ---
TF was discontinued over weekend secondary to possible aspiration with 150ml residuals. Patient passed bedside swallow study with MSOFT, thin liquids. Nursing is noting total dependence on staff for meals. He is noted to be more alert able to say his name. Meal intake has been poor, started ensure with all trays for additional calories and protein. Labs reviewed potassium 3.4L, BS well controlled. Noted to have severe diarrhea on 08/12 with 5 BM noted. Urine output only 700ml yesterday. Na 144, may need IVF restarted if oral intake does not meet hydration needs.
--- NOTE | 2023-08-15 17:40 | PC.NURSE ---
pt was only able to state his name on initial assessment. he has been up to chair at bs for a couple of hrs. pt was more alert in the middle of the day, talking about going to [employer] and saying he wants a haircut. call jackman within reach, no needs at this time
--- NOTE | 2023-08-15 18:06 | P.PN_ITS ---
Subjective *Date: 08/15/23 *Time: 18:06 Interval history: seen at bedside, he is more awake and making sounds and can say his name however not following commands, he is speaking up words randomly which is a improvement from yesterday Exam Data for Last 24 hours Vital signs and Labs for Last 24 Hours: Temp Pulse Resp BP Pulse Ox O2 Del Method O2 Flow Rate 97.5 F L 73 18 93/59 L 96 Room Air 1 08/15/23 16:00 08/15/23 16:00 08/15/23 16:00 08/15/23 16:00 08/15/23 16:00 08/15/23 16:57 08/09/23 04:00 Laboratory Results - last 24 hr 08/15/23 07:02: WBC 4.5 L, RBC 4.37 L, Hgb 12.8 L, Hct 39.5 L, MCV 90.3, MCH 29.4, MCHC 32.5, RDW 16.8, Plt Count 105 L, MPV 10.0, Neut % (Auto) 73.4, Lymph % (Auto) 19.0, [place] % (Auto) 4.6, Eos % (Auto) 2.0, Baso % (Auto) 0.9, Neut # (Auto) 3.3, Lymph # (Auto) 0.9, [place] # (Auto) 0.2, Eos # (Auto) 0.1, Baso # (Auto) 0.0, Sodium 144, Potassium 3.4 L, Chloride 116 H, Carbon Dioxide 23, Anion Gap 8.4, BUN 19 D, Creatinine 0.50 L, Estimated Creat Clear 55, Estimated GFR 159, Est GFR ( Amer) 193, Glucose 108 H, Calcium 8.6 I & O for Last 24 hours: Intake & Output 08/12/23 08/13/23 08/14/23 08/15/23 23:59 23:59 23:59 23:59 Intake Total 1469 / 2223 754 / 754 1200 / 1200 135 / 135 Output Total 1520 / 2170 875 / 875 700 / 700 500 / 500 Balance -51 / 53 -121 / -121 500 / 500 -365 / -365 Weight 67.3 kg 66.633 kg 67.313 kg 68.356 kg Constitutional Constitutional: no acute distress *Routine HEENT Exam Head: Present normocephalic Eye: Present EOMI and PERRL ENT: Present mucous membranes moist *Routine Neck Exam Neck: Present supple; Absent lymphadenopathy *Routine Respiratory Exam Respiratory: Present CTA bilaterally *Routine Cardiovascular Exam Cardiovascular: Present RRR *Routine Abdominal Exam Abdominal: Present soft and normoactive bowel sounds; Absent tenderness *Routine Extremities Exam Extremities: Absent cyanosis, clubbing or edema *Routine Skin Exam Skin: Present warm; Absent rash *Routine Neurological Exam Neurological: Present alert Comments: AxA x 0 Assessment and Plan *Assessment and plan (1) Severe sepsis with acute organ dysfunction: Status: Acute Category: Medical Code(s): A41.9 - Sepsis, unspecified organism; R65.20 - Severe sepsis without septic shock (2) Encephalopathy, metabolic: Status: Acute Category: Medical Code(s): G93.41 - Metabolic encephalopathy (3) Acute cystitis: Status: Acute Qualifiers: Hematuria presence: without hematuria Qualified Code(s): N30.00 - Acute cystitis without hematuria Category: Medical Code(s): N30.00 - Acute cystitis without hematuria (4) Hypothyroid: Status: Acute Qualifiers: Hypothyroidism type: acquired Qualified Code(s): E03.9 - Hypothyroidism, unspecified Category: Medical Code(s): E03.9 - Hypothyroidism, unspecified (5) Pneumonia: Status: Acute Qualifiers: Pneumonia type: due to unspecified organism Laterality: right Lung location: lower lobe of lung Qualified Code(s): J18.9 - Pneumonia, unspecified organism Category: Medical Code(s): J18.9 - Pneumonia, unspecified organism (6) Fracture of rib of right side: Status: Acute Qualifiers: Encounter type: initial encounter Rib fracture type: multiple ribs Fracture type: closed Qualified Code(s): S22.41XA - Multiple fractures of ribs, right side, initial encounter for closed fracture Category: Medical Code(s): S22.31XA - Fracture of one rib, right side, initial encounter for closed fracture (7) Rhabdomyolysis: Status: Acute Qualifiers: Rhabdomyolysis type: traumatic Encounter type: initial encounter Qualified Code(s): T79.6XXA - Traumatic ischemia of muscle, initial encounter Category: Medical Code(s): M62.82 - Rhabdomyolysis (8) Transaminitis: Status: Acute Category: Medical Code(s): R74.01 - Elevation of levels of liver transaminase levels (9) NSTEMI (non-ST elevated myocardial infarction): Status: Acute Category: Medical Code(s): I21.4 - Non-ST elevation (NSTEMI) myocardial infarction Plan #Severe sepsis with organ dysfunction discontinue IV fluids, tube feeding Continue Vancomycin and cefepime Legionella, MRSA and sputum culture pending repeat blood cultures, earlier cultures growing staph epidermidis #Metabolic encephalopathy - improving Unknown baseline, no family at bedside to provide collateral Likely secondary to acute infection. May be element severe hypothyroidism causing myexadema coma like symptoms Some improvement in mental status noted after admission. #Pneumonia #Right rib fractures Aspiration PNA likely tube feeding aspiration on top of already existing PNA Currently oxygenating well on room air Sputum culture pending Blood cultures pending Continue broad-spectrum antibiotic coverage with vancomycina and zosyn #Anion Gap Acidosis likely secondary to dehydration, sepsis and trauma Continue MIVF Renal funciton stable #Traumatic rhabdomyolysis #TransaminitisCPK has improved Continue aggressive hydration Adames catheter for strict intake and output monitor CK level # Hypothyroidism Patient with known hypothyroidism with a TSH today of 21 Patient received 200 mcg of levothyroxine IV on admission Continue 100 mcg IV daily, transition to oral once able to take p.o. #Acute cystitis Urinalysis with only nitrite positive but given patient's altered mental status will continue antibiotics. Currently on broad-spectrum antibiotics #T2DM ISS, monitor #NSTEMI DVT PPx Lovenox Full code Continue broad-spectrum antibiotic coverage with vancomycina and zosyn, monitor CBC, BMP, family is interested in hospice if no improvement after treatment continue to mon itor CBC, BMP may need LTR at [facility]
[2023-08-15] MEDS: PANTOPRAZOLE 40MG VIAL 40 MG IV (20:05)
[2023-08-15] MEDS: PHA TO NURSING INSTRUCTION 1 EACH NOTAPPLIC (20:10)
[2023-08-15 20:47] LABS: Vancomycin,Trough 13.9 ug/mL (5.0-10.0)
--- NOTE | 2023-08-15 20:59 | PC.NURSE ---
pharmacy notified of vanc trough at this time. stated to give scheduled dose
[2023-08-15] MEDS: VANCOMYCIN/WATER FOR INJ (PEG) 1.25 GM/250 ML PIGGYBACK IV (21:25)
[2023-08-16] VITALS (7 sets, daily range): BP systolic 96–139; BP diastolic 60–72; PULSE 67–82; RESP 15–20; TEMP 35.8–36.9; O2SAT 95–98; BMI 20.5
[2023-08-16] MEDS: PIPERACILLIN/TAZO 3.375 GM in 0.9 % SODIUM CHLORIDE 50 ML IV ×2 (02:33→08:27)
[2023-08-16] MEDS: LEVOTHYROXINE SODIUM 100 MCG VIAL IV (06:03)
[2023-08-16 07:51] LABS: Basophils # 0.1 K/mm3 (0-0.2); Eosinophils # 0.1 K/mm3 (0.0-0.4); Eosinophils % 1.4 % (0.1-12.0); Hematocrit 39.8 % (42.0-52.0); Hemoglobin 12.5 g/dL (14.1-18.0); Lymphocytes # 1.1 K/mm3 (0.7-4.5); Lymphocytes % 18.3 % (10-50); Mean Corpuscular HGB Conc 31.5 g/dL (31.8-35.4); Mean Corpuscular Hemoglobin 28.9 pg (27.0-31.2); Mean Corpuscular Volume 91.7 fl (80-94); Mean Platelet Volume 10.6 fl (7.4-10.4); Monocytes # 0.4 K/mm3 (0.1-1.0); Monocytes % 6.1 % (1.7-9.3); Neutrophils # 4.4 K/mm3 (1.8-7.8); Neutrophils % 73.2 % (37.0-80.0); Platelet Count 107 K/mm3 (142-424); Red Blood Count 4.34 M/mm3 (4.60-6.20); Red Cell Distribution Width 16.8 % (11.5-17.5)
[2023-08-16 08:02] LABS: Alanine Aminotransferase 57 U/L (12-78); Albumin Level 2.9 g/dl (3.5-5.0); Albumin/Globulin Ratio 0.9 (1.1-1.8); Alkaline Phosphatase 120 U/L (38-126); Anion Gap 10.6 mEq/L (5-15); Aspartate Amino Transferase 54 U/L (17-59); Bilirubin,Total 0.9 mg/dl (0.2-1.3); Blood Urea Nitrogen 17 mg/dl (9-20); Calcium 8.8 mg/dl (8.4-10.2); Carbon Dioxide 24 mmol/L (22.0-30.0); Chloride 115 mmol/L (98-107); Creatinine Clearance Estimated 55 mL/min (50-200); Estimated Glomerular Filt Rate 129 ml/min (>60); GFR (African American) 156 ML/MIN (>60); Globulin 3.2 g/dL (1.3-3.2); Glucose 107 mg/dl (74-100); Magnesium 1.8 mg/dl (1.6-2.3); Potassium 3.6 mmoL/L (3.5-5.1); Sodium 146 mmol/L (136-145); Total Protein,Serum 6.1 g/dl (6.3-8.2)
--- NOTE | 2023-08-16 08:27 | PC.NURSE ---
Addendum entered by Lorelei Coleman RN 08/16/23 17:48: PT HAS BECOME A LITTLE MORE ALERT SINCE INITIAL ASSESSMENT, FOLLOWING PEOPLE AROUND THE ROOM WITH HIS EYES AND WILL SAY ONE WORD AT A TIME. A VISITOR NAMED GIBSON DOMINGUEZ CAME TO SEE PT STATING SHE IS HIS NEIGHBOR AND HELPS TAKE CARE OF HIM. SHE IS ALSO THE ONE THAT CALLED AMBULANCE FOR PT. GIBSON SAID PT HAS ALWASY BEEN VERY SOFT SPOKEN AND SOMEWHAT HARD TO UNDERSTAND. WHEN GIBSON ENTERED THE ROOM AND SAID HI TO THE PT, THE PT ASKED HER WHAT SHE WAS DOING HERE. Original Note: on initial assessment, only response from pt is moaning after sternal rub.
[2023-08-16 08:53] LABS: Thyroid Stimulating Hormone 5.81 uIU/mL (0.465-4.68)
--- NOTE | 2023-08-16 08:56 | EXP.PHA.PN ---
Subjective *Date: 08/16/23 *Time: 08:56 Medical Exam Vital signs and Labs for Last 24 Hours: Vital Signs Temp Pulse Pulse Resp BP BP Pulse Ox 08/16/23 08:00 08/16/23 08:00 97.4 F L 70 16 109/67 L 98 08/16/23 06:53 08/16/23 04:46 08/16/23 04:00 98.4 F 67 20 96/65 L 97 08/16/23 04:00 77 08/16/23 03:00 08/16/23 01:00 08/16/23 00:00 70 08/16/23 00:00 98.5 F 77 15 108/66 L 96 08/15/23 23:00 08/15/23 21:00 08/15/23 20:00 80 08/15/23 20:00 98.4 F 78 19 89/62 L 96 08/15/23 19:28 08/15/23 18:27 08/15/23 16:57 08/15/23 16:00 79 08/15/23 16:00 97.5 F L 73 18 93/59 L 96 08/15/23 15:00 08/15/23 13:00 08/15/23 12:00 97.8 F 76 20 93/57 L 96 08/15/23 12:00 80 08/15/23 11:00 08/15/23 09:00 O2 Del Method 08/16/23 08:00 Room Air 08/16/23 08:00 Room Air 08/16/23 06:53 Room Air 08/16/23 04:46 Room Air 08/16/23 04:00 Room Air 08/16/23 04:00 08/16/23 03:00 Room Air 08/16/23 01:00 Room Air 08/16/23 00:00 08/16/23 00:00 Room Air 08/15/23 23:00 Room Air 08/15/23 21:00 Room Air 08/15/23 20:00 08/15/23 20:00 Room Air 08/15/23 19:28 Room Air 08/15/23 18:27 Room Air 08/15/23 16:57 Room Air 08/15/23 16:00 08/15/23 16:00 Room Air 08/15/23 15:00 Room Air 08/15/23 13:00 Room Air 08/15/23 12:00 Room Air 08/15/23 12:00 08/15/23 11:00 Room Air 08/15/23 09:00 Room Air Intake and Output 08/15/23 08/16/23 08/16/23 23:59 07:59 15:59 Intake Total 0 / 0 Output Total 200 / 500 150 / 150 0 / 150 Balance -200 / -245 -150 / -150 0 / -150 Intake: Intake, Oral Amount 0 / 0 Output: Output, Urine Amount 200 / 500 150 / 150 0 / 150 Other: Number of Unmeasured Voids 0 Weight 68.585 kg Patient Weight 08/16/23 23:59 Weight 68.585 kg Laboratory Results - last 24 hr 08/15/23 20:05: Vancomycin Trough 13.9 H 08/16/23 07:30: WBC 6.0 D, RBC 4.34 L, Hgb 12.5 L, Hct 39.8 L, MCV 91.7, MCH 28.9, MCHC 31.5 L, RDW 16.8, Plt Count 107 L, MPV 10.6 H, Neut % (Auto) 73.2, Lymph % (Auto) 18.3, [place] % (Auto) 6.1, Eos % (Auto) 1.4, Baso % (Auto) 1.0, Neut # (Auto) 4.4, Lymph # (Auto) 1.1, [place] # (Auto) 0.4, Eos # (Auto) 0.1, Baso # (Auto) 0.1, Sodium 146 H, Potassium 3.6, Chloride 115 H, Carbon Dioxide 24, Anion Gap 10.6, BUN 17, Creatinine 0.60 L, Estimated Creat Clear 55, Estimated GFR 129, Est GFR ( Amer) 156, Glucose 107 H, Calcium 8.8, Magnesium 1.8, Total Bilirubin 0.9, AST 54, ALT 57, Alkaline Phosphatase 120, Total Protein 6.1 L, Albumin 2.9 L, Globulin 3.2, Albumin/Globulin Ratio 0.9 L I & O for Labs for Last 24 Hours: Intake & Output 08/13/23 08/14/23 08/15/23 08/16/23 23:59 23:59 23:59 23:59 Intake Total 754 / 754 1200 / 1200 255 / 255 0 / 0 Output Total 875 / 875 700 / 700 500 / 500 150 / 150 Balance -121 / -121 500 / 500 -245 / -245 -150 / -150 Weight 66.633 kg 67.313 kg 68.356 kg 68.585 kg The patient's infection will respond to the chosen ABx?: Yes (BLOOD CULTURE PENDING, AFEBRILE OVER 24 HR, WHITE COUNT 6.0) Is the patient receiving the right drug, dose, and route?: Yes Could a more targeted ABx be ordered?: No
--- NOTE | 2023-08-16 10:40 | MR_ITS ---
FINAL REPORT CLINICAL HISTORY: CONFUSION ams FINDINGS: Multi planar MR imaging was obtained through the brain without contrast. Image quality somewhat degraded by patient motion. The midline structures appear intact. There is efzh-dx-bzwklnos atrophy. There is moderate abnormal signal in the deep white matter, probably due to chronic ischemia. There is no evidence of Chiari malformation. On diffusion-weighted images there is no evidence of restricted diffusion. There is abnormal signal throughout the mastoid air cells bilaterally, right greater than left consistent with acute mastoiditis. The seventh and eighth nerve root complexes are intact. IMPRESSION: Moderate changes of chronic microvascular ischemia. Acute mastoiditis. Reviewed, Interpreted and Dictated by Deion Weathers MD Transcribed by Nitza Acosta Authenticated and [facility]
[2023-08-16] MEDS: Dex 5% in 0.45% NaCl 1,000 ML 100 ML IV (11:55)
--- NOTE | 2023-08-16 13:52 | DIET.NUTRFU ---
RD reviewed patient with IDT during rounds. He continues on MSOFT diet with poor intake refused breakfast. Nursing noted 50% lunch yesterday. He was reported to be more alert yesterday, knew his name. Today he has hard to wake up, not as alert. Na 146H, ordered dextrose 1 liter to hydrate. LBM was 5/18, medications ordered. Urine output poor yesterday at only 500ml. Provider ordered MRI. mend worker working on placement possibly or [place].
--- NOTE | 2023-08-16 18:35 | EXP.ACUTE.PN ---
Subjective *Date: 08/16/23 *Time: 20:15 Interval history: Patient still confused today. Answers questions with mumbling and word salad. Afebrile and hemodynamically stable. Labs showing improvement. Tolerating portions of a soft mechanical diet. No fever for over 48 hours Medical Exam Vital signs and Labs for Last 24 Hours: Vital Signs Temp Pulse Pulse Resp BP BP Pulse Ox 08/16/23 18:21 08/16/23 17:00 08/16/23 16:00 96.4 F L 71 18 139/72 96 08/16/23 15:00 08/16/23 13:00 08/16/23 11:52 80 08/16/23 11:45 97.5 F L 78 17 123/71 98 08/16/23 11:00 08/16/23 09:00 08/16/23 08:00 71 08/16/23 08:00 08/16/23 08:00 97.4 F L 70 16 109/67 L 98 08/16/23 06:53 08/16/23 04:46 08/16/23 04:00 98.4 F 67 20 96/65 L 97 08/16/23 04:00 77 08/16/23 03:00 08/16/23 01:00 08/16/23 00:00 70 08/16/23 00:00 98.5 F 77 15 108/66 L 96 08/15/23 23:00 08/15/23 21:00 08/15/23 20:00 80 08/15/23 20:00 98.4 F 78 19 89/62 L 96 08/15/23 19:28 O2 Del Method 08/16/23 18:21 Room Air 08/16/23 17:00 Room Air 08/16/23 16:00 Room Air 08/16/23 15:00 Room Air 08/16/23 13:00 Room Air 08/16/23 11:52 08/16/23 11:45 Room Air 08/16/23 11:00 Room Air 08/16/23 09:00 Room Air 08/16/23 08:00 08/16/23 08:00 Room Air 08/16/23 08:00 Room Air 08/16/23 06:53 Room Air 08/16/23 04:46 Room Air 08/16/23 04:00 Room Air 08/16/23 04:00 08/16/23 03:00 Room Air 08/16/23 01:00 Room Air 08/16/23 00:00 08/16/23 00:00 Room Air 08/15/23 23:00 Room Air 08/15/23 21:00 Room Air 08/15/23 20:00 08/15/23 20:00 Room Air 08/15/23 19:28 Room Air Intake and Output 08/16/23 08/16/23 08/16/23 07:59 15:59 23:59 Intake Total 0 / 0 0 / 0 Output Total 150 / 450 0 / 450 300 / 450 Balance -150 / -450 0 / -450 -300 / -450 Intake: Intake, Oral Amount 0 / 0 0 / 0 Output: Output, Urine Amount 150 / 150 0 / 150 Output, Urine Amount (Catheter) 300 / 300 Adames 300 / 300 Other: Number of Unmeasured Voids 0 Weight 68.585 kg Patient Weight 08/16/23 23:59 Weight 68.585 kg Laboratory Results - last 24 hr 08/15/23 20:05: Vancomycin Trough 13.9 H 08/16/23 07:20: TSH 5.81 H 08/16/23 07:30: WBC 6.0 D, RBC 4.34 L, Hgb 12.5 L, Hct 39.8 L, MCV 91.7, MCH 28.9, MCHC 31.5 L, RDW 16.8, Plt Count 107 L, MPV 10.6 H, Neut % (Auto) 73.2, Lymph % (Auto) 18.3, [place] % (Auto) 6.1, Eos % (Auto) 1.4, Baso % (Auto) 1.0, Neut # (Auto) 4.4, Lymph # (Auto) 1.1, [place] # (Auto) 0.4, Eos # (Auto) 0.1, Baso # (Auto) 0.1, Sodium 146 H, Potassium 3.6, Chloride 115 H, Carbon Dioxide 24, Anion Gap 10.6, BUN 17, Creatinine 0.60 L, Estimated Creat Clear 55, Estimated GFR 129, Est GFR ( Amer) 156, Glucose 107 H, Calcium 8.8, Magnesium 1.8, Total Bilirubin 0.9, AST 54, ALT 57, Alkaline Phosphatase 120, Total Protein 6.1 L, Albumin 2.9 L, Globulin 3.2, Albumin/Globulin Ratio 0.9 L I & O for Labs for Last 24 Hours: Intake & Output 08/13/23 08/14/23 08/15/23 08/16/23 23:59 23:59 23:59 23:59 Intake Total 754 / 754 1200 / 1200 255 / 255 0 / 0 Output Total 875 / 875 700 / 700 500 / 500 450 / 450 Balance -121 / -121 500 / 500 -245 / -245 -450 / -450 Weight 66.633 kg 67.313 kg 68.356 kg 68.585 kg Constitutional: Present no acute distress, thin, chronically ill appearing, disheveled and cooperative Head: Present atraumatic and normocephalic ENT: Present normal exam Respiratory: Present normal respiratory effort; Absent rhonchi, wheezes or crackles Cardiac: Present Reg Rate and Rhythm GI: Present soft and normal bowel sounds; Absent distention or tenderness Rectal (male): Present deferred Extremities: Present normal inspection and full ROM Skin: Present intact; Absent erythema Neuro: Present Grossly Intact, alert, awake and moves all extremities Comment:: Frankly disoriented, unable to answer questions appropriately. Makes eye contact. Assessment and Plan *Assessment and plan (1) Encephalopathy, metabolic: Status: Acute Category: Medical Code(s): G93.41 - Metabolic encephalopathy (2) Severe sepsis with acute organ dysfunction: Status: Acute Category: Medical Code(s): A41.9 - Sepsis, unspecified organism; R65.20 - Severe sepsis without septic shock (3) Acute cystitis: Status: Acute Qualifiers: Hematuria presence: without hematuria Qualified Code(s): N30.00 - Acute cystitis without hematuria Category: Medical Code(s): N30.00 - Acute cystitis without hematuria (4) Hypothyroid: Status: Acute Qualifiers: Hypothyroidism type: acquired Qualified Code(s): E03.9 - Hypothyroidism, unspecified Category: Medical Code(s): E03.9 - Hypothyroidism, unspecified (5) Pneumonia: Status: Acute Qualifiers: Laterality: right Lung location: lower lobe of lung Pneumonia type: due to unspecified organism Qualified Code(s): J18.9 - Pneumonia, unspecified organism Category: Medical Code(s): J18.9 - Pneumonia, unspecified organism (6) Fracture of rib of right side: Status: Acute Qualifiers: Encounter type: initial encounter Fracture type: closed Rib fracture type: multiple ribs Qualified Code(s): S22.41XA - Multiple fractures of ribs, right side, initial encounter for closed fracture Category: Medical Code(s): S22.31XA - Fracture of one rib, right side, initial encounter for closed fracture (7) Rhabdomyolysis: Status: Acute Qualifiers: Encounter type: initial encounter Rhabdomyolysis type: traumatic Qualified Code(s): T79.6XXA - Traumatic ischemia of muscle, initial encounter Category: Medical Code(s): M62.82 - Rhabdomyolysis (8) Transaminitis: Status: Acute Category: Medical Code(s): R74.01 - Elevation of levels of liver transaminase levels (9) NSTEMI (non-ST elevated myocardial infarction): Status: Acute Category: Medical Code(s): I21.4 - Non-ST elevation (NSTEMI) myocardial infarction Plan 83-year-old male who presented a week ago with altered mental status. Has shown improvement in his severe sepsis but still remains frankly encephalopathic. Working with therapy, tolerating mechanical soft diet. Does not answer questions appropriately however. Continues to require inpatient management. Will obtain MRI of head today. Further management pending results. Problems addressed as follows: #Severe sepsis with organ dysfunction #Encephalopathy -Continue vancomycin. Discontinue Zosyn and transition to cefepime for better coverage of possible meningitis. Today is day 8 of therapy. -MRI obtained showing volume loss and significant white matter lesions. Changes appear to be chronic. Does have bilateral mastoiditis. -White cell count normalized 6. - Legionella, MRSA and sputum culture pending - repeat blood cultures, earlier cultures growing staph epidermidis -CBC, CMP, magnesium ordered for the morning. Hypothyroid -Concern for component of his abnormal mentation. TSH greater than 20 on arrival. Initiated on IV levothyroxine. -Repeat TSH 5 today. Showing response -Transition to oral levothyroxine 125 mcg daily #Pneumonia #Right rib fractures Aspiration PNA, continue antibiotics as above. -Stable on room air, goal saturation greater 90% Sputum culture pending Blood cultures pending #Traumatic rhabdomyolysis #TransaminitisCPK has improved -Kidney function normalized. Creatinine 0.6, BUN 17. Electrolytes with potassium 3.6, magnesium 1.8. Sodium elevated 146 today. -Administer 1 L D5 half-normal at 100 cc an hour today. #Acute cystitis Urinalysis with only nitrite positive but given patient's altered mental status will continue antibiotics. Currently on broad-spectrum antibiotics #T2DM ISS, monitor #NSTEMI DVT PPx Lovenox Full code Further goals of care discussion with brother who is a surrogate decision maker.
[2023-08-16] MEDS: CEFEPIME HCL 2 GM in 0.9 % SODIUM CHLORIDE 100 ML IV (18:52)
[2023-08-16] MEDS: TAMSULOSIN 0.4MG CAPSULE 0.400000000000000022 MG PO (21:24)
[2023-08-16] MEDS: SODIUM CHLORIDE 0.9% 10ML VIAL 10 ML IV (21:24)
[2023-08-16] MEDS: VANCOMYCIN/WATER FOR INJ (PEG) 1.25 GM/250 ML PIGGYBACK IV (21:24)
[2023-08-16] MEDS: PANTOPRAZOLE 40MG VIAL 40 MG IV (21:24)
[2023-08-17] VITALS (16 sets, daily range): BP systolic 100–137; BP diastolic 59–89; PULSE 60–77; RESP 14–20; TEMP 34.9–37.3; O2SAT 93–98; BMI 20.5
[2023-08-17] MEDS: CEFEPIME HCL 2 GM in 0.9 % SODIUM CHLORIDE 100 ML IV ×3 (02:47→17:55)
--- NOTE | 2023-08-17 03:57 | PC.NURSE ---
Patient is alert to first name and month/day of his . Patient is confused when asked questions, word salad and mumbling. Patient urine output is poor. No bowel movement thus far during this RN's shift. Bowel sounds are active. Patient lung sounds are clear bilaterally throughout. Stage I noted to right hip bony prominences and coccyx. Dressings reapplied.
[2023-08-17] MEDS: 0.9 % SODIUM CHLORIDE 1000ML 1,000 ML 100 ML IV ×2 (04:21→21:49)
[2023-08-17] MEDS: LEVOTHYROXINE 125MCG (0.125MG) TAB 125 MCG PO (06:06)
--- NOTE | 2023-08-17 07:37 | EXP.PHA.CONS ---
Pharmacy Consult Date: 08/17/23 Time: 07:37 Referring provider: DR. ROBERTSON Reason for Consult:: VANCOMYCIN TROUGH LEVEL Allergies Allergy/AdvReac Type Severity Reaction Status Date / Time sulfamethoxazole Allergy Unknown Unknown Verified 08/09/23 10:21 [From Bactrim] allergy reaction trimethoprim [From Bactrim] Allergy Unknown Unknown Verified 08/09/23 10:21 allergy reaction Home Medications Medication Instructions Recorded Confirmed Type gabapentin 100 mg capsule 100 mg PO TIDP PRN Shingles Pain 08/08/23 08/08/23 History levothyroxine 100 mcg tablet 100 mcg PO DAILY 08/08/23 08/08/23 History New Prescriptions to Start Prescriptions: Height: 1.83 m Weight: 68.6 kg Laboratory Results:: Laboratory Results - last 24 hr 08/16/23 07:20: TSH 5.81 H 08/16/23 07:30: WBC 6.0 D, RBC 4.34 L, Hgb 12.5 L, Hct 39.8 L, MCV 91.7, MCH 28.9, MCHC 31.5 L, RDW 16.8, Plt Count 107 L, MPV 10.6 H, Neut % (Auto) 73.2, Lymph % (Auto) 18.3, [place] % (Auto) 6.1, Eos % (Auto) 1.4, Baso % (Auto) 1.0, Neut # (Auto) 4.4, Lymph # (Auto) 1.1, [place] # (Auto) 0.4, Eos # (Auto) 0.1, Baso # (Auto) 0.1, Sodium 146 H, Potassium 3.6, Chloride 115 H, Carbon Dioxide 24, Anion Gap 10.6, BUN 17, Creatinine 0.60 L, Estimated Creat Clear 55, Estimated GFR 129, Est GFR ( Amer) 156, Glucose 107 H, Calcium 8.8, Magnesium 1.8, Total Bilirubin 0.9, AST 54, ALT 57, Alkaline Phosphatase 120, Total Protein 6.1 L, Albumin 2.9 L, Globulin 3.2, Albumin/Globulin Ratio 0.9 L Medical History: Medical History (Updated 08/09/23 @ 13:45 by YAZ Bains) Shingles Shingles (herpes zoster) polyneuropathy Diabetes Hypothyroid Assessment and Plan Assessment and plan all Dx Assessment and Plan for all problems:: BASED ON VANCOMYCIN TROUGH LEVEL OF 13.9, RECOMMEND CONTINUING CURRENT DOSE OF VANCOMYCIN AT 1,250MG EVERY 24 HOURS. PHARMACY WILL CONTINUE TO MONITOR. -ALVA SMALLWOOD, ANNEMARIED
[2023-08-17 07:45] LABS: Eosinophils # 0.1 K/mm3 (0.0-0.4); Eosinophils % 1.5 % (0.1-12.0); Hematocrit 37.6 % (42.0-52.0); Lymphocytes # 0.9 K/mm3 (0.7-4.5); Lymphocytes % 18.8 % (10-50); Mean Corpuscular Hemoglobin 29.3 pg (27.0-31.2); Mean Corpuscular Volume 91.6 fl (80-94); Mean Platelet Volume 11.2 fl (7.4-10.4); Monocytes # 0.3 K/mm3 (0.1-1.0); Monocytes % 6.3 % (1.7-9.3); Neutrophils # 3.3 K/mm3 (1.8-7.8); Neutrophils % 72.5 % (37.0-80.0); Platelet Count 100 K/mm3 (142-424); Red Blood Count 4.11 M/mm3 (4.60-6.20); Red Cell Distribution Width 16.8 % (11.5-17.5); White Blood Count 4.6 K/mm3 (4.8-10.8)
[2023-08-17 07:48] LABS: Alanine Aminotransferase 49 U/L (12-78); Albumin Level 2.5 g/dl (3.5-5.0); Albumin/Globulin Ratio 0.8 (1.1-1.8); Alkaline Phosphatase 107 U/L (38-126); Anion Gap 11.1 mEq/L (5-15); Aspartate Amino Transferase 42 U/L (17-59); Bilirubin,Total 0.7 mg/dl (0.2-1.3); Blood Urea Nitrogen 14 mg/dl (9-20); Calcium 8.5 mg/dl (8.4-10.2); Carbon Dioxide 23 mmol/L (22.0-30.0); Chloride 114 mmol/L (98-107); Creatinine Clearance Estimated 55 mL/min (50-200); Estimated Glomerular Filt Rate 206 ml/min (>60); GFR (African American) 249 ML/MIN (>60); Globulin 3.1 g/dL (1.3-3.2); Glucose 111 mg/dl (74-100); Potassium 3.1 mmoL/L (3.5-5.1); Sodium 145 mmol/L (136-145); Total Protein,Serum 5.6 g/dl (6.3-8.2)
[2023-08-17 07:54] LABS: Magnesium 1.6 mg/dl (1.6-2.3)
[2023-08-17] MEDS: MAGNESIUM SULFATE IN WATER 2 GM/50 ML PIGGYBACK IV (09:28)
--- NOTE | 2023-08-17 10:19 | DIET.NUTRFU ---
Addendum entered by Dorinda Hendrix RD, LD 08/17/23 11:53: Nursing reported she was able to administer the senenkot. Provider ordered another bag of dextorse. Plan is to consult hospice and discuss goals of care with family Original Note: Spoke to nursing aid post breakfast and he seems more alert and plan to try some pudding. He refused all meals yesterday- not alert enough. Spoke to nursing today about BM, senekot ordered PRN and not given. LBM was 5/18, if he can tolerate will give today. Urine output continues to be poor. Dextrose provided yesterday and NaCl today. Na 145, K 3.1, BUN 14, Cr 0.40 and BS 111. Stage 1 noted to hip, based on poor nutrition and staff dependence he is at high risk for breakdown.
[2023-08-17] MEDS: SENNOSIDES 8.6MG/DOCUSATE 50MG TABLET 1 TAB PO (10:28)
[2023-08-17] MEDS: Dex 5% in 0.45% NaCl 1,000 ML 100 ML IV (12:21)
[2023-08-17] MEDS: 0.9 % SODIUM CHLORIDE 1000ML 500 ML 999 ML IV (12:21)
--- NOTE | 2023-08-17 12:24 | PC.NURSE ---
[facility] staff here to evaluate pt.
--- NOTE | 2023-08-17 14:23 | PC.NURSE ---
hospice nurse at bedside
--- NOTE | 2023-08-17 15:21 | P.PN_ITS ---
Subjective *Date: 08/17/23 *Time: 15:21 Interval history: Patient making eye contact after sternal rub. No significant verbal response to questions or verbal commands today. Appears more confused. Mentation waxes and wanes as he did speak to staff earlier this morning. Poor p.o. intake today. Decreasing urine output. Kidney function and electrolytes remained stable. White cell count remains normal. No fevers overnight. Stable on room air. Medical Exam Vital signs and Labs for Last 24 Hours: Vital Signs Temp Pulse Resp BP BP Pulse Ox O2 Del Method 08/17/23 13:04 Room Air 08/17/23 11:02 Room Air 08/17/23 08:50 Room Air 08/17/23 08:00 96.6 F L 69 16 114/74 97 Room Air 08/17/23 07:24 Room Air 08/17/23 05:26 Room Air 08/17/23 04:00 97.6 F 64 20 137/89 96 Room Air 08/17/23 03:03 Room Air 08/17/23 01:09 Room Air 08/16/23 23:17 Room Air 08/16/23 21:00 Room Air 08/16/23 20:05 Room Air 08/16/23 20:00 100/62 L 08/16/23 20:00 98.4 F 82 20 99/60 L 95 Room Air 08/16/23 18:21 Room Air 08/16/23 17:00 Room Air 08/16/23 16:00 96.4 F L 71 18 139/72 96 Room Air Intake and Output 08/16/23 08/17/23 08/17/23 23:59 07:59 15:59 Intake Total 1000 / 1250 593 / 593 0 / 593 Output Total 300 / 450 300 / 300 Balance 700 / 800 293 / 293 0 / 293 Intake: Intake, Oral Amount 0 / 0 0 / 0 Intake, Total IV Amount 1000 / 1250 593 / 593 0.9 % Sodium Chloride 1000ML 1, 243 / 243 000 ml @ 100 mls/hr IV .Q10H [facility] Rx#:[id number] Cefepime HCl 2 gm In 0.9 % 100 / 100 Sodium Chloride 100 ml @ 200 mls/hr IV Q8H [facility] Rx#:[id number] Dex 5% in 0.45% NaCl 1,000 ml @ 1000 / 1000 100 mls/hr IV .Q10H [facility] Rx#: [id number] Vancomycin/Water For Inj (Peg) 250 / 250 1.25 gm In 250 ml @ 125 mls/hr IV Q24H [facility]I Rx#:[id number] Output: Output, Urine Amount 300 / 300 Output, Urine Amount (Catheter) 300 / 300 Adames 300 / 300 Other: Number of Unmeasured Voids 0 Weight 68.6 kg Patient Weight 08/17/23 23:59 Weight 68.6 kg Laboratory Results - last 24 hr 08/17/23 06:43: WBC 4.6 L, RBC 4.11 L, Hgb 12.0 L, Hct 37.6 L, MCV 91.6, MCH 29.3, MCHC 32.0, RDW 16.8, Plt Count 100 L, MPV 11.2 H, Neut % (Auto) 72.5, Lymph % (Auto) 18.8, [place] % (Auto) 6.3, Eos % (Auto) 1.5, Baso % (Auto) 1.0, Neut # (Auto) 3.3, Lymph # (Auto) 0.9, [place] # (Auto) 0.3, Eos # (Auto) 0.1, Baso # (Auto) 0.0, Sodium 145, Potassium 3.1 L, Chloride 114 H, Carbon Dioxide 23, Anion Gap 11.1, BUN 14, Creatinine 0.40 L D, Estimated Creat Clear 55, Estimated GFR 206, Est GFR ( Amer) 249 D, Glucose 111 H, Calcium 8.5, Magnesium 1.6 D, Total Bilirubin 0.7, AST 42, ALT 49, Alkaline Phosphatase 107, Total Protein 5.6 L, Albumin 2.5 L D, Globulin 3.1, Albumin/Globulin Ratio 0.8 L I & O for Labs for Last 24 Hours: Intake & Output 08/14/23 08/15/23 08/16/23 08/17/23 23:59 23:59 23:59 23:59 Intake Total 1200 / 1200 255 / 255 1000 / 1250 593 / 593 Output Total 700 / 700 500 / 500 450 / 450 300 / 300 Balance 500 / 500 -245 / -245 550 / 800 293 / 293 Weight 67.313 kg 68.356 kg 68.585 kg 68.6 kg Constitutional: Present no acute distress, thin, chronically ill appearing, disheveled and cooperative Head: Present atraumatic and normocephalic ENT: Present normal exam Respiratory: Present normal respiratory effort; Absent rhonchi, wheezes or crackles Cardiac: Present Reg Rate and Rhythm GI: Present soft and normal bowel sounds; Absent distention or tenderness Rectal (male): Present deferred Extremities: Present normal inspection and full ROM Skin: Present intact; Absent erythema Neuro: Present alert and awake Comment:: Makes eye contact after sternal rub. No response to verbal commands. Spontaneously opening eyes. Spontaneous motor movement. Assessment and Plan *Assessment and plan (1) Encephalopathy, metabolic: Status: Acute Category: Medical Code(s): G93.41 - Metabolic encephalopathy (2) Subcortical microvascular ischemic occlusive disease: Status: Acute Category: Medical Code(s): I67.82 - Cerebral ischemia (3) Severe sepsis with acute organ dysfunction: Status: Acute Category: Medical Code(s): A41.9 - Sepsis, unspecified organism; R65.20 - Severe sepsis without septic shock (4) Acute cystitis: Status: Acute Qualifiers: Hematuria presence: without hematuria Qualified Code(s): N30.00 - Acute cystitis without hematuria Category: Medical Code(s): N30.00 - Acute cystitis without hematuria (5) Hypothyroid: Status: Acute Qualifiers: Hypothyroidism type: acquired Qualified Code(s): E03.9 - Hypothyroidism, unspecified Category: Medical Code(s): E03.9 - Hypothyroidism, unspecified (6) Pneumonia: Status: Acute Qualifiers: Pneumonia type: due to unspecified organism Laterality: right Lung location: lower lobe of lung Qualified Code(s): J18.9 - Pneumonia, unspecified organism Category: Medical Code(s): J18.9 - Pneumonia, unspecified organism (7) Fracture of rib of right side: Status: Acute Qualifiers: Encounter type: initial encounter Rib fracture type: multiple ribs Fracture type: closed Qualified Code(s): S22.41XA - Multiple fractures of ribs, right side, initial encounter for closed fracture Category: Medical Code(s): S22.31XA - Fracture of one rib, right side, initial encounter for closed fracture (8) Rhabdomyolysis: Status: Acute Qualifiers: Rhabdomyolysis type: traumatic Encounter type: initial encounter Qualified Code(s): T79.6XXA - Traumatic ischemia of muscle, initial encounter Category: Medical Code(s): M62.82 - Rhabdomyolysis (9) Transaminitis: Status: Acute Category: Medical Code(s): R74.01 - Elevation of levels of liver transaminase levels (10) NSTEMI (non-ST elevated myocardial infarction): Status: Acute Category: Medical Code(s): I21.4 - Non-ST elevation (NSTEMI) myocardial infarction Plan 83-year-old male who presented a week ago with altered mental status. Has shown improvement in his severe sepsis but still remains frankly encephalopathic. Working with therapy, tolerating mechanical soft diet. Does not answer questions appropriately however. Continues to require inpatient management. Will obtain MRI of head today. Further management pending results. Problems addressed as follows: #Severe sepsis with organ dysfunction #Encephalopathy -MRI obtained yesterday of head. Mild to moderate atrophy with moderate abnormal signals in the deep white matter. Due to chronic ischemia. -Not showing any improvement in mentation. Discussed with family consulting hospice today. Evaluating this afternoon -Continue vancomycin and cefepime. Today is day 10 of coverage. Will plan to continue therapy until patient discharges with hospice or 14 days, whichever is sooner as he is completed a minimum of 10 days therapy with normalization and vitals and white cell count and no improvement in mentation. -White cell count normal at 4.6. Afebrile overnight. - Legionella nonreactive, MRSA negative. Sputum culture with no growth. - repeat blood cultures remain negative. 1 set of initial blood cultures positive for Staph epidermidis, sensitive to vancomycin. Second set remains negative at 48 hours - CBC, CMP, magnesium ordered for the morning. Hypothyroid -Concern for component of his abnormal mentation. TSH greater than 20 on arrival -Continue oral levothyroxine 125 mcg daily #Pneumonia #Right rib fractures Aspiration PNA, continue antibiotics as above. -Stable on room air, goal saturation greater 90% Sputum culture pending Repeat blood cultures pending #Traumatic rhabdomyolysis #TransaminitisCPK has improved -Kidney function normalized. Creatinine 0.4, BUN 14. Electrolytes with potassium 3.1, magnesium 1.6. Sodium 145, chloride 114. -Administer 1 L D5 half-normal at 100 cc an hour today. -2 g magnesium IV x 1 today #Acute cystitis Urinalysis with only nitrite positive but given patient's altered mental status will continue antibiotics. Currently on broad-spectrum antibiotics #T2DM ISS, monitor #NSTEMI DVT PPx Lovenox Full code Further goals of care discussion with brother who is a surrogate decision maker.
--- NOTE | 2023-08-17 18:12 | PC.NURSE ---
PT IS ALERT TO SELF. PT HAS WAXED AND WANED THROUGHOUT THE SHIFT. AT TIMES HE IS ABLE TO ANSWER SIMPLE QUESTIONS, AT TIMES IT IS YES OR NO, AND AT TIMES IT IS MUMBLED. LUNG SOUNDS DIMINISHED THROUGHOUT. NO COUGH NOTED. ACTIVE BOWEL SOUNDS HEARD IN ALL 4 QUADRANTS. SOFT AND NONTENDER. NO BM THUS FAR. GAVE PT A SENOKOT TODAY DUE TO NO BM FOR SEVERAL DAYS. CRUSHED AND GAVE IN PUDDING. PT TOLERATED WELL. PT HASN'T ATE MUCH THIS SHIFT. NO URINE OUTPUT THUS FAR. PT DID RECEIVE A 500ML BOLUS EARLIER IN THE SHIFT. WILL PASS ALONG IN REPORT IF PATIENT HASN'T VOIDED BY 8PM HE WILL NEED TO BE BLADDER SCANNED AND IN AND OUT CATH IF URINE >500. PT IS WEAK. STAGE 1 NOTED TO COCCYX AND R HIP. DRESSING IN PLACE IN BOTH AREAS. PT TURNED Q2 HOURS. NEIGHBOR DID COME TO SEE HIM TODAY WELL A PREACHER. PT IS CURRENTLY ON A BAREHUGGER DUE TO RECTAL TEMP BELOW 95 TOLERATING WELL THUS FAR. FOLLOWING PROTOCOL FOR HYPOTHERMIA. AWARE. RESPIRATIONS REGULAR AND UNLABORED. PT WAS ADMITTED TO HOSPICE TODAY AND WILL TRANSFERRED TO RETIREMENT TOMORROW PER DR ROBERTSON'S NOTED. DR ROBERTSON SPOKE WITH FAMILY AND THEY ARE AGREEABLE AND AWARE. BED IN LOWEST POSITION. CALL LIGHT WITHIN REACH. BED ALARM ON TO PROMOTE SAFETY.
--- NOTE | 2023-08-17 19:30 | PC.NURSE ---
Pt temp 96.0 F via rectal thermometer at this time. will continue with hypothermia protocol. Bear hugger applied and running with warm blankets. Room temp set to 74.
--- NOTE | 2023-08-17 20:45 | PC.NURSE ---
Pt bladder scanned at this time per MD request to scan @ 2000 and if contents >500 to in and out cath pt. 510 mL scanned and in and out cath done. 250 mL of dark yellow urine removed from bladder.
[2023-08-17] MEDS: VANCOMYCIN/WATER FOR INJ (PEG) 1.25 GM/250 ML PIGGYBACK IV (21:42)
[2023-08-17] MEDS: SODIUM CHLORIDE 0.9% 10ML VIAL 10 ML IV (21:42)
[2023-08-17] MEDS: PANTOPRAZOLE 40MG VIAL 40 MG IV (21:43)
--- NOTE | 2023-08-17 22:05 | PC.NURSE ---
Pt rectal temp is 99.2 F at this time. Pt bear hugger removed at this time. x2 warm blankets remain and temp in room remains set at 74. will recheck temp in 1 hour.
--- NOTE | 2023-08-17 23:10 | PC.NURSE ---
Pt rectal temp 98.9 F at this time. Temp in room adjusted to 72.
[2023-08-18] MEDS: CEFEPIME HCL 2 GM in 0.9 % SODIUM CHLORIDE 100 ML IV ×2 (03:07→10:05)
--- NOTE | 2023-08-18 03:57 | PC.NURSE ---
Pt is alert to self at times. Pt is on RA and is sating in mid to high 90s. Pt is hard to understand and moaning when repositioning and providing pt care. Pt had 250mL removed from bladder via in and out cath due to retention, pt tolerated well. Pt has tolerated antibiotics therapy well. paused pt fluids this shift per Dr. Hobson. no changes to pt documented wounds and Q2 turns continue.
[2023-08-18 04:00] VITALS: BP 113/71; PULSE 77; RESP 16; TEMP 36.8; O2SAT 94; BMI 21.5
[2023-08-18 06:39] LABS: Alanine Aminotransferase 40 U/L (12-78); Albumin Level 2.3 g/dl (3.5-5.0); Albumin/Globulin Ratio 0.8 (1.1-1.8); Alkaline Phosphatase 98 U/L (38-126); Anion Gap 8.1 mEq/L (5-15); Aspartate Amino Transferase 37 U/L (17-59); Bilirubin,Total 0.6 mg/dl (0.2-1.3); Blood Urea Nitrogen 11 mg/dl (9-20); Calcium 8.3 mg/dl (8.4-10.2); Carbon Dioxide 23 mmol/L (22.0-30.0); Chloride 114 mmol/L (98-107); Creatinine Clearance Estimated 58 mL/min (50-200); Estimated Glomerular Filt Rate 129 ml/min (>60); GFR (African American) 156 ML/MIN (>60); Glucose 98 mg/dl (74-100); Potassium 3.1 mmoL/L (3.5-5.1); Sodium 142 mmol/L (136-145); Total Protein,Serum 5.3 g/dl (6.3-8.2)
[2023-08-18 06:44] LABS: Eosinophils # 0.1 K/mm3 (0.0-0.4); Eosinophils % 1.6 % (0.1-12.0); Hematocrit 36.5 % (42.0-52.0); Hemoglobin 11.7 g/dL (14.1-18.0); Lymphocytes # 0.7 K/mm3 (0.7-4.5); Mean Corpuscular HGB Conc 32.1 g/dL (31.8-35.4); Mean Corpuscular Hemoglobin 28.9 pg (27.0-31.2); Mean Corpuscular Volume 89.8 fl (80-94); Monocytes # 0.3 K/mm3 (0.1-1.0); Monocytes % 6.4 % (1.7-9.3); Neutrophils # 3.2 K/mm3 (1.8-7.8); Platelet Count 140 K/mm3 (142-424); Red Blood Count 4.06 M/mm3 (4.60-6.20); Red Cell Distribution Width 16.9 % (11.5-17.5); White Blood Count 4.3 K/mm3 (4.8-10.8)
[2023-08-18 07:37] LABS: Magnesium 1.8 mg/dl (1.6-2.3)
--- NOTE | 2023-08-18 07:51 | P.DS_ITS ---
General Admission date:: 08/09/23 Discharge date: 08/18/23 HPI HPI HPI: This is an 83-year-old male with past medical history of diabetes and hypothyroidism who presents to the emergency department for altered mental status. Information surrounding patient unable to be obtained secondary to patient's mental status at this time. Does not appear to have much medical history other than hypothyroidism. Does follow in the outpatient setting with podiatry but no other documentation to aid in collateral. No family at bedside. Patient was apparently found by a neighbor who had not seen him in several days. When neighbor found him, he was unresponsive. At the time of patient's arrival to the emergency department via EMS, he was noted to have stable blood pressure and glucose, requiring 2 L nasal cannula for hypoxia but otherwise stable. Emergency department workup notable for blood blood cell 14, VBG showing AHI 7.4, lactic acid of 4.8, potassium of 5.3 with anion gap of 22. Creatinine 1.1. CK of 2352, mildly elevated troponin at 0.04. TSH of 21 with a free T4 of 0.9. Urinalysis positive for nitrates but otherwise negative. CT scan of the abdomen and chest notable for right lower lobe pneumonia with subsequent acute 11th and 12th rib fractures. He is also noted to have elevated AST and ALT, with a T bilirubin of 2.5. Given patient's encephalopathy and likely septic pneumonia with rhabdomyolysis, he will be admitted to the hospital service for further evaluation management. Hospital Course Hospital Course Hospital Course: 83-year-old male who presented a week ago with altered mental status. Has shown improvement in his severe sepsis but still remains frankly encephalopathic. Patient was treated for his sepsis and organ dysfunction with broad-spectrum antibiotics. Workup with blood culture positive for Staph epidermidis in 1 bottle, remainder of cultures negative. Imaging of head showed diffuse atrophy and subcortical white matter lesions from chronic ischemia. Over course of hospitalization, patient had minor improvement in mentation but still remains frankly encephalopathic with mild waxing and waning of mentation. Occasionally will say words and respond to questioning but having no meaningful interaction. Taking minimal oral intake. Patient's condition appears to have stabilized and plateaued. Unfortunately at this time we do not see any chance for improvement. Decision after discussion with family made to transition to hospice care for Subcortical microvascular ischemic disease. Problems addressed during hospitalization as follows: #Severe sepsis with organ dysfunction #Encephalopathy -Initial imaging of head showed no acute stroke but did have significant atrophy and subcortical lesions that appear chronic. Found to have minor hypernatremia, dehydration, rhabdomyolysis, rib fractures and pneumonia. Treated with broad- spectrum antibiotics during admission. Completed total of 12 days of antibiotics. White cell count has remained normal for the past week. Stable on room air. Kidney function and electrolytes responded well. Given poor p.o. intake, discussion about feeding tube. No desire for aggressive interventions or procedures at this time. Patient's p.o. intake and adequate to maintain appropriate hydration or nutritional support. Continues to be confused and encephalopathic. Given his completion of antibiotic therapy, normal white count, and stable hemodynamics, will discontinue antibiotics at this time and discharge to hospice. -Does not appear to be in pain or agitated at this time. No morphine or Ativan sent on discharge. Hypothyroid -Concern for component of his abnormal mentation. TSH greater than 20 on arrival. Improving during admission at 5 2 days prior to discharge. Will continue levothyroxine 125 mcg daily p.o. if able to tolerate. #Pneumonia #Right rib fractures Aspiration PNA, with rib fractures on chest imaging. Has been stable on room air for over a week. White cell count normalized. Completed antibiotic course. #Traumatic rhabdomyolysis #TransaminitisCPK has improved -CK and kidney function abnormal on admission. Responded to hydration. Kidney function is normalized. #Acute cystitis Urinalysis with only nitrite positive but given patient's altered mental status will continue antibiotics. Currently on broad-spectrum antibiotics, completed empiric course. Extensive discussion with family during course of admission. Given patient's lack of further improvement, encephalopathy, poor p.o. intake, goals of care discussion with decision to transition to hospice care. Patient stable for discharge at this time to [facility] to be admitted to hospice. Pro gnosis poor. Total time spent on discharge 35 minutes in counseling, documentation, chart review, and direct care with patient. Exam Data for Last 24 hours Vital signs and Labs for Last 24 Hours: Temp Pulse Resp BP Pulse Ox O2 Del Method O2 Flow Rate 98.3 F 77 16 113/71 94 L Room Air 1 08/18/23 04:00 08/18/23 04:00 08/18/23 04:00 08/18/23 04:00 08/18/23 04:00 08/18/23 07:32 08/09/23 04:00 Laboratory Results - last 24 hr 08/17/23 06:43: Magnesium 1.6 D 08/18/23 05:58: WBC 4.3 L, RBC 4.06 L, Hgb 11.7 L, Hct 36.5 L, MCV 89.8, MCH 28.9, MCHC 32.1, RDW 16.9, Plt Count 140 L D, MPV 11.0 H, Neut % (Auto) 74.0, Lymph % (Auto) 17.0, [place] % (Auto) 6.4, Eos % (Auto) 1.6, Baso % (Auto) 1.0, Neut # (Auto) 3.2, Lymph # (Auto) 0.7, [place] # (Auto) 0.3, Eos # (Auto) 0.1, Baso # (Auto) 0.0, Sodium 142, Potassium 3.1 L, Chloride 114 H, Carbon Dioxide 23, Anion Gap 8.1, BUN 11, Creatinine 0.60 L D, Estimated Creat Clear 58, Estimated GFR 129, Est GFR ( Amer) 156 D, Glucose 98, Calcium 8.3 L, Total Bilirubin 0.6, AST 37, ALT 40, Alkaline Phosphatase 98, Total Protein 5.3 L, Albumin 2.3 L, Globulin 3.0, Albumin/Globulin Ratio 0.8 L I & O for Last 24 hours: Intake & Output 08/15/23 08/16/23 08/17/23 08/18/23 23:59 23:59 23:59 23:59 Intake Total 255 / 255 1000 / 1250 593 / 1443 850 / 850 Output Total 500 / 500 450 / 450 550 / 550 Balance -245 / -245 550 / 800 43 / 893 850 / 850 Weight 68.356 kg 68.585 kg 68.6 kg 72.212 kg Constitutional Constitutional: no acute distress, average body habitus and chronically ill appearing *Routine HEENT Exam Head: Present normocephalic Eye: Present EOMI and PERRL ENT: Present mucous membranes moist Comments: Edentulous *Routine Neck Exam Neck: Present supple; Absent lymphadenopathy *Routine Respiratory Exam Respiratory: Present CTA bilaterally; Absent rhonchi, wheezes or crackles *Routine Cardiovascular Exam Cardiovascular: Present RRR *Routine Abdominal Exam Abdominal: Present soft and normoactive bowel sounds; Absent tenderness *Routine Rectal Exam Patient deferred: visual exam *Routine Exam Patient deferred: penile exam *Routine Extremities Exam Extremities: Absent cyanosis, clubbing or edema *Routine Skin Exam Skin: Present warm; Absent rash *Routine Neurological Exam Neurological: Present alert, altered mental status and moving all extremities (Spontaneous movement) Results Data Completed and Pending Labs on day of discharge: Labs from last 24 hours 08/18/23 08/17/23 05:58 06:43 WBC 4.3 L RBC 4.06 L Hgb 11.7 L Hct 36.5 L MCV 89.8 MCH 28.9 MCHC 32.1 RDW 16.9 Plt Count 140 L D MPV 11.0 H Neut % (Auto) 74.0 Lymph % (Auto) 17.0 [place] % (Auto) 6.4 Eos % (Auto) 1.6 Baso % (Auto) 1.0 Neut # (Auto) 3.2 Lymph # (Auto) 0.7 [place] # (Auto) 0.3 Eos # (Auto) 0.1 Baso # (Auto) 0.0 Sodium 142 Potassium 3.1 L Chloride 114 H Carbon Dioxide 23 Anion Gap 8.1 BUN 11 Creatinine 0.60 L D Estimated Creat Clear 58 Estimated GFR 129 Est GFR ( Amer) 156 D Glucose 98 Calcium 8.3 L Magnesium 1.6 D Total Bilirubin 0.6 AST 37 ALT 40 Alkaline Phosphatase 98 Total Protein 5.3 L Albumin 2.3 L Globulin 3.0 Albumin/Globulin Ratio 0.8 L DS: Diagnosis Discharge Diagnosis (1) Encephalopathy, metabolic: Status: Acute Code(s): G93.41 - Metabolic encephalopathy (2) Subcortical microvascular ischemic occlusive disease: Status: Acute Code(s): I67.82 - Cerebral ischemia (3) Severe sepsis with acute organ dysfunction: Status: Acute Code(s): A41.9 - Sepsis, unspecified organism; R65.20 - Severe sepsis without septic shock (4) Acute cystitis: Status: Acute Code(s): N30.00 - Acute cystitis without hematuria Qualifiers: Hematuria presence: without hematuria Qualified Code(s): N30.00 - Acute cystitis without hematuria (5) Hypothyroid: Status: Acute Code(s): E03.9 - Hypothyroidism, unspecified Qualifiers: Hypothyroidism type: acquired Qualified Code(s): E03.9 - Hypothyroidism, unspecified (6) Pneumonia: Status: Acute Code(s): J18.9 - Pneumonia, unspecified organism Qualifiers: Laterality: right Lung location: lower lobe of lung Pneumonia type: due to unspecified organism Qualified Code(s): J18.9 - Pneumonia, unspecified organism (7) Fracture of rib of right side: Status: Acute Code(s): S22.31XA - Fracture of one rib, right side, initial encounter for closed fracture Qualifiers: Encounter type: initial encounter Fracture type: closed Rib fracture type: multiple ribs Qualified Code(s): S22.41XA - Multiple fractures of ribs, right side, initial encounter for closed fracture (8) Rhabdomyolysis: Status: Acute Code(s): M62.82 - Rhabdomyolysis Qualifiers: Encounter type: initial encounter Rhabdomyolysis type: traumatic Qualified Code(s): T79.6XXA - Traumatic ischemia of muscle, initial encounter (9) Transaminitis: Status: Acute Code(s): R74.01 - Elevation of levels of liver transaminase levels (10) NSTEMI (non-ST elevated myocardial infarction): Status: Acute Code(s): I21.4 - Non-ST elevation (NSTEMI) myocardial infarction Meds Home Medications and Allergies Home Medications Medication Instructions Recorded Confirmed Type levothyroxine 125 mcg tablet 125 mcg PO DAILYDM 30 days #30 tabs 08/18/23 Rx (Synthroid) sennosides 8.6 mg-docusate sodium 1 tab PO DAILY 30 days #30 tabs 08/18/23 Rx 50 mg tablet (Stimulant Laxative Plus) tamsulosin 0.4 mg capsule 0.4 mg PO HS 30 days #30 caps 08/18/23 Rx New Prescriptions to Start Prescriptions: levothyroxine [Synthroid] Jermaine Pineda sennosides-docusate sodium [Stimulant Laxative Plus] Jermaine Pineda tamsulosin Jermaine Pineda Allergies Allergy/AdvReac Type Severity Reaction Status Date / Time sulfamethoxazole Allergy Unknown Unknown Verified 08/09/23 10:21 [From Bactrim] allergy reaction trimethoprim [From Bactrim] Allergy Unknown Unknown Verified 08/09/23 10:21 allergy reaction Discharge Plan Disposition Patient Disposition: Hospice - Medical Facility Condition: Serious Follow up Plan Prescriptions/Medication Reconciliation: New sennosides-docusate sodium [Stimulant Laxative Plus] 8.6-50 mg Tablet 1 tab PO DAILY 30 Days Qty: 30 0RF tamsulosin 0.4 mg Capsule 0.4 mg PO HS 30 Days Qty: 30 0RF levothyroxine [Synthroid] 125 mcg Tablet 125 mcg PO DAILYDM 30 Days Qty: 30 0RF Discontinued levothyroxine 100 mcg tablet 100 mcg PO DAILY Patient Comments: TAKE 1 TABLET BY MOUTH EVERY DAY gabapentin 100 mg capsule 100 mg PO TIDP PRN (Reason: Shingles Pain) Patient Comments: TAKE 1 CAPSULE BY MOUTH THREE TIMES DAILY NEEDED FOR SHINGLES PAIN Problem Reconciliation Problems Reviewed?: Yes Patient Discharge Instructions ACTIVITY: Continue current activity DIET: continue same diet Patient Instructions: Septic Shock, DI for Pneumonia -- Adult, DI for Rhabdomyolysis, Catheter-associated Urinary Tract Infection Providers Primary Care Provider: Nate Fajardo Admit Provider: Jermaine Pineda Attending Provider: Jermaine Pineda
[2023-08-18 08:00] VITALS: BP 100/66; PULSE 71; RESP 10; TEMP 36.8; O2SAT 94
--- NOTE | 2023-08-18 13:19 | PC.NURSE ---
iv removed and report called to liss GLASER at [facility].
--- NOTE | 2023-08-18 13:28 | PC.NURSE ---
tried to call brother twice with no answer... left him a message to call the hospital.
== END 2023-08-18 13:40 | disposition hospice, inpatient (51) | DRG 871 ==
LOC: ER 18:38 → 2ND 19:01
PROVIDERS: Internal Medicine; Nurse Practitioner Acute Care; Admitting Provider Internal Medicine Adolescent Medicine; Emergency Provider Emergency Medicine; PCP Internal Medicine Adolescent Medicine; Visit Provider Internal Medicine Adolescent Medicine
DX: A41.9 Sepsis, unspecified organism (principal); G93.41 Metabolic encephalopathy; R65.21 Severe sepsis with septic shock; I21.4 Non-ST elevation (NSTEMI) myocardial infarction; J69.0 Pneumonitis due to inhalation of food and vomit; S22.31XA Fracture of one rib, right side, initial encounter for closed fracture; N30.00 Acute cystitis without hematuria; E87.20 Acidosis, unspecified; E11.9 Type 2 diabetes mellitus without complications; E03.9 Hypothyroidism, unspecified; T79.6XXA Traumatic ischemia of muscle, initial encounter; R74.01 Elevation of levels of liver transaminase levels; E86.0 Dehydration; X58.XXXA Exposure to other specified factors, initial encounter
CPT/HCPCS: 36415; 51702; 70450; 70496; 70498; 70551; 71045; 71275; 74018; 74177; 80048; 80053; 80202; 81001; 82009; 82140; 82550; 82803; 82962; 83605; 83735; 84439; 84443; 84484; 85007; 85025; 86713; 87040; 87186; 87641; 93005; 93306; 93308; 97110; 97140; 97163; 97165; 97530; 99291; J0696; J2543; J3475; Q9967